=== PATIENT | male | born 1950 | race Caucasian/White ===

== ENCOUNTER 2016-04-28 10:18 | Emergency (ER) | payer MEDICARE ==
[~2016-04-28] VITALS: Ht 185.4 cm; Wt 83.9 kg
--- NOTE | 2016-04-28 13:02 | RAD ---
Acute abdomen series History: Constipation for 4 days. Comparison: 11/15/2011. Findings: Frontal view of the chest. Cardiac silhouette appears within normal limits for size. No pneumoperitoneum or pneumothorax is identified. No acute infiltrate is seen. Aortic atherosclerosis is seen. Supine and upright views of the abdomen. No dilated loops of bowel are seen. Gastrostomy tube is present. Moderate colonic stool is seen. Several calcifications are seen in both sides of the upper abdomen, could be nephroliths versus other soft tissue calcifications versus bowel contents. Impression: No acute abnormality identified in the chest or abdomen.
[2016-04-28] MEDS ORDERED: SODIUM PHOSPHATES 19/7GM 133 ML ENEMA. PR ONE (14:15)
--- NOTE | 2016-04-28 14:58 | PHYS DOC ---
Past Medical History Past Medical History: Other Additional Past Medical Histor: TBI Past Surgical History: Other Additional Past Surgical Histo: PEG tube placement Alcohol Use: None Drug Use: None Adult General Chief Complaint Chief Complaint: ABDOMINAL PAIN HPI HPI Patient is a 66 year old male who presents for evaluation after family reports the patient has not had a bowel movement in 4 days. 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 The family states that patient has history of constipation. The patient's is typically able to help the patient have a bowel movement by using laxatives and enemas as necessary, however she has tried both of these modalities and has not been able to get any results. The patient has become more agitated at home and they're concerned that the patient may be having abdominal pain due to lack of bowel movement. The patient otherwise has had no fevers. The patient has a chronic cough and the states that this has not changed recently. The brought the patient to the hospital as she would like to make sure the patient is not having any signs of bowel obstruction and would like assistance with helping the patient have a bowel movement. Review of Systems Review of Systems Unable to obtain from patient due to nonverbal status with history of traumatic brain injury Current Medications Current Medications Current Medications Medications (Trade) Dose Ordered Sig/Zak Start Time Stop Time Status Last Admin Dose Admin Sodium Biphosphate/ Sodium Phosphate (Fleet Adult) 133 ml 1X ONCE 04/28/16 14:15 04/28/16 14:16 DC 04/28/16 14:15 133 ML Allergies Allergies Allergies Coded Allergies Type Severity Reaction Last Updated Verified cyclobenzaprine Allergy Intermediate 04/28/16 Yes ibuprofen Allergy Intermediate 04/28/16 Yes ketorolac Allergy Intermediate 04/28/16 Yes levofloxacin Allergy Intermediate 04/28/16 Yes meperidine Allergy Intermediate 04/28/16 Yes oxycodone Allergy Intermediate 04/28/16 Yes propoxyphene Allergy Intermediate 04/28/16 Yes Physical Exam Physical Exam Constitutional: Alert, afebrile, moaning, appears in chronically debilitated state. [] HENT: Normocephalic, atraumatic, bilateral external ears normal, oropharynx moist, no oral exudates, nose normal. [] Eyes: PERRLA, EOMI, conjunctiva normal, no discharge. [] Neck: Normal range of motion, no tenderness, supple, no stridor. [] Cardiovascular:Heart rate regular rhythm, no murmur [] Lungs & Thorax: Bilateral breath sounds clear to auscultation [] Abdomen: Bowel sounds hypoactive, soft, no tenderness, no masses, no pulsatile masses. [] Skin: Warm, dry, no erythema, no rash. [] Back: No tenderness, no CVA tenderness. [] Extremities: No tenderness, no cyanosis, no clubbing, ROM intact, no edema. [] Neurologic: Alert, does not follow commands, incomprehensible speech, quadriplegic. [] Current Patient Data Vital Signs Vital Signs Date Time Temp Pulse Resp B/P Pulse Ox O2 Delivery O2 Flow Rate FiO2 04/28/16 17:35 84 22 129/61 97 04/28/16 10:38 98.9 Nasal Cannula 2 98.9 EKG EKG Not performed [] Radiology/Procedures Radiology/Procedures [facility] [address] [place] [address] IMAGING REPORT Signed PATIENT: POP ROQUE ACCOUNT: [id number] : 1950 LOCATION: ER AGE: 66 SEX: M EXAM STATUS: REG ER ORD. PHYSICIAN: ANN BUCKLEY MD REASON: no bowel movement for 4 days PROCEDURE: ACUTE ABDOMEN SERIES Acute abdomen series History: Constipation for 4 days. Comparison: 11/15/2011. Findings: Frontal view of the chest. Cardiac silhouette appears within normal limits for size. No pneumoperitoneum or pneumothorax is identified. No acute infiltrate is seen. Aortic atherosclerosis is seen. Supine and upright views of the abdomen. No dilated loops of bowel are seen. Gastrostomy tube is present. Moderate colonic stool is seen. Several calcifications are seen in both sides of the upper abdomen, could be nephroliths versus other soft tissue calcifications versus bowel contents. Impression: No acute abnormality identified in the chest or abdomen. DICTATED and SIGNED BY: JASON ESTRELLA MD DATE: 04/28/16 1259 CC: ANN BUCKLEY MD; CRISTIAN BANKS NP ~ [] Course & Med Decision Making Course & Med Decision Making Pertinent Labs and Imaging studies reviewed. (See chart for details) Patient underwent manual disimpaction in the emergency department with return of soft stool. The patient additionally had a Fleet enema done with return of moderate amounts of stool. The patient status has improved at this time. The patient's would like the patient transferred back home by ambulance. The patient was transferred back by [facility] ambulance in good condition. Dragon Disclaimer Dragon Disclaimer This electronic medical record was generated, in whole or in part, using a voice recognition dictation system. Departure Departure Impression: Primary Impression: Constipation Additional Impression: History of traumatic brain injury Disposition: HOME, SELF-CARE Condition: IMPROVED Referrals: CRISTIAN BANKS [employer] (PCP) Patient Instructions: Constipation, Adult Additional Instructions: Follow-up through primary doctor in the next 5-7 days. Return to the emergency department for any worsening symptoms. Problem Qualifiers Primary Impression: Constipation Constipation type: unspecified constipation type Qualified Code: K59.00 - Constipation, unspecified ANN BUCKLEY MD Apr 28, 2016 14:58
[2016-04-28 17:35] VITALS: BP 129/61
== END 2016-04-28 18:42 | disposition home or self-care (01) ==
LOC: ER 10:18
DX: K59.00 Constipation, unspecified (principal); Z87.820 Personal history of traumatic brain injury; Z88.1 Allergy status to other antibiotic agents; Z88.6 Allergy status to analgesic agent; Z88.5 Allergy status to narcotic agent; Z88.8 Allergy status to other drugs, medicaments and biological substances
CPT/HCPCS: 74022; 99284

== ENCOUNTER 2016-08-08 05:29 | Emergency (ER) | payer MEDICARE ==
[~2016-08-08] VITALS: Ht 182.9 cm; Wt 79.4 kg
[2016-08-08] MEDS ORDERED: IPRATRPIUM/ALBUTEROL 0.5/2.5MG 3 ML NEBU. NEB ONE (06:00)
[2016-08-08 06:20] LABS: BASO % 1 % (0-3); EOS % 3 % (0-3); HEMATOCRIT 40.8 % (39.0-53.0); LYMPH # 1.2 x10^3/uL (1.0-4.8); LYMPH % 23 % (24-48); MEAN CORPUSCULAR HEMOGLOBIN 34 pg (25-35); MEAN CORPUSCULAR HGB CONC 34 g/dL (31-37); MEAN CORPUSCULAR VOLUME 100 fL (79-100); MONO % 10 % (0-9); NEUT % 63 % (31-73); PLATELET COUNT 179 x10^3/uL (140-400); RED BLOOD COUNT 4.08 x10^6/uL (4.30-5.70); RED CELL DISTRIBUTION WIDTH 12.8 % (11.5-14.5); WHITE BLOOD COUNT 4.9 x10^3/uL (4.0-11.0)
[2016-08-08 06:28] LABS: CALCIUM 9.1 mg/dL (8.5-10.1); CREATININE 0.5 mg/dL (0.7-1.3); GFR 165.9; POTASSIUM 4.8 mmol/L (3.5-5.1)
[2016-08-08 06:34] LABS: ALBUMIN 3.2 g/dL (3.4-5.0); DIRECT BILIRUBIN 0.2 mg/dL (0.0-0.2); TOTAL BILIRUBIN 0.8 mg/dL (0.2-1.0); TOTAL PROTEIN 7.6 g/dL (6.4-8.2)
[2016-08-08 07:00] VITALS: BP 123/86
[2016-08-08] MEDS ORDERED: AZIT250T6 PO (07:12)
[2016-08-08] MEDS ORDERED: PROAIR HFA8.5 GM INH (07:13)
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
--- NOTE | 2016-08-08 07:52 | RAD ---
AP portable chest radiograph 08/08/2016 Clinical History: Shortness of breath. An AP portable erect digital radiograph of the chest was obtained. Comparison study is dated 04/28/2016. The cardiac silhouette is borderline enlarged. The thoracic aorta is tortuous. Atherosclerotic calcification of the thoracic aorta is seen. Areas of subsegmental atelectasis and/or infiltrate are seen involving both lower lobes, left greater than right. No pneumothorax or pleural effusion is seen. The osseous structures are unchanged. Impression: Areas of subsegmental atelectasis and/or infiltrate are seen involving both lower lobes, left greater than right.
== END 2016-08-08 08:42 | disposition home or self-care (01) ==
LOC: ER 05:29
DX: R05 Cough (principal); R06.2 Wheezing; J43.9 Emphysema, unspecified; F43.10 Post-traumatic stress disorder, unspecified; Z87.820 Personal history of traumatic brain injury; Z87.01 Personal history of pneumonia (recurrent); Z88.6 Allergy status to analgesic agent; Z88.1 Allergy status to other antibiotic agents; Z88.5 Allergy status to narcotic agent; Z88.8 Allergy status to other drugs, medicaments and biological substances
CPT/HCPCS: 36415; 71010; 80048; 80076; 83690; 83880; 84484; 85027; 94640; 99285; J7620

== ENCOUNTER 2017-07-10 04:14 | Emergency (ER) | payer MEDICARE ==
[2017-07-10 05:07] LABS: INFLUENZA A PATIENT NEGATIVE (NEGATIVE); INFLUENZA B PATIENT NEGATIVE (NEGATIVE); OBC FLU VALID
[2017-07-10 05:31] LABS: ADD MAN DIFF? NO
[2017-07-10 06:06] LABS: ANION GAP 6 (6-14); BLOOD UREA NITROGEN 18 mg/dL (8-26); CALCIUM 8.7 mg/dL (8.5-10.1); CARBON DIOXIDE 32 mmol/L (21-32); CHLORIDE 103 mmol/L (98-107); CREATININE 0.6 mg/dL (0.7-1.3); GLUCOSE 106 mg/dL (70-99); POTASSIUM 4.1 mmol/L (3.5-5.1); SODIUM 141 mmol/L (136-145)
[2017-07-10 06:18] LABS: TROPONINI < 0.017 ng/mL (0.000-0.055)
[2017-07-10 06:19] LABS: NT-PRO BNP 127 pg/mL (0-124)
[2017-07-10 06:43] LABS: BASO % 1 % (0-3); EOS # 0.1 x10^3/uL (0.0-0.7); EOS % 2 % (0-3); HEMATOCRIT 39.3 % (39.0-53.0); HEMOGLOBIN 13.4 g/dL (13.0-17.5); LYMPH # 1.1 x10^3/uL (1.0-4.8); LYMPH % 21 % (24-48); MEAN CORPUSCULAR HEMOGLOBIN 34 pg (25-35); MEAN CORPUSCULAR HGB CONC 34 g/dL (31-37); MEAN CORPUSCULAR VOLUME 99 fL (79-100); MONO # 0.4 x10^3/uL (0.0-1.1); MONO % 9 % (0-9); NEUT # 3.4 x10^3uL (1.8-7.7); NEUT % 68 % (31-73); PLATELET COUNT 214 x10^3/uL (140-400); RED BLOOD COUNT 3.96 x10^6/uL (4.30-5.70); RED CELL DISTRIBUTION WIDTH 13.4 % (11.5-14.5); WHITE BLOOD COUNT 5.1 x10^3/uL (4.0-11.0)
== END 2017-07-10 09:29 | disposition home or self-care (01) ==
LOC: ER 04:14
DX: R05 Cough (principal); R06.00 Dyspnea, unspecified; F43.10 Post-traumatic stress disorder, unspecified; Z87.820 Personal history of traumatic brain injury; Z88.1 Allergy status to other antibiotic agents; Z88.5 Allergy status to narcotic agent; Z88.6 Allergy status to analgesic agent; Z88.8 Allergy status to other drugs, medicaments and biological substances
CPT/HCPCS: 36415; 71045; 80048; 83880; 84484; 85025; 87804; 87804-59; 93005; 99285-25

== ENCOUNTER → 2018-06-29 | Outpatient (CLI) | payer MEDICARE, OTHER ==
[2017-07-10 09:18] VITALS: BP 100/57
[~2018-06-29] MED LIST: ALBU2.5V8 INH; AZIT250T6 PO
--- NOTE | 2018-06-29 15:58 | RAD ---
EXAM: CHEST 2 VIEWS. HISTORY: Cough, quadriplegia. COMPARISON: 07/10/2017. FINDINGS: Frontal and lateral views of the chest are obtained. Opacity in the left base is consistent with a small left pleural effusion along with atelectasis or infiltrate. There is no pneumothorax. The heart is not enlarged. There are atherosclerotic calcifications of the aorta. IMPRESSION: 1. Small left pleural effusion with mild left basilar atelectasis or infiltrate. Electronically signed by: Cas Vazquez MD (06/29/2018 3:55 PM) [place] [id number]
== END | disposition home or self-care (01) ==
LOC: RAD 14:55
PROVIDERS: ATTEND Family Medicine
DX: J90 Pleural effusion, not elsewhere classified (principal); G82.50 Quadriplegia, unspecified; I70.0 Atherosclerosis of aorta
CPT/HCPCS: 71046

== ENCOUNTER 2018-11-20 22:19 | Inpatient (IN) | payer OTHER ==
[~2018-11-20] VITALS: Ht 185.4 cm; Wt 78.0 kg
[~2018-11-20 22:19] MED LIST changes: +ALBU2.5V5 NEB; +BISM262O3 PEG; +DEXT15DR5 EACHEYE; +FLUT16SP NS; +GUAI100L12 PO; +LINE600T PO; +LORA10CA PO; +MUPI15CR8 TP; +TRAM50TA PO
[2018-11-20] MEDS ORDERED: 0.9 % SOD CHL for STERILE FIELD 10 ML DISP.SYRIN. ONE (22:37)
[2018-11-20] MEDS ORDERED: PROPOFOL 100 ML IV ONE (22:40)
[2018-11-20] MEDS: IV NORMAL SALINE 1000ML BAG 1,000 ML IV SCH ×2 (22:40→23:20)
[2018-11-20] MEDS ORDERED: PIP/TAZO PER PHARMACY MC PRN (23:00)
[2018-11-20] MEDS ORDERED: NOREPINEPHRIN 8MG/250ML PREMIX 250 ML IV ONE ×2 (23:00→23:30)
[2018-11-20 23:26] LABS: BASO # 0.2 x10^3/uL (0.0-0.2); BASO % 2 % (0-3); EOS % 0 % (0-3); HEMATOCRIT 34.6 % (39.0-53.0); HEMOGLOBIN 11.5 g/dL (13.0-17.5); LYMPH # 0.2 x10^3/uL (1.0-4.8); LYMPH % 1 % (24-48); MEAN CORPUSCULAR HEMOGLOBIN 33 pg (25-35); MEAN CORPUSCULAR HGB CONC 33 g/dL (31-37); MEAN CORPUSCULAR VOLUME 101 fL (79-100); MONO # 0.6 x10^3/uL (0.0-1.1); MONO % 4 % (0-9); NEUT # 13.6 x10^3/uL (1.8-7.7); NEUT % 93 % (31-73); PLATELET COUNT 222 x10^3/uL (140-400); RED BLOOD COUNT 3.43 x10^6/uL (4.30-5.70); WHITE BLOOD COUNT 14.6 x10^3/uL (4.0-11.0)
[2018-11-20] MEDS ORDERED: PROPOFOL 10 MG/ML (20ML) VIAL. IV ONE (23:30)
[2018-11-20 23:39] LABS: BILIRUBIN,URINE NEGATIVE (NEG); CLARITY,URINE CLEAR; COLOR,URINE YELLOW; NITRITE,URINE NEGATIVE (NEG); PROTEIN,URINE 30 mg/dL (NEG-TRACE)
[2018-11-20 23:44] LABS: CALCIUM 8.1 mg/dL (8.5-10.1); CREATININE 0.9 mg/dL (0.7-1.3); GFR 83.7; POTASSIUM 3.8 mmol/L (3.5-5.1)
[2018-11-20] MEDS ORDERED: PROPOFOL 50 ML IV ONE (23:45)
[2018-11-20 23:48] LABS: ALBUMIN 2.2 g/dL (3.4-5.0); ALBUMIN/GLOBULIN RATIO 0.6 (1.0-1.7); MAGNESIUM 1.7 mg/dL (1.8-2.4); TOTAL BILIRUBIN 0.6 mg/dL (0.2-1.0); TOTAL PROTEIN 5.9 g/dL (6.4-8.2)
[2018-11-20 23:56] LABS: AMORPHOUS SEDIMENT,UR PRESENT /HPF; BACTERIA,URINE 0 /HPF (0-FEW); GRANULAR CASTS,URINE FEW /HPF; HYALINE CASTS, URINE MODERATE /HPF; SQUAMOUS EPITHELIAL CELL,UR FEW /LPF; WBC,URINE 20-40 /HPF (0-4)
[2018-11-21] VITALS (30 sets, daily range): BP systolic 47–155; BP diastolic 35–79
[2018-11-21] LABS: BASE EXCESS ABG 3 mmol/L (-3-3); HCO3 ABG 28 mmol/L (21-28); PCO2 ABG 44 mmHg (35-46); PO2 ABG 172 mmHg (65-108); SAT O2 ABG 99 % (92-99)
[2018-11-21 00:01] LABS: FIO2 ABG 100
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
[2018-11-21] MEDS: IV NORMAL SALINE 1000ML BAG 1,000 ML IV SCH (00:50)
[2018-11-21] MEDS ORDERED: IV NORMAL SALINE 1000ML BAG 1,000 ML IV ONE (01:00)
[2018-11-21 01:36] LABS: % LYMPHS 1 % (24-48); % MONOS 2 % (0-10); % SEGS 97 % (35-66)
[2018-11-21 01:37] LABS: PLT ESTIMATE ADEQUATE (ADEQUATE)
[2018-11-21] MEDS ORDERED: VANCOMYCIN 2 GM in IV NORMAL SALINE 500ML BAG 500 ML IV ONE (02:00)
[2018-11-21] MEDS ORDERED: ETOMIDATE 20 MG/10 ML VIAL. IV ONE (03:11)
[2018-11-21] MEDS ORDERED: ROCURONIUM 50 MG/5 ML VIAL. ONE ×2 (03:12)
[2018-11-21] MEDS: PROPOFOL 100 ML IV PRN ×2 (03:18→10:05)
--- NOTE | 2018-11-21 04:00 | NUR ---
PATIENT ADMITTED TO ICU ROOM 105 FROM ED. REPORT RECEIVED FROM MARCELLA SARAVIA. UPON ARRIVAL TO ICU PATIENT INTUBATED WITH PROPOFOL AND LEVOPHED INFUSING. BP ELEVATED, LEVOPHED HELD THEN RESTARTED, TITRATED. IVFS RECEIVED FROM ED PER SEPSIS PROTOCOL. ARRIVED WITH ABX, AND BLOOD CULTURES AND LACTIC ACID DRAWN. NO FAMILY PRESENT AT BEDSIDE. UNABLE TO COMPLETE FULL ADMISSION QUESTIONS AND NO PAPERWORK NOTED FROM [facility]. VSS WITH LEVOPHED. WILL CONTINUE TO MONITOR.
[2018-11-21] MEDS: PIPERACILLIN/TAZOBACTAM 3.375 GM in IV NORMAL SALINE 50ML 50 ML IV SCH ×4 (04:07→18:00)
[2018-11-21] MEDS: VANCOMYCIN PER PHARMACY MC PRN (05:02)
--- NOTE | 2018-11-21 05:03 | NUR ---
Pharmacy Vancomycin Dosing Note S:Consulted to monitor and dose vancomycin started 11/21/18. O:POP ROQUE is a 68 year old M with Sepsis Pneumonia . Height: 6 feet, 1 inches Weight: 83.262658 kg [place] Body Weight: 79.90 Adjusted Body Weight: 81.38 Dosing Weight: Actual Other Antibiotics: ZOSYN 3.375 GM Q6H LABS: Last BUN: 24 Last Creatinine: 0.9 Creatinine Clearance: 81 mL/min Last WBC: 14.6 Last Procalcitonin: Tmax (past 24 hours): Microbiology: I/O: Drug Levels: Last level: on at Last dose given 11/21/18 at 0400 Vancomycin Dosing: Loading Dose: 2000 mg x1 Dosing Weight: Actual Target Trough: 15-20 A: Based on: WT AND CRCL P: 1. Begin Vancomycin 1250 mg IV q12h 2. Follow up Trough level on 11/22/18 at 1530 3. Pharmacy will continue to monitor, follow and adjust therapy as needed. KAYLA MILES RPH, 11/21/18 0503 Signed: 11/21/18 at 0503 by KAYLA MILES RPH PHA
--- NOTE | 2018-11-21 06:52 | EKG ---
[facility] [address] [place] [address] Test Date: 2018-11-20 Test Time: 23:07:23 Pat Name: POP ROQUE Department: Room: Gender: M Quality Controller: : 1950 Requested By: LEE CROWDER Order Number: [id number] Reading MD: Measurements Intervals Louise Rate: 135 P: AL: QRS: -9 QRSD: 82 T: 57 QT: 308 QTc: 466 Interpretive Statements ATRIAL FIB./FLUTTER WITH RAPID VENTRICULAR RESPONSE LEFTWARD AXIS NON SPECIFIC T ABNORMALITY ABNORMAL ECG No previous ECG available for comparison
[2018-11-21] MEDS ORDERED: MAGNESIUM SULFATE 2GM 50 ML IV ONE (07:30)
[2018-11-21] MEDS ORDERED: NOREPINEPHRIN 8MG/250ML PREMIX 250 ML IV PRN (08:00)
--- NOTE | 2018-11-21 08:00 | RAD ---
Examination: PORTABLE CHEST 1V History: Post intubation Comparison/Correlation: 11/10/2018 portable chest x-ray exam Findings: Portable supine frontal new of the chest was obtained. Endotracheal tube terminates 0.6 cm from the nestor. Right internal jugular catheter terminates overlying the superior cavoatrial junction. Subtle opacification the left lung base which is similar to prior exam again noted. Opacification of the right lung base is mild in the interval. No pneumothorax but supine position may limit assessment. Bony structures are unremarkable. Impression: Left basilar opacification which may represent atelectasis again seen without significant change considering differences in positioning. Elevation right hemidiaphragm the interval suggested. Subtle adjacent atelectasis may be present. Electronically signed by: Mark Tilley MD (11/21/2018 7:57 AM) [facility]
--- NOTE | 2018-11-21 08:26 | RAD ---
EXAM: Abdomen, single view HISTORY: Nasogastric tube placement. COMPARISON: None. FINDINGS: A frontal view of the abdomen is obtained. There is a nasogastric tube within the stomach. There is a catheter within the superior cavoatrial junction. There is a small left pleural effusion with left lower lobe atelectasis or infiltrate. There are calcifications and clips. There are calcifications overlying the left upper quadrant. IMPRESSION: Nasogastric tube within the stomach. Small left pleural effusion with left lower lobe infiltrate. Electronically signed by: Madelin Harvey MD (11/21/2018 8:23 AM) [place] [id number]
[2018-11-21 09:14] LABS: BASE EXCESS ABG 5 mmol/L (-3-3); HCO3 ABG 27 mmol/L (21-28); PCO2 ABG 32 mmHg (35-46); PO2 ABG 135 mmHg (65-108); SAT O2 ABG 99 % (92-99)
[2018-11-21 09:16] LABS: FIO2 ABG 60
[2018-11-21] MEDS ORDERED: ENOXAPARIN 40 MG/0.4 ML SYRINGE. SQ SCH (10:15)
[2018-11-21] MEDS: MIDAZOLAM 100mg/100ml NS BAG 100 ML IV PRN (10:54)
--- NOTE | 2018-11-21 11:16 | HP ---
ADMIT DATE: CHIEF COMPLAINT: Shortness of breath. HISTORY OF PRESENT ILLNESS: The patient is a pleasant 68-year-old male who has COPD and presented with shortness of breath. Basically, he was intubated. He is now in the ICU. He apparently did have aspiration pneumonia, was placed on IV antibiotics as well. He is currently being examined in the ICU where he is on the ventilator. PAST MEDICAL HISTORY: Aspiration pneumonia, COPD, constipation, dementia, depression, diabetes, GERD, kidney stones, TBI from a suicide attempt, PTSD, AAA, cholecystectomy, PEG tube. ALLERGIES: CYCLOBENZAPRINE, IBUPROFEN, CHICORIC ACID, LEVAQUIN, MEPERIDINE, OXYCODONE AND PROPOXYPHENE NAPSYLATE. FAMILY HISTORY: Coronary artery disease. SOCIAL HISTORY: I think he lives at a facility there I think he quit smoking. No drinking or drugs. MEDICATIONS: Reviewed, please refer to the MRAD. REVIEW OF SYSTEMS: Unable to obtain. PHYSICAL EXAMINATION: VITALS: Within normal limits and are stable. GENERAL: He is sedated on the vent with the vent settings at assist control 20 respirations, 450 tidal volume, 40% FiO2 with 5 of PEEP. HEENT: Head is normocephalic, atraumatic, pupils were equally round and reactive to light and accommodation. NECK: Supple, no JVD, no thyromegaly was noted. LUNGS: He has got some hoarseness on the right upper lobe. HEART: RRR, S1, S2 present. Peripheral pulses intact, no obvious murmurs were noted. ABDOMEN: Soft, nontender. Positive bowel sounds no organomegaly, normal bowel sounds. EXTREMITIES: Without any cyanosis, clubbing, or edema. Pedal pulses intact, Homans sign is negative. NEUROLOGIC: Normal speech, normal tone. A & O x3, moves all extremities, no obvious focal deficits. PSYCHIATRIC: Normal affect, normal mood. Stable. SKIN: No ulcerations or rashes, good skin turgor, no jaundice. VASCULAR: Good capillary refill, neurovascular bundle appears to be intact. LABORATORY DATA: White count is high at 14.6, hemoglobin 11.5. ASSESSMENT AND PLAN: Aspiration pneumonia with respiratory failure and chronic obstructive pulmonary disease. The patient has been admitted. He also has a slight bump in his troponin to 0.6. We will consult Pulmonary and Cardiology, ICU monitoring, vent weaning, DVT prophylaxis. Full code. LONG-TERM PROGNOSIS: Guarded. FADI BEARD DO DR: JT/darlene JOB#: [id number] / [id number]
--- NOTE | 2018-11-21 11:41 | PDOC ---
PULMONARY PROGRESS NOTES Vitals Vital Signs Date Time Temp Pulse Resp B/P (MAP) Pulse Ox O2 Delivery O2 Flow Rate FiO2 11/21/18 11:29 98.6 72 102/69 (80) 100 98.6 11/21/18 10:00 20 Ventilator 11/21/18 08:00 15.0 Lungs: Other Skin: Warm, Dry (BP AND HEART RATE IMPROVED. ) Labs Laboratory Tests Test 11/20/18 23:02 11/20/18 23:10 11/20/18 23:15 11/21/18 01:55 Urine Collection Type Unknown Urine Color Yellow Urine Clarity Clear Urine pH 6.0 Urine Specific [place] 1.020 Urine Protein 30 mg/dL (NEG-TRACE) Urine Glucose (UA) Negative mg/dL (NEG) Urine Ketones (Stick) Negative mg/dL (NEG) Urine Blood Small (NEG) Urine Nitrite Negative (NEG) Urine Bilirubin Negative (NEG) Urine Urobilinogen Dipstick 1.0 mg/dL (0.2 mg/dL) Urine Leukocyte Esterase Trace (NEG) Urine RBC 1-2 /HPF (0-2) Urine WBC 20-40 /HPF (0-4) Urine Squamous Epithelial Cells Few /LPF Urine Amorphous Sediment Present /HPF Urine Bacteria 0 /HPF (0-FEW) Urine Hyaline Casts Moderate /HPF Urine Granular Casts Few /HPF Urine Mucus Marked /LPF White Blood Count 14.6 x10^3/uL (4.0-11.0) Red Blood Count 3.43 x10^6/uL (4.30-5.70) Hemoglobin 11.5 g/dL (13.0-17.5) Hematocrit 34.6 % (39.0-53.0) Mean Corpuscular Volume 101 fL (79-100) Mean Corpuscular Hemoglobin 33 pg (25-35) Mean Corpuscular Hemoglobin Concent 33 g/dL (31-37) Red Cell Distribution Width 13.0 % (11.5-14.5) Platelet Count 222 x10^3/uL (140-400) Neutrophils (%) (Auto) 93 % (31-73) Lymphocytes (%) (Auto) 1 % (24-48) Monocytes (%) (Auto) 4 % (0-9) Eosinophils (%) (Auto) 0 % (0-3) Basophils (%) (Auto) 2 % (0-3) Neutrophils # (Auto) 13.6 x10^3/uL (1.8-7.7) Lymphocytes # (Auto) 0.2 x10^3/uL (1.0-4.8) Monocytes # (Auto) 0.6 x10^3/uL (0.0-1.1) Eosinophils # (Auto) 0.0 x10^3/uL (0.0-0.7) Basophils # (Auto) 0.2 x10^3/uL (0.0-0.2) Segmented Neutrophils % 97 % (35-66) Lymphocytes % 1 % (24-48) Monocytes % 2 % (0-10) Platelet Estimate Adequate (ADEQUATE) Prothrombin Time 16.0 SEC (11.7-14.0) Prothromb Time International Ratio 1.3 (0.8-1.1) Sodium Level 145 mmol/L (136-145) Potassium Level 3.8 mmol/L (3.5-5.1) Chloride Level 107 mmol/L (98-107) Carbon Dioxide Level 31 mmol/L (21-32) Anion Gap 7 (6-14) Blood Urea Nitrogen 24 mg/dL (8-26) Creatinine 0.9 mg/dL (0.7-1.3) Estimated GFR (Cockcroft-Gault) 83.7 BUN/Creatinine Ratio 27 (6-20) Glucose Level 182 mg/dL (70-99) Lactic Acid Level 3.3 mmol/L (0.4-2.0) 2.4 mmol/L (0.4-2.0) Calcium Level 8.1 mg/dL (8.5-10.1) Magnesium Level 1.7 mg/dL (1.8-2.4) Total Bilirubin 0.6 mg/dL (0.2-1.0) Aspartate Amino Transf (AST/SGOT) 29 U/L (15-37) Alanine Aminotransferase (ALT/SGPT) 24 U/L (16-63) Alkaline Phosphatase 54 U/L (46-116) Troponin I Quantitative 0.642 ng/mL (0.000-0.055) GK-Djl-P-Type Natriuretic Peptide 1016 pg/mL (0-124) Total Protein 5.9 g/dL (6.4-8.2) Albumin 2.2 g/dL (3.4-5.0) Albumin/Globulin Ratio 0.6 (1.0-1.7) Lipase 59 U/L (73-393) O2 Saturation 99 % (92-99) Arterial Blood pH 7.42 (7.35-7.45) Arterial Blood pCO2 at Patient Temp 44 mmHg (35-46) Arterial Blood pO2 at Patient Temp 172 mmHg (65-108) Arterial Blood HCO3 28 mmol/L (21-28) Arterial Blood Base Excess 3 mmol/L (-3-3) FiO2 100 Test 11/21/18 08:45 O2 Saturation 99 % (92-99) Arterial Blood pH 7.54 (7.35-7.45) Arterial Blood pCO2 at Patient Temp 32 mmHg (35-46) Arterial Blood pO2 at Patient Temp 135 mmHg (65-108) Arterial Blood HCO3 27 mmol/L (21-28) Arterial Blood Base Excess 5 mmol/L (-3-3) FiO2 60 Laboratory Tests Test 11/20/18 23:02 11/20/18 23:10 11/20/18 23:15 11/21/18 01:55 Urine Collection Type Unknown Urine Color Yellow Urine Clarity Clear Urine pH 6.0 Urine Specific [place] 1.020 Urine Protein 30 mg/dL (NEG-TRACE) Urine Glucose (UA) Negative mg/dL (NEG) Urine Ketones (Stick) Negative mg/dL (NEG) Urine Blood Small (NEG) Urine Nitrite Negative (NEG) Urine Bilirubin Negative (NEG) Urine Urobilinogen Dipstick 1.0 mg/dL (0.2 mg/dL) Urine Leukocyte Esterase Trace (NEG) Urine RBC 1-2 /HPF (0-2) Urine WBC 20-40 /HPF (0-4) Urine Squamous Epithelial Cells Few /LPF Urine Amorphous Sediment Present /HPF Urine Bacteria 0 /HPF (0-FEW) Urine Hyaline Casts Moderate /HPF Urine Granular Casts Few /HPF Urine Mucus Marked /LPF White Blood Count 14.6 x10^3/uL (4.0-11.0) Red Blood Count 3.43 x10^6/uL (4.30-5.70) Hemoglobin 11.5 g/dL (13.0-17.5) Hematocrit 34.6 % (39.0-53.0) Mean Corpuscular Volume 101 fL (79-100) Mean Corpuscular Hemoglobin 33 pg (25-35) Mean Corpuscular Hemoglobin Concent 33 g/dL (31-37) Red Cell Distribution Width 13.0 % (11.5-14.5) Platelet Count 222 x10^3/uL (140-400) Neutrophils (%) (Auto) 93 % (31-73) Lymphocytes (%) (Auto) 1 % (24-48) Monocytes (%) (Auto) 4 % (0-9) Eosinophils (%) (Auto) 0 % (0-3) Basophils (%) (Auto) 2 % (0-3) Neutrophils # (Auto) 13.6 x10^3/uL (1.8-7.7) Lymphocytes # (Auto) 0.2 x10^3/uL (1.0-4.8) Monocytes # (Auto) 0.6 x10^3/uL (0.0-1.1) Eosinophils # (Auto) 0.0 x10^3/uL (0.0-0.7) Basophils # (Auto) 0.2 x10^3/uL (0.0-0.2) Segmented Neutrophils % 97 % (35-66) Lymphocytes % 1 % (24-48) Monocytes % 2 % (0-10) Platelet Estimate Adequate (ADEQUATE) Prothrombin Time 16.0 SEC (11.7-14.0) Prothromb Time International Ratio 1.3 (0.8-1.1) Sodium Level 145 mmol/L (136-145) Potassium Level 3.8 mmol/L (3.5-5.1) Chloride Level 107 mmol/L (98-107) Carbon Dioxide Level 31 mmol/L (21-32) Anion Gap 7 (6-14) Blood Urea Nitrogen 24 mg/dL (8-26) Creatinine 0.9 mg/dL (0.7-1.3) Estimated GFR (Cockcroft-Gault) 83.7 BUN/Creatinine Ratio 27 (6-20) Glucose Level 182 mg/dL (70-99) Lactic Acid Level 3.3 mmol/L (0.4-2.0) 2.4 mmol/L (0.4-2.0) Calcium Level 8.1 mg/dL (8.5-10.1) Magnesium Level 1.7 mg/dL (1.8-2.4) Total Bilirubin 0.6 mg/dL (0.2-1.0) Aspartate Amino Transf (AST/SGOT) 29 U/L (15-37) Alanine Aminotransferase (ALT/SGPT) 24 U/L (16-63) Alkaline Phosphatase 54 U/L (46-116) Troponin I Quantitative 0.642 ng/mL (0.000-0.055) TA-Pht-O-Type Natriuretic Peptide 1016 pg/mL (0-124) Total Protein 5.9 g/dL (6.4-8.2) Albumin 2.2 g/dL (3.4-5.0) Albumin/Globulin Ratio 0.6 (1.0-1.7) Lipase 59 U/L (73-393) O2 Saturation 99 % (92-99) Arterial Blood pH 7.42 (7.35-7.45) Arterial Blood pCO2 at Patient Temp 44 mmHg (35-46) Arterial Blood pO2 at Patient Temp 172 mmHg (65-108) Arterial Blood HCO3 28 mmol/L (21-28) Arterial Blood Base Excess 3 mmol/L (-3-3) FiO2 100 Test 11/21/18 08:45 O2 Saturation 99 % (92-99) Arterial Blood pH 7.54 (7.35-7.45) Arterial Blood pCO2 at Patient Temp 32 mmHg (35-46) Arterial Blood pO2 at Patient Temp 135 mmHg (65-108) Arterial Blood HCO3 27 mmol/L (21-28) Arterial Blood Base Excess 5 mmol/L (-3-3) FiO2 60 Medications Active Scripts Medications Dose Route/Sig Max Daily Dose Days Date Category Tramadol Hcl 50 Mg Tablet 50 Mg PO PRN Q6HRS PRN 11/15/18 Rx Zyvox (Linezolid) 600 Mg Tablet 600 Mg PO BID 11/15/18 Rx Mupirocin Cream (Mupirocin) 15 Gm Cream..g. 1 Justina TP TID PRN 11/10/18 Reported Guaifenesin 100 Mg/5 Ml Liquid 100 Mg PO Q8HRS PRN 11/10/18 Reported Fluticasone Propionate Nasal Brandon (Fluticasone Propionate) 16 Gm Brandon.susp 2 Brandon NS DAILY 11/10/18 Reported Claritin (Loratadine) 10 Mg Capsule 10 Mg PO DAILY PRN 11/10/18 Reported Stomach Relief (Bismuth Subsalicylate) 262 Mg/15 Ml Oral.susp 262 Mg PEG Q6HRS PRN 11/10/18 Reported Artificial Tears Eye Drops (Dextran 70/Hypromellose) 15 Ml Drops 1 Drop EACHEYE QID PRN 11/10/18 Reported Albuterol Sulfate Neb Soln (Albuterol Sulfate) 2.5 Mg/3 Ml Vial.neb 2.5 Mg NEB Q8HRS PRN 11/10/18 Reported Proair Hfa Inhaler (Albuterol Sulfate) 8.5 Gm Hfa.aer.ad 1 Puff INH PRN Q6HRS PRN 08/08/16 Rx Azithromycin Tablet (Azithromycin) 250 Mg Tablet 1 Pkg PO UD 08/08/16 Rx Impression . FULL NOTE DICTATED A/C RESP FAILURE SEPTIC SHOCK PNEUMONIA JERI VAZQUEZ MD Nov 21, 2018 11:41
--- NOTE | 2018-11-21 11:47 | PDOC ---
Infectious Disease Note Vital Sign Vital Signs Vital Signs Date Time Temp Pulse Resp B/P (MAP) Pulse Ox O2 Delivery O2 Flow Rate FiO2 11/21/18 10:00 72 20 99/56 (70) 100 Ventilator 11/21/18 08:00 15.0 11/21/18 07:00 98.0 98.0 Labs Lab Laboratory Tests Test 11/20/18 23:02 11/20/18 23:10 11/20/18 23:15 11/21/18 01:55 Urine Collection Type Unknown Urine Color Yellow Urine Clarity Clear Urine pH 6.0 Urine Specific [place] 1.020 Urine Protein 30 mg/dL (NEG-TRACE) Urine Glucose (UA) Negative mg/dL (NEG) Urine Ketones (Stick) Negative mg/dL (NEG) Urine Blood Small (NEG) Urine Nitrite Negative (NEG) Urine Bilirubin Negative (NEG) Urine Urobilinogen Dipstick 1.0 mg/dL (0.2 mg/dL) Urine Leukocyte Esterase Trace (NEG) Urine RBC 1-2 /HPF (0-2) Urine WBC 20-40 /HPF (0-4) Urine Squamous Epithelial Cells Few /LPF Urine Amorphous Sediment Present /HPF Urine Bacteria 0 /HPF (0-FEW) Urine Hyaline Casts Moderate /HPF Urine Granular Casts Few /HPF Urine Mucus Marked /LPF White Blood Count 14.6 x10^3/uL (4.0-11.0) Red Blood Count 3.43 x10^6/uL (4.30-5.70) Hemoglobin 11.5 g/dL (13.0-17.5) Hematocrit 34.6 % (39.0-53.0) Mean Corpuscular Volume 101 fL (79-100) Mean Corpuscular Hemoglobin 33 pg (25-35) Mean Corpuscular Hemoglobin Concent 33 g/dL (31-37) Red Cell Distribution Width 13.0 % (11.5-14.5) Platelet Count 222 x10^3/uL (140-400) Neutrophils (%) (Auto) 93 % (31-73) Lymphocytes (%) (Auto) 1 % (24-48) Monocytes (%) (Auto) 4 % (0-9) Eosinophils (%) (Auto) 0 % (0-3) Basophils (%) (Auto) 2 % (0-3) Neutrophils # (Auto) 13.6 x10^3/uL (1.8-7.7) Lymphocytes # (Auto) 0.2 x10^3/uL (1.0-4.8) Monocytes # (Auto) 0.6 x10^3/uL (0.0-1.1) Eosinophils # (Auto) 0.0 x10^3/uL (0.0-0.7) Basophils # (Auto) 0.2 x10^3/uL (0.0-0.2) Segmented Neutrophils % 97 % (35-66) Lymphocytes % 1 % (24-48) Monocytes % 2 % (0-10) Platelet Estimate Adequate (ADEQUATE) Prothrombin Time 16.0 SEC (11.7-14.0) Prothromb Time International Ratio 1.3 (0.8-1.1) Sodium Level 145 mmol/L (136-145) Potassium Level 3.8 mmol/L (3.5-5.1) Chloride Level 107 mmol/L (98-107) Carbon Dioxide Level 31 mmol/L (21-32) Anion Gap 7 (6-14) Blood Urea Nitrogen 24 mg/dL (8-26) Creatinine 0.9 mg/dL (0.7-1.3) Estimated GFR (Cockcroft-Gault) 83.7 BUN/Creatinine Ratio 27 (6-20) Glucose Level 182 mg/dL (70-99) Lactic Acid Level 3.3 mmol/L (0.4-2.0) 2.4 mmol/L (0.4-2.0) Calcium Level 8.1 mg/dL (8.5-10.1) Magnesium Level 1.7 mg/dL (1.8-2.4) Total Bilirubin 0.6 mg/dL (0.2-1.0) Aspartate Amino Transf (AST/SGOT) 29 U/L (15-37) Alanine Aminotransferase (ALT/SGPT) 24 U/L (16-63) Alkaline Phosphatase 54 U/L (46-116) Troponin I Quantitative 0.642 ng/mL (0.000-0.055) QZ-Erl-G-Type Natriuretic Peptide 1016 pg/mL (0-124) Total Protein 5.9 g/dL (6.4-8.2) Albumin 2.2 g/dL (3.4-5.0) Albumin/Globulin Ratio 0.6 (1.0-1.7) Lipase 59 U/L (73-393) O2 Saturation 99 % (92-99) Arterial Blood pH 7.42 (7.35-7.45) Arterial Blood pCO2 at Patient Temp 44 mmHg (35-46) Arterial Blood pO2 at Patient Temp 172 mmHg (65-108) Arterial Blood HCO3 28 mmol/L (21-28) Arterial Blood Base Excess 3 mmol/L (-3-3) FiO2 100 Test 11/21/18 08:45 O2 Saturation 99 % (92-99) Arterial Blood pH 7.54 (7.35-7.45) Arterial Blood pCO2 at Patient Temp 32 mmHg (35-46) Arterial Blood pO2 at Patient Temp 135 mmHg (65-108) Arterial Blood HCO3 27 mmol/L (21-28) Arterial Blood Base Excess 5 mmol/L (-3-3) FiO2 60 Objective Assessment Sepsis - POA 11/20 Acute Resp failure intubated Leukocytosis elevated Troponin Levofloxacin allergy Plan Plan of Care Blood cults ordered Agree with Jazmine and Edwin for now. Jazmine per pharmacy to manage F/u labs and cults Chart reviewed Poor prognosis D/w Dr. Nielsen Thank you # [id number] JAZIEL MONSALVE MD Nov 21, 2018 11:47
--- NOTE | 2018-11-21 13:21 | PDOC2 ---
RABIA LOCKHART [employer] 11/21/18 1321: CARDIAC CONSULT DATE OF CONSULT Date of Consult DATE: 11/21/18 TIME: 13:08 REASON FOR CONSULT Reason for Consult: Elevated troponin REFERRING PHYSICIAN Referring Physician: Dr. Fine SOURCE Source: Chart review, Patient HISTORY OF PRESENT ILLNESS HISTORY OF PRESENT ILLNESS This is a 68 yo male, with a history of TBI, dysphagia s/p g-tube placement, and aspiration PNA, who presented secondary to respiratory distress and altered mental status. Was significantly hypoxic with O2 in the 50's upon EMS arrival. Intubated in the ED. Troponin noted to be elevated, which prompted this consult. HPI obtained from chart review as patient is intubated/sedated and family not presently at bedside. PAST MEDICAL HISTORY Past Medical History Cardiovascular: Other (AAA) Pulmonary: COPD CENTRAL NERVOUS SYSTEM: Dementia, Other (TBI) GI: Constipation, GERD, Other (dysphagia) Hepatobiliary: Cholelithiasis, Hep A/B/C (C) Psych: Depression, Other (PTSD; suicide attempt) Renal/: UTI, Other (nephrolithasis) Endocrine: Diabetes (2) PAST SURGICAL HISTORY Past Surgical History: Cholecystectomy, Other (G-tube placement ) FAMILY HISTORY Family History: Diabetes SOCIAL HISTORY Social History Smoke: Quit ALCOHOL: none Drugs: None Lives: Senior Living CURRENT MEDICATIONS CURRENT MEDICATIONS Current Medications Medications (Trade) Dose Ordered Sig/Zak Route PRN Reason Start Time Stop Time Status Last Admin Dose Admin Vancomycin HCl (Vanco Per Pharmacy) 1 each PRN DAILY PRN MC SEE COMMENTS 11/20/18 23:00 11/21/18 05:02 Sodium Chloride 1,000 ml @ 1,000 mls/hr Q1H IV 11/20/18 23:00 11/21/18 01:14 DC 11/21/18 00:50 Norepinephrine Bitartrate 250 ml @ 0 mls/hr 1X ONCE IV 11/20/18 23:30 11/20/18 23:31 DC 11/20/18 23:26 Propofol 50 ml @ 0 mls/hr 1X ONCE IV 11/20/18 23:45 11/20/18 23:46 DC 11/20/18 23:36 Sodium Chloride 1,000 ml @ 125 mls/hr 1X ONCE IV 11/21/18 01:00 11/21/18 08:59 DC 11/21/18 01:12 Vancomycin HCl 2 gm/Sodium Chloride 500 ml @ 250 mls/hr 1X ONCE IV 11/21/18 02:00 11/21/18 03:59 DC 11/21/18 04:06 Piperacillin Sod/ Tazobactam Sod 3.375 gm/Sodium Chloride 50 ml @ 100 mls/hr Q6HRS IV 11/21/18 01:45 11/21/18 08:17 Propofol 100 ml @ 0 mls/hr CONT PRN IV SEE I/O RECORD 11/21/18 03:00 11/21/18 10:05 Magnesium Sulfate 50 ml @ 25 mls/hr 1X ONCE IV 11/21/18 07:30 11/21/18 09:29 DC 11/21/18 08:17 Midazolam HCl 100 ml @ 0 mls/hr CONT PRN IV SEE PROTOCOL 11/21/18 10:15 11/21/18 10:54 Enoxaparin Sodium (Lovenox 40mg Syringe) 40 mg Q24H SQ 11/21/18 10:15 11/21/18 10:51 ALLERGIES ALLERGIES: Coded Allergies: cyclobenzaprine (Verified Allergy, Intermediate, 04/28/16) ibuprofen (Verified Allergy, Intermediate, 04/28/16) ketorolac (Verified Allergy, Intermediate, 04/28/16) levofloxacin (Verified Allergy, Intermediate, 04/28/16) meperidine (Verified Allergy, Intermediate, 04/28/16) oxycodone (Verified Allergy, Intermediate, 04/28/16) propoxyphene (Verified Allergy, Intermediate, 04/28/16) ROS Review of System unobtainable PHYSICAL EXAM PHYSICAL EXAM General: intubated, sedated HEENT: Atraumatic, Mucous membr. moist/pink Lungs: Other (diminished, mechanical vent) Heart: No murmurs, Other (AFIB rate controlled, distant heart tones) Abdomen: Soft, Other ( PEG in place) Extremities: No cyanosis, No edema Skin: No breakdown, No significant lesion Neuro: sedated MUSCULOSKELETAL: Osteoarthritic changes both hands VITALS/I&O VITALS/I&O: Vital Signs Date Time Temp Pulse Resp B/P (MAP) Pulse Ox O2 Delivery O2 Flow Rate FiO2 11/21/18 12:45 100 Ventilator 11/21/18 11:29 98.6 72 102/69 (80) 98.6 11/21/18 10:00 20 11/21/18 08:00 15.0 I & O 11/20/18 11/20/18 11/21/18 15:00 23:00 07:00 Intake Total 3071.18 ml Output Total 200 ml Balance 2871.18 ml LABS Lab: Laboratory Tests Test 11/20/18 23:02 11/20/18 23:10 11/20/18 23:15 11/21/18 01:55 Urine Collection Type Unknown Urine Color Yellow Urine Clarity Clear Urine pH 6.0 Urine Specific [place] 1.020 Urine Protein 30 mg/dL (NEG-TRACE) Urine Glucose (UA) Negative mg/dL (NEG) Urine Ketones (Stick) Negative mg/dL (NEG) Urine Blood Small (NEG) Urine Nitrite Negative (NEG) Urine Bilirubin Negative (NEG) Urine Urobilinogen Dipstick 1.0 mg/dL (0.2 mg/dL) Urine Leukocyte Esterase Trace (NEG) Urine RBC 1-2 /HPF (0-2) Urine WBC 20-40 /HPF (0-4) Urine Squamous Epithelial Cells Few /LPF Urine Amorphous Sediment Present /HPF Urine Bacteria 0 /HPF (0-FEW) Urine Hyaline Casts Moderate /HPF Urine Granular Casts Few /HPF Urine Mucus Marked /LPF White Blood Count 14.6 x10^3/uL (4.0-11.0) H Red Blood Count 3.43 x10^6/uL (4.30-5.70) L Hemoglobin 11.5 g/dL (13.0-17.5) L Hematocrit 34.6 % (39.0-53.0) L Mean Corpuscular Volume 101 fL (79-100) H Mean Corpuscular Hemoglobin 33 pg (25-35) Mean Corpuscular Hemoglobin Concent 33 g/dL (31-37) Red Cell Distribution Width 13.0 % (11.5-14.5) Platelet Count 222 x10^3/uL (140-400) Neutrophils (%) (Auto) 93 % (31-73) H Lymphocytes (%) (Auto) 1 % (24-48) L Monocytes (%) (Auto) 4 % (0-9) Eosinophils (%) (Auto) 0 % (0-3) Basophils (%) (Auto) 2 % (0-3) Neutrophils # (Auto) 13.6 x10^3/uL (1.8-7.7) H Lymphocytes # (Auto) 0.2 x10^3/uL (1.0-4.8) L Monocytes # (Auto) 0.6 x10^3/uL (0.0-1.1) Eosinophils # (Auto) 0.0 x10^3/uL (0.0-0.7) Basophils # (Auto) 0.2 x10^3/uL (0.0-0.2) Segmented Neutrophils % 97 % (35-66) H Lymphocytes % 1 % (24-48) L Monocytes % 2 % (0-10) Platelet Estimate Adequate (ADEQUATE) Prothrombin Time 16.0 SEC (11.7-14.0) H Prothrombin Time INR 1.3 (0.8-1.1) H Sodium Level 145 mmol/L (136-145) Potassium Level 3.8 mmol/L (3.5-5.1) Chloride Level 107 mmol/L (98-107) Carbon Dioxide Level 31 mmol/L (21-32) Anion Gap 7 (6-14) Blood Urea Nitrogen 24 mg/dL (8-26) Creatinine 0.9 mg/dL (0.7-1.3) Estimated GFR (Cockcroft-Gault) 83.7 BUN/Creatinine Ratio 27 (6-20) H Glucose Level 182 mg/dL (70-99) H Lactic Acid Level 3.3 mmol/L (0.4-2.0) H 2.4 mmol/L (0.4-2.0) H Calcium Level 8.1 mg/dL (8.5-10.1) L Magnesium Level 1.7 mg/dL (1.8-2.4) L Total Bilirubin 0.6 mg/dL (0.2-1.0) Aspartate Amino Transferase (AST) 29 U/L (15-37) Alanine Aminotransferase (ALT) 24 U/L (16-63) Alkaline Phosphatase 54 U/L (46-116) Troponin I Quantitative 0.642 ng/mL (0.000-0.055) DC-Nsu-R-Type Natriuretic Peptide 1016 pg/mL (0-124) H Total Protein 5.9 g/dL (6.4-8.2) L Albumin 2.2 g/dL (3.4-5.0) L Albumin/Globulin Ratio 0.6 (1.0-1.7) L Lipase 59 U/L (73-393) L O2 Saturation 99 % (92-99) Arterial Blood pH 7.42 (7.35-7.45) Arterial Blood pCO2 at Patient Temp 44 mmHg (35-46) Arterial Blood pO2 at Patient Temp 172 mmHg (65-108) H Arterial Blood HCO3 28 mmol/L (21-28) Arterial Blood Base Excess 3 mmol/L (-3-3) FiO2 100 Test 11/21/18 08:45 O2 Saturation 99 % (92-99) Arterial Blood pH 7.54 (7.35-7.45) H Arterial Blood pCO2 at Patient Temp 32 mmHg (35-46) L Arterial Blood pO2 at Patient Temp 135 mmHg (65-108) H Arterial Blood HCO3 27 mmol/L (21-28) Arterial Blood Base Excess 5 mmol/L (-3-3) H FiO2 60 Laboratory Tests 11/20/18 23:10 Laboratory Tests 11/20/18 23:10 ECHOCARDIOGRAM ECHOCARDIOGRAM <Conclusion> The left ventricular systolic function is normal and the ejection fraction is within normal range. The Ejection Fraction is >55%. There is normal LV segmental wall motion. Technically difficult study. DATE: 11/11/18 1015 ASSESSMENT/PLAN ASSESSMENT/PLAN 1. Acute respiratory failure secondary; s/p intubation 2. Aspiration PNA; as per ID 3. Leukocytosis, lactic acidosis, sepsis. Requiring low-dose Levo 4. Elevated troponin; most probably type II, demand ischemia. Recent echo with preserved LV systolic function 5. AFIB with RVR; rate now controlled 6. Hypomagnesemia; replaced 7. Hx of TBI/anoxic brain injury 8. Debility/dysphagia; s/p G-tube Recommendations Dig IV PRN Add ASA for stroke prevention. Consider anticoagulation Pressor support as warranted Supportive care KITTY MENDOZA MD 11/21/18 1640: CARDIAC CONSULT ASSESSMENT/PLAN ASSESSMENT/PLAN Patient seen and examined. Agree with WEIGHT CONTROL ENGINEER's assessment and plan. Slight troponin elevation probably demand ischemia. Recent 2-D echo showed normal LV function. Atrial fibrillation rate better controlled. Continue treatment for acute respiratory failure per pulmonary team and aspiration pneumonia per ID team. Thank you for your consultation. RABIA LOCKHART APRN Nov 21, 2018 13:21 KITTY MENDOZA MD Nov 21, 2018 16:40
[2018-11-21] MEDS: ASPIRIN CHEWABLE 81 MG TABLET. PO SCH (16:00)
[2018-11-21] MEDS: VANCOMYCIN 1.25 GM in IV NORMAL SALINE 250ML 250 ML IV SCH (16:00)
[2018-11-21] MEDS: FAMOTIDINE 20 MG/2 ML VIAL IVP SCH (20:59)
[2018-11-21] MEDS ORDERED: CHLORHEXIDINE 0.12% 15 ML MOUTHWASH. MM SCH (21:00)
[2018-11-22] VITALS (27 sets, daily range): BP systolic 75–135; BP diastolic 49–78
[2018-11-22] MEDS: PIPERACILLIN/TAZOBACTAM 3.375 GM in IV NORMAL SALINE 50ML 50 ML IV SCH ×5 (00:03→23:52)
--- NOTE | 2018-11-22 02:56 | CONS ---
DATE OF CONSULTATION: 11/21/2018 ATTENDING PHYSICIAN: Andreina Fine DO REASON FOR CONSULTATION: The patient seen in pulmonary consultation at the request of Dr. Fine for vent management and possible sepsis. HISTORY OF PRESENT ILLNESS: The patient is a 68-year-old that lives at home with his . When his was out of town, apparently he is in a intermediate unit. He was brought by ambulance for altered mental status, respiratory distress. He was in unconscious state, felt like he might have aspirated. His O2 sats were 50% upon arrival. He was initially bagged and eventually intubated. He is currently in the intensive care unit. He is on Levophed and his blood pressure mean is around 60. He is on IV propofol along with some IV antibiotics. No further history is obtained from the patient. There are no family members available. PAST MEDICAL HISTORY: Otherwise, obtained from reviewing the previous records. He was actually here on 11/10/2018 and discharged on the for aspiration pneumonia. The patient has a prior history of traumatic brain injury, suicide attempts in the past, emphysema, post-traumatic stress syndrome, aortic aneurysm, COPD, dementia, depression, diabetes, gastroesophageal reflux, kidney stone. He has a PEG in place. PAST SURGICAL HISTORY: Status post PEG tube placement. SOCIAL HISTORY: I believe he [facility] a [facility] now. ALLERGIES: LISTED TO LEVAQUIN. HE IS ALSO ALLERGIC TO CYCLOBENZAPRINE, IBUPROFEN, KETOROLAC, MEPERIDINE, OXYCODONE AND PROPOXYPHENE. REVIEW OF SYSTEMS: Unobtainable secondary to the patient's condition. PHYSICAL EXAMINATION: GENERAL: The patient was in the intensive care unit, once again receiving pressors. VITAL SIGNS: His T-max was 98.8. HEENT: Eyes, the sclerae were nonicteric. NECK: Jugular venous distention could not be assessed secondary to body habitus. CHEST: Full expansion. LUNGS: Crackles throughout both lung rucker. CARDIOVASCULAR: Regular rate and rhythm with S1, S2, no S3. ABDOMEN: PEG in place. It was tender with the patient kind of retracted with deep palpation. EXTREMITIES: No clubbing, cyanosis. Minimal edema. NEUROLOGIC: The patient was sedated. LABORATORY DATA: Labs were reviewed. White count was elevated at 14,000. Arterial blood gas; pH of 7.54, PaCO2 of 32, pO2 of 132. Electrolytes were normal. BUN was normal. Creatinine was normal. Lactic acid level was elevated with decrease to 2.4 upon repeat. Troponin level was elevated. BNP was elevated. Albumin was low. Lipase was 59. AST and ALT were normal. INR was 1.1. UA was noted. He did have 20-40 wbc's. Chest x-ray was reviewed. There are infiltrates bibasilar. Right hemidiaphragm is elevated. There was left basilar consolidation. IMPRESSION: 1. Acute respiratory failure, multifactorial. 2. Aspiration pneumonia. 3. Suspect gram-negative, possibly gram-positive and anaerobes. 4. Septic shock. 5. Underlying dementia and depression. 6. Type 2 diabetes. 7. Gastroesophageal reflux. 8. Status post PEG tube placement in the past. 9. Multiple other comorbidities as indicated above. 10. Elevated troponin. PLAN: 1. Continue current pressors. Considering the patient's low blood pressure, we will discontinue propofol and initiate Versed. 2. Continue coverage for both gram-positive and gram-negative organisms. 3. Sedate as needed. 4. IV fluids. 5. NG to intermittent suction. 6. If the patient continues to elicit pain upon abdominal exam, we will proceed with CT abdomen and pelvis. 7. Consult Cardiology. I do appreciate the privilege in sharing the patient's care. JERI VAZQUEZ MD DR: SHALINI/darlene JOB#: [id number] / [id number]
--- NOTE | 2018-11-22 03:04 | CONS ---
DATE OF CONSULTATION: 11/21/2018 ROOM: ICU 5. REQUESTING PHYSICIAN: Livia Nielsen M.D. REASON FOR CONSULTATION: Sepsis. HISTORY OF PRESENT ILLNESS: The patient is a 68-year-old gentleman with a history of traumatic brain injury from a suicidal attempt. He is a care home resident. He was admitted to [facility] in October, approximately 11/10/2018, for aspiration pneumonia, was discharged approximately the 11/15 on Zyvox. He was then brought back to the Emergency Room on 11/20 secondary to dyspnea and respiratory distress. According to the chart, he had O2 sat of 50 and was apparently in some respiratory distress and there is questionable altered mental status. He required bagging and suctioning of his airway. He has since been intubated. He has been afebrile; however, his blood pressure did drop down to 47/35. He has not been placed on Levophed. He has started to receive vancomycin as well as Zosyn. On arrival, his white blood cell count was 14.6. Urinalysis had a few squamous cells, 0 bacteria, trace leukocyte esterase, nitrite was negative. His troponin was elevated at 0.642. Lactic acid was elevated at 3.3 with a repeat of 2.4. He has undergone chest x-ray, showed his left basilar opacification may represent atelectasis without significant change. He then underwent KUB this morning for positioning of the NG tube, showed small pleural effusion with left lower lobe infiltrate. Currently, he is intubated, unable to provide any past medical history, history of present illness or review of systems. For past medical history, social history and allergies, please see my partner's dictation, Dr. Walls, on 11/11/2018. FAMILY HISTORY: Noncontributory. REVIEW OF SYSTEMS: Unobtainable. CURRENT MEDICATIONS: Include fentanyl, Levophed, Zosyn, propofol, vancomycin, Lovenox, amantadine and Pepcid. PHYSICAL EXAMINATION: VITAL SIGNS: He is afebrile, temperature currently 98, pulse 72, respirations 20, blood pressure 99/56 and satting 100% on ventilator. He is on 15 liters of oxygen. CONSTITUTIONAL: He is intubated and sedated. HEENT: Pupils are equal and reactive. Normal conjunctivae. NECK: Supple. LUNGS: Decreased in the bases. HEART: S1, S2. ABDOMEN: Soft and nontender. No apparent guarding. PEG tube without signs of any complications. Molina catheter clean. EXTREMITIES: Without clubbing or cyanosis. No gross edema. SKIN: Warm without generalized rash. IV sites are clean. LABORATORY VALUES: White count recently 14.6 on arrival, hemoglobin 11.5 and platelets are 222. Segs were 97. Creatinine was 0.9 and glucose 182. Normal liver function study tests. Troponin of 0.642. Lactic acid has improved to 2.4. Urinalysis reviewed in the history of present illness. Previous MRSA screen on 11/11 negative. RADIOLOGY: Reviewed in history of present illness. IMPRESSION: 1. Sepsis, present on admission on 11/20. 2. Acute respiratory failure, intubated. 3. Leukocytosis. 4. Elevated troponin. 5. LEVOFLOXACIN ALLERGY. Uncertain what happens when this is taken. RECOMMENDATIONS: Blood cultures were ordered. Agree with the vancomycin and Zosyn for now. Follow up labs and cultures. Chart was reviewed. Poor prognosis. Discussed with Dr. Nielsen. Thank you for allowing me to participate in the patient's care. Should you have any questions, please do not hesitate to contact me. JAZIEL MONSALVE MD DR: TODD/darlene JOB#: [id number] / [id number]
[2018-11-22] MEDS: IV NORMAL SALINE 1000ML BAG 1,000 ML IV SCH ×3 (03:43→23:52)
[2018-11-22] MEDS: VANCOMYCIN 1.25 GM in IV NORMAL SALINE 250ML 250 ML IV SCH (03:44)
[2018-11-22 07:52] LABS: CALCIUM 7.3 mg/dL (8.5-10.1); CREATININE 0.6 mg/dL (0.7-1.3); GFR 133.6; POTASSIUM 3.3 mmol/L (3.5-5.1)
[2018-11-22 08:10] LABS: BASO # 0.1 x10^3/uL (0.0-0.2); BASO % 1 % (0-3); EOS % 1 % (0-3); HEMOGLOBIN 10.6 g/dL (13.0-17.5); LYMPH # 0.9 x10^3/uL (1.0-4.8); LYMPH % 17 % (24-48); MEAN CORPUSCULAR HEMOGLOBIN 35 pg (25-35); MEAN CORPUSCULAR HGB CONC 34 g/dL (31-37); MEAN CORPUSCULAR VOLUME 101 fL (79-100); MONO # 0.3 x10^3/uL (0.0-1.1); MONO % 7 % (0-9); NEUT # 3.8 x10^3/uL (1.8-7.7); NEUT % 75 % (31-73); PLATELET COUNT 191 x10^3/uL (140-400); RED BLOOD COUNT 3.08 x10^6/uL (4.30-5.70); RED CELL DISTRIBUTION WIDTH 13.6 % (11.5-14.5); WHITE BLOOD COUNT 5.1 x10^3/uL (4.0-11.0)
[2018-11-22] MEDS ORDERED: MUPIROCIN 2 % TOPICAL CREAM 30GM TUBE. TP PRN (08:45)
[2018-11-22] MEDS ORDERED: ALBUTEROL SULFATE 2.5 MG/3 ML NEBU. NEB PRN (08:45)
[2018-11-22] MEDS: MIDAZOLAM 100mg/100ml NS BAG 100 ML IV PRN (08:55)
[2018-11-22 08:59] LABS: BASE EXCESS ABG -2 mmol/L (-3-3); HCO3 ABG 23 mmol/L (21-28); PCO2 ABG 38 mmHg (35-46); PO2 ABG 106 mmHg (65-108); SAT O2 ABG 97 % (92-99)
[2018-11-22] MEDS ORDERED: POTASSIUM BICARB 20 MEQ EFFERVESCENT TABLET. PEG ONE (09:00)
[2018-11-22] MEDS ORDERED: POLYVINYL ALCOHOL 1.4% OPHTH SOLUTION 15ML BOTTLE. OU PRN (09:00)
--- NOTE | 2018-11-22 09:00 | PDOC ---
LILLY WILLIAM [employer] 11/22/18 0900: CARDIO Progress Notes Date and Time Date of Service 11/22/2018 Time of Evaluation 0830 Subjective Subjective: Other (intubated) Vitals Vitals Vital Signs Date Time Temp Pulse Resp B/P (MAP) Pulse Ox O2 Delivery O2 Flow Rate FiO2 11/22/18 08:00 91 14 122/70 (87) 100 Ventilator 11/22/18 07:00 97.6 97.6 11/21/18 16:03 15.0 Weight Weight [ ] Input and Output Intake and Output Intake and Output 11/22/18 06:59 Intake Total 3215 ml Output Total 1370 ml Balance 1845 ml Intake Oral 0 ml IV Total 3215 ml Output Urine Total 1370 ml Laboratory Labs Laboratory Tests Test 11/22/18 04:00 White Blood Count 5.1 x10^3/uL (4.0-11.0) Red Blood Count 3.08 x10^6/uL (4.30-5.70) Hemoglobin 10.6 g/dL (13.0-17.5) Hematocrit 31.0 % (39.0-53.0) Mean Corpuscular Volume 101 fL (79-100) Mean Corpuscular Hemoglobin 35 pg (25-35) Mean Corpuscular Hemoglobin Concent 34 g/dL (31-37) Red Cell Distribution Width 13.6 % (11.5-14.5) Platelet Count 191 x10^3/uL (140-400) Neutrophils (%) (Auto) 75 % (31-73) Lymphocytes (%) (Auto) 17 % (24-48) Monocytes (%) (Auto) 7 % (0-9) Eosinophils (%) (Auto) 1 % (0-3) Basophils (%) (Auto) 1 % (0-3) Neutrophils # (Auto) 3.8 x10^3/uL (1.8-7.7) Lymphocytes # (Auto) 0.9 x10^3/uL (1.0-4.8) Monocytes # (Auto) 0.3 x10^3/uL (0.0-1.1) Eosinophils # (Auto) 0.0 x10^3/uL (0.0-0.7) Basophils # (Auto) 0.1 x10^3/uL (0.0-0.2) Sodium Level 146 mmol/L (136-145) Potassium Level 3.3 mmol/L (3.5-5.1) Chloride Level 112 mmol/L (98-107) Carbon Dioxide Level 27 mmol/L (21-32) Anion Gap 7 (6-14) Blood Urea Nitrogen 17 mg/dL (8-26) Creatinine 0.6 mg/dL (0.7-1.3) Estimated GFR (Cockcroft-Gault) 133.6 Glucose Level 85 mg/dL (70-99) Calcium Level 7.3 mg/dL (8.5-10.1) Microbiology Micro Microbiology 11/20/18 Blood Culture - Preliminary, Resulted NO GROWTH AFTER 1 DAY Physical Exam HEENT: Neck Supple W Full Motion Chest: Symmetric LUNGS: Other (diminished; intubated with vent) Heart: irregularly irregular (AFIB rate controlled) Abdomen: Other (soft) Extremities: No Edema Neurology: other (sedated) Assessment Assessment 1. Acute respiratory failure: multifactorial. intubated 2. Aspiration PNA; as per ID 3. Septic shock; BP better 4. Elevated troponin; most probably type II, demand ischemia. Recent echo with preserved LV systolic function 5. AFIB with RVR; refractory. rate now controlled 6. Hypomagnesemia; replaced 7. Hx of TBI/anoxic brain injury 8. Debility/dysphagia; s/p G-tube Recommendations 1. Dig IV PRN 2. Will place on BB once off levophed pending BP trend. 3. Start on eliquis for stroke prevention. Replace K. 4. Follow pulmonary recommendation 5. Supportive care. KITTY MENDOZA MD 11/23/18 1236: CARDIO Progress Notes Assessment Assessment Patient seen and examined 11/22/18. Agree with [employer]'s assessment and plan. Atrial fibrillation rate better controlled Start eliquis for stroke prophylaxis Slight troponin elevation demand ischemia Continue vent management per pulmonary team and treatment of sepsis/aspiration pneumonia per ID LILLY WILLIAM APRN Nov 22, 2018 09:00 KITTY MENDOZA MD Nov 23, 2018 12:36
--- NOTE | 2018-11-22 09:03 | PDOC ---
Infectious Disease Note Subjective Subjective Remains orally intubated, satting 100% on FiO2 40% Sedated Hypotensive - on Levophed No fevers last 24 hours ROS ROS unobtainable Vital Sign Vital Signs Vital Signs Date Time Temp Pulse Resp B/P (MAP) Pulse Ox O2 Delivery O2 Flow Rate FiO2 11/22/18 08:00 91 14 122/70 (87) 100 Ventilator 11/22/18 07:00 97.6 97.6 11/21/18 16:03 15.0 Physical Exam PHYSICAL EXAM GENERAL: Sedated and orally intubated, mitts HEENT: Pupils are equal and reactive. ETT, OGT NECK: Supple. LUNGS: Decreased in the bases. HEART: S1, S2, irregular ABDOMEN: Soft, no apparent guarding. PEG tube without signs of any complications. : Molina catheter clean. EXTREMITIES: Without clubbing or cyanosis. No gross edema. SCDs SKIN: Warm without generalized rash. [employer]AP G[employer]OX PERSON: Unresponsive/sedated RIJ - clean Labs Lab Laboratory Tests Test 11/22/18 04:00 White Blood Count 5.1 x10^3/uL (4.0-11.0) Red Blood Count 3.08 x10^6/uL (4.30-5.70) Hemoglobin 10.6 g/dL (13.0-17.5) Hematocrit 31.0 % (39.0-53.0) Mean Corpuscular Volume 101 fL (79-100) Mean Corpuscular Hemoglobin 35 pg (25-35) Mean Corpuscular Hemoglobin Concent 34 g/dL (31-37) Red Cell Distribution Width 13.6 % (11.5-14.5) Platelet Count 191 x10^3/uL (140-400) Neutrophils (%) (Auto) 75 % (31-73) Lymphocytes (%) (Auto) 17 % (24-48) Monocytes (%) (Auto) 7 % (0-9) Eosinophils (%) (Auto) 1 % (0-3) Basophils (%) (Auto) 1 % (0-3) Neutrophils # (Auto) 3.8 x10^3/uL (1.8-7.7) Lymphocytes # (Auto) 0.9 x10^3/uL (1.0-4.8) Monocytes # (Auto) 0.3 x10^3/uL (0.0-1.1) Eosinophils # (Auto) 0.0 x10^3/uL (0.0-0.7) Basophils # (Auto) 0.1 x10^3/uL (0.0-0.2) Sodium Level 146 mmol/L (136-145) Potassium Level 3.3 mmol/L (3.5-5.1) Chloride Level 112 mmol/L (98-107) Carbon Dioxide Level 27 mmol/L (21-32) Anion Gap 7 (6-14) Blood Urea Nitrogen 17 mg/dL (8-26) Creatinine 0.6 mg/dL (0.7-1.3) Estimated GFR (Cockcroft-Gault) 133.6 Glucose Level 85 mg/dL (70-99) Calcium Level 7.3 mg/dL (8.5-10.1) Micro Microbiology 11/20/18 Blood Culture - Preliminary, Resulted NO GROWTH AFTER 1 DAY Objective Assessment Sepsis, present on admission on 11/20. Acute respiratory failure, intubated. Leukocytosis - better Elevated troponin. LEVOFLOXACIN ALLERGY. Uncertain what happens when this is taken. A-fib Plan Plan of Care Continue Vanc and Zosyn for now. Vanc per pharmacy to manage Monitor renal function closely F/u labs and cults Poor prognosis Critically ill D/w nursing Attending Co-Sign Attending Co-Sign The patient was seen and interviewed as well as examined at the bedside. The chart was reviewed. The case was discussed. Agree with the plan of care. HÉCTOR BHATIA APRN Nov 22, 2018 09:03 JAZIEL MONSALVE MD Nov 22, 2018 12:41
[2018-11-22] MEDS: ASPIRIN CHEWABLE 81 MG TABLET. PO SCH (10:16)
[2018-11-22] MEDS: APIXABAN 5 MG TABLET. PO SCH ×2 (10:16→20:43)
[2018-11-22] MEDS: FAMOTIDINE 20 MG/2 ML VIAL IVP SCH ×2 (10:16→20:43)
[2018-11-22] MEDS: VANCOMYCIN PER PHARMACY MC PRN ×2 (10:18→16:18)
[2018-11-22 10:42] LABS: FIO2 ABG 40
--- NOTE | 2018-11-22 10:45 | PDOC ---
PULMONARY PROGRESS NOTES Subjective remains intubated/ sedated low dose levo Vitals Vital Signs Date Time Temp Pulse Resp B/P (MAP) Pulse Ox O2 Delivery O2 Flow Rate FiO2 11/22/18 09:00 107 14 111/57 (75) 100 Ventilator 11/22/18 07:00 97.6 97.6 11/21/18 16:03 15.0 Lungs: Other (decrease bs) Cardiovascular: S1 Abdomen: Soft, Other (mildly tender) Extremities: Other (trace edema) Skin: Warm Labs Laboratory Tests Test 11/20/18 23:02 11/20/18 23:10 11/20/18 23:15 11/21/18 01:55 Urine Collection Type Unknown Urine Color Yellow Urine Clarity Clear Urine pH 6.0 Urine Specific [place] 1.020 Urine Protein 30 mg/dL (NEG-TRACE) Urine Glucose (UA) Negative mg/dL (NEG) Urine Ketones (Stick) Negative mg/dL (NEG) Urine Blood Small (NEG) Urine Nitrite Negative (NEG) Urine Bilirubin Negative (NEG) Urine Urobilinogen Dipstick 1.0 mg/dL (0.2 mg/dL) Urine Leukocyte Esterase Trace (NEG) Urine RBC 1-2 /HPF (0-2) Urine WBC 20-40 /HPF (0-4) Urine Squamous Epithelial Cells Few /LPF Urine Amorphous Sediment Present /HPF Urine Bacteria 0 /HPF (0-FEW) Urine Hyaline Casts Moderate /HPF Urine Granular Casts Few /HPF Urine Mucus Marked /LPF White Blood Count 14.6 x10^3/uL (4.0-11.0) Red Blood Count 3.43 x10^6/uL (4.30-5.70) Hemoglobin 11.5 g/dL (13.0-17.5) Hematocrit 34.6 % (39.0-53.0) Mean Corpuscular Volume 101 fL (79-100) Mean Corpuscular Hemoglobin 33 pg (25-35) Mean Corpuscular Hemoglobin Concent 33 g/dL (31-37) Red Cell Distribution Width 13.0 % (11.5-14.5) Platelet Count 222 x10^3/uL (140-400) Neutrophils (%) (Auto) 93 % (31-73) Lymphocytes (%) (Auto) 1 % (24-48) Monocytes (%) (Auto) 4 % (0-9) Eosinophils (%) (Auto) 0 % (0-3) Basophils (%) (Auto) 2 % (0-3) Neutrophils # (Auto) 13.6 x10^3/uL (1.8-7.7) Lymphocytes # (Auto) 0.2 x10^3/uL (1.0-4.8) Monocytes # (Auto) 0.6 x10^3/uL (0.0-1.1) Eosinophils # (Auto) 0.0 x10^3/uL (0.0-0.7) Basophils # (Auto) 0.2 x10^3/uL (0.0-0.2) Segmented Neutrophils % 97 % (35-66) Lymphocytes % 1 % (24-48) Monocytes % 2 % (0-10) Platelet Estimate Adequate (ADEQUATE) Prothrombin Time 16.0 SEC (11.7-14.0) Prothromb Time International Ratio 1.3 (0.8-1.1) Sodium Level 145 mmol/L (136-145) Potassium Level 3.8 mmol/L (3.5-5.1) Chloride Level 107 mmol/L (98-107) Carbon Dioxide Level 31 mmol/L (21-32) Anion Gap 7 (6-14) Blood Urea Nitrogen 24 mg/dL (8-26) Creatinine 0.9 mg/dL (0.7-1.3) Estimated GFR (Cockcroft-Gault) 83.7 BUN/Creatinine Ratio 27 (6-20) Glucose Level 182 mg/dL (70-99) Lactic Acid Level 3.3 mmol/L (0.4-2.0) 2.4 mmol/L (0.4-2.0) Calcium Level 8.1 mg/dL (8.5-10.1) Magnesium Level 1.7 mg/dL (1.8-2.4) Total Bilirubin 0.6 mg/dL (0.2-1.0) Aspartate Amino Transf (AST/SGOT) 29 U/L (15-37) Alanine Aminotransferase (ALT/SGPT) 24 U/L (16-63) Alkaline Phosphatase 54 U/L (46-116) Troponin I Quantitative 0.642 ng/mL (0.000-0.055) HT-Vru-D-Type Natriuretic Peptide 1016 pg/mL (0-124) Total Protein 5.9 g/dL (6.4-8.2) Albumin 2.2 g/dL (3.4-5.0) Albumin/Globulin Ratio 0.6 (1.0-1.7) Lipase 59 U/L (73-393) O2 Saturation 99 % (92-99) Arterial Blood pH 7.42 (7.35-7.45) Arterial Blood pCO2 at Patient Temp 44 mmHg (35-46) Arterial Blood pO2 at Patient Temp 172 mmHg (65-108) Arterial Blood HCO3 28 mmol/L (21-28) Arterial Blood Base Excess 3 mmol/L (-3-3) FiO2 100 Test 11/21/18 04:00 11/21/18 08:45 11/22/18 04:00 Nasal Screen MRSA (PCR) Negative (Negative) O2 Saturation 99 % (92-99) Arterial Blood pH 7.54 (7.35-7.45) Arterial Blood pCO2 at Patient Temp 32 mmHg (35-46) Arterial Blood pO2 at Patient Temp 135 mmHg (65-108) Arterial Blood HCO3 27 mmol/L (21-28) Arterial Blood Base Excess 5 mmol/L (-3-3) FiO2 60 White Blood Count 5.1 x10^3/uL (4.0-11.0) Red Blood Count 3.08 x10^6/uL (4.30-5.70) Hemoglobin 10.6 g/dL (13.0-17.5) Hematocrit 31.0 % (39.0-53.0) Mean Corpuscular Volume 101 fL (79-100) Mean Corpuscular Hemoglobin 35 pg (25-35) Mean Corpuscular Hemoglobin Concent 34 g/dL (31-37) Red Cell Distribution Width 13.6 % (11.5-14.5) Platelet Count 191 x10^3/uL (140-400) Neutrophils (%) (Auto) 75 % (31-73) Lymphocytes (%) (Auto) 17 % (24-48) Monocytes (%) (Auto) 7 % (0-9) Eosinophils (%) (Auto) 1 % (0-3) Basophils (%) (Auto) 1 % (0-3) Neutrophils # (Auto) 3.8 x10^3/uL (1.8-7.7) Lymphocytes # (Auto) 0.9 x10^3/uL (1.0-4.8) Monocytes # (Auto) 0.3 x10^3/uL (0.0-1.1) Eosinophils # (Auto) 0.0 x10^3/uL (0.0-0.7) Basophils # (Auto) 0.1 x10^3/uL (0.0-0.2) Sodium Level 146 mmol/L (136-145) Potassium Level 3.3 mmol/L (3.5-5.1) Chloride Level 112 mmol/L (98-107) Carbon Dioxide Level 27 mmol/L (21-32) Anion Gap 7 (6-14) Blood Urea Nitrogen 17 mg/dL (8-26) Creatinine 0.6 mg/dL (0.7-1.3) Estimated GFR (Cockcroft-Gault) 133.6 Glucose Level 85 mg/dL (70-99) Calcium Level 7.3 mg/dL (8.5-10.1) Laboratory Tests Test 11/22/18 04:00 White Blood Count 5.1 x10^3/uL (4.0-11.0) Red Blood Count 3.08 x10^6/uL (4.30-5.70) Hemoglobin 10.6 g/dL (13.0-17.5) Hematocrit 31.0 % (39.0-53.0) Mean Corpuscular Volume 101 fL (79-100) Mean Corpuscular Hemoglobin 35 pg (25-35) Mean Corpuscular Hemoglobin Concent 34 g/dL (31-37) Red Cell Distribution Width 13.6 % (11.5-14.5) Platelet Count 191 x10^3/uL (140-400) Neutrophils (%) (Auto) 75 % (31-73) Lymphocytes (%) (Auto) 17 % (24-48) Monocytes (%) (Auto) 7 % (0-9) Eosinophils (%) (Auto) 1 % (0-3) Basophils (%) (Auto) 1 % (0-3) Neutrophils # (Auto) 3.8 x10^3/uL (1.8-7.7) Lymphocytes # (Auto) 0.9 x10^3/uL (1.0-4.8) Monocytes # (Auto) 0.3 x10^3/uL (0.0-1.1) Eosinophils # (Auto) 0.0 x10^3/uL (0.0-0.7) Basophils # (Auto) 0.1 x10^3/uL (0.0-0.2) Sodium Level 146 mmol/L (136-145) Potassium Level 3.3 mmol/L (3.5-5.1) Chloride Level 112 mmol/L (98-107) Carbon Dioxide Level 27 mmol/L (21-32) Anion Gap 7 (6-14) Blood Urea Nitrogen 17 mg/dL (8-26) Creatinine 0.6 mg/dL (0.7-1.3) Estimated GFR (Cockcroft-Gault) 133.6 Glucose Level 85 mg/dL (70-99) Calcium Level 7.3 mg/dL (8.5-10.1) Medications Active Scripts Medications Dose Route/Sig Max Daily Dose Days Date Category Tramadol Hcl 50 Mg Tablet 50 Mg PO PRN Q6HRS PRN 11/15/18 Rx Zyvox (Linezolid) 600 Mg Tablet 600 Mg PO BID 11/15/18 Rx Mupirocin Cream (Mupirocin) 15 Gm Cream..g. 1 Justina TP TID PRN 11/10/18 Reported Guaifenesin 100 Mg/5 Ml Liquid 100 Mg PO Q8HRS PRN 11/10/18 Reported Fluticasone Propionate Nasal [place] (Fluticasone Propionate) 16 Gm [place].susp 2 [place] NS DAILY 11/10/18 Reported Claritin (Loratadine) 10 Mg Capsule 10 Mg PO DAILY PRN 11/10/18 Reported Stomach Relief (Bismuth Subsalicylate) 262 Mg/15 Ml Oral.susp 262 Mg PEG Q6HRS PRN 11/10/18 Reported Artificial Tears Eye Drops (Dextran 70/Hypromellose) 15 Ml Drops 1 Drop EACHEYE QID PRN 11/10/18 Reported Albuterol Sulfate Neb Soln (Albuterol Sulfate) 2.5 Mg/3 Ml Vial.neb 2.5 Mg NEB Q8HRS PRN 11/10/18 Reported Proair Hfa Inhaler (Albuterol Sulfate) 8.5 Gm Hfa.aer.ad 1 Puff INH PRN Q6HRS PRN 08/08/16 Rx Azithromycin Tablet (Azithromycin) 250 Mg Tablet 1 Pkg PO UD 08/08/16 Rx Impression . 1. Acute respiratory failure, multifactorial. 2. Aspiration pneumonia. 3. Suspect gram-negative, possibly gram-positive and anaerobes. 4. Septic shock. 5. Underlying dementia and depression. 6. Type 2 diabetes. 7. Gastroesophageal reflux. 8. Status post PEG tube placement in the past. 9. Multiple other comorbidities as indicated above. 10. Elevated troponin. 11.h/o TBI, with progressive dementia Plan . 1. AC mode. will try off sedation 2. Continue coverage for both gram-positive and gram-negative organisms. 3. Assess for MS 4. IV fluids as needed. wean off pressor 5. NG to intermittent suction. 6. patient continues to elicit pain upon abdominal exam, we will proceed with CT abdomen and pelvis. 7. Consulted Cardiology. d/w in detail/ d/w RIKA HUITRON MD Nov 22, 2018 10:45
[2018-11-22] MEDS: fentaNYL PF VIAL 100 MCG/2 ML VIAL IV PRN (11:47)
--- NOTE | 2018-11-22 12:37 | PDOC ---
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 History of Present Illness History of Present Illness 11/22/18 Pt seen and examined in ICU Pt is intubated Sedated with Verced Vent settings: AC/14/450/40% with 5 of PEP Satting at 100% ABG pH 7.39 DW RN Vitals/I&O Vitals/I&O: Vital Signs Date Time Temp Pulse Resp B/P (MAP) Pulse Ox O2 Delivery O2 Flow Rate FiO2 11/22/18 12:00 97.7 96 14 81/59 (66) 100 Ventilator 97.7 11/22/18 11:47 15.0 I & O 11/21/18 11/21/18 11/22/18 15:00 23:00 07:00 Intake Total 2678 ml 537 ml Output Total 425 ml 575 ml 395 ml Balance -425 ml 2103 ml 142 ml Physical Exam Physical Exam: GENERAL: Sedated and orally intubated, mitts HEENT: Pupils are equal and reactive. ETT, OGT NECK: Supple. LUNGS: Decreased in the bases. HEART: S1, S2, irregular ABDOMEN: Soft, no apparent guarding. PEG tube without signs of any complications. : Molina catheter clean. EXTREMITIES: Without clubbing or cyanosis. No gross edema. SCDs SKIN: Warm without generalized rash. CONTINUITY DIRECTOR: Unresponsive/sedated RIJ - clean General: No acute distress, Other (pt intubated) Heart: Regular rate, Normal S1, Normal S2 Lungs: Other (decrease bs) Abdomen: Normal bowel sounds, No masses Extremities: No cyanosis, No edema Skin: No rashes, No significant lesion Labs Labs: Laboratory Tests Test 11/22/18 04:00 11/22/18 07:45 White Blood Count 5.1 x10^3/uL (4.0-11.0) Red Blood Count 3.08 x10^6/uL (4.30-5.70) Hemoglobin 10.6 g/dL (13.0-17.5) Hematocrit 31.0 % (39.0-53.0) Mean Corpuscular Volume 101 fL (79-100) Mean Corpuscular Hemoglobin 35 pg (25-35) Mean Corpuscular Hemoglobin Concent 34 g/dL (31-37) Red Cell Distribution Width 13.6 % (11.5-14.5) Platelet Count 191 x10^3/uL (140-400) Neutrophils (%) (Auto) 75 % (31-73) Lymphocytes (%) (Auto) 17 % (24-48) Monocytes (%) (Auto) 7 % (0-9) Eosinophils (%) (Auto) 1 % (0-3) Basophils (%) (Auto) 1 % (0-3) Neutrophils # (Auto) 3.8 x10^3/uL (1.8-7.7) Lymphocytes # (Auto) 0.9 x10^3/uL (1.0-4.8) Monocytes # (Auto) 0.3 x10^3/uL (0.0-1.1) Eosinophils # (Auto) 0.0 x10^3/uL (0.0-0.7) Basophils # (Auto) 0.1 x10^3/uL (0.0-0.2) Sodium Level 146 mmol/L (136-145) Potassium Level 3.3 mmol/L (3.5-5.1) Chloride Level 112 mmol/L (98-107) Carbon Dioxide Level 27 mmol/L (21-32) Anion Gap 7 (6-14) Blood Urea Nitrogen 17 mg/dL (8-26) Creatinine 0.6 mg/dL (0.7-1.3) Estimated GFR (Cockcroft-Gault) 133.6 Glucose Level 85 mg/dL (70-99) Calcium Level 7.3 mg/dL (8.5-10.1) O2 Saturation 97 % (92-99) Arterial Blood pH 7.39 (7.35-7.45) Arterial Blood pCO2 at Patient Temp 38 mmHg (35-46) Arterial Blood pO2 at Patient Temp 106 mmHg (65-108) Arterial Blood HCO3 23 mmol/L (21-28) Arterial Blood Base Excess -2 mmol/L (-3-3) FiO2 40 Review of Systems Review of Systems: Unable to obtain Assessment and Plan Assessmemt and Plan Problems Medical Problems: (1) Acute respiratory failure Status: Acute (2) Aspiration pneumonia Status: Acute (3) Atrial fibrillation with RVR Status: Acute (4) COPD (chronic obstructive pulmonary disease) Status: Chronic (5) Hypomagnesemia Status: Acute (6) Sepsis Status: Acute (7) UTI (urinary tract infection) Status: Acute Assessment Sepsis Aspiration pneumonia COPD SOB Dementia Depression DM GERD Kidney stones 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 Medications: Current Medications Medications (Trade) Dose Ordered Sig/Zak Route PRN Reason Start Time Stop Time Status Last Admin Dose Admin Vancomycin HCl 1.25 gm/Sodium Chloride 250 ml @ 167 mls/hr Q12H IV 11/21/18 16:00 11/22/18 03:44 Chlorhexidine Gluconate (Peridex) 15 ml BID MM 11/21/18 21:00 11/22/18 08:49 DC 11/21/18 20:58 Famotidine (Pepcid Vial) 20 mg BID IVP 11/21/18 21:00 11/22/18 10:17 Aspirin (Children'S Aspirin) 81 mg DAILYWBKFT PO 11/21/18 16:00 11/22/18 10:17 Sodium Chloride 1,000 ml @ 100 mls/hr Q10H IV 11/22/18 03:00 11/22/18 03:43 Apixaban (Eliquis) 5 mg BID PO 11/22/18 09:00 11/22/18 10:17 Potassium Bicarbonate (Potassium Effervescent Tablet) 20 meq 1X ONCE PEG 11/22/18 09:00 11/22/18 09:01 DC 11/22/18 10:17 FADI BEARD III, DO Nov 22, 2018 12:37
--- NOTE | 2018-11-22 13:17 | RAD ---
EXAM: Abdomen and pelvis CT without intravenous contrast. HISTORY: Pain. TECHNIQUE: Computed tomographic images of the abdomen and pelvis were obtained without contrast. Multiplanar reformatting was performed. *One or more of the following individualized dose reduction techniques were utilized for this examination: 1. Automated exposure control. 2. Adjustment of the mA and/or kV according to patient size. 3. Use of iterative reconstruction technique. COMPARISON: None. FINDINGS: Evaluation of the lower thorax demonstrates small bilateral pleural effusions and right greater than left lower lobe partial consolidation containing air bronchograms. There is cardiomegaly. There is coronary artery atherosclerosis. There is a catheter within the superior cavoatrial junction. There is a nasogastric tube within the stomach. There is a gastrostomy tube in expected position. There is bilateral gynecomastia. No hepatic lesion is seen. The gallbladder is surgically absent. The pancreas, spleen and adrenal glands are unremarkable. There is bilateral nephrolithiasis. There is renal cortical lobulation likely due to scarring. There is a 2.1 cm exophytic lesion along the posterior mid zone of the right kidney, the attenuation of which is greater than simple fluid. This may be a slightly hemorrhagic cyst. There is an infrarenal abdominal aortic aneurysm measuring 4.8 cm. There is nonspecific stranding throughout the root of the mesentery and within the retroperitoneum. There is aortobiiliac atherosclerosis. No pathologically enlarged lymph node is seen. There is ventral abdominal wall diastasis resulting in protrusion of peritoneal fat. There is a small supraumbilical hernia containing fat. There is colonic diverticulosis without evidence of diverticulitis. The bladder is nearly empty. There is a Molina catheter and small amount of gas within the bladder due to recent catheterization. There are degenerative changes involving the spine. There is no suspicious osseous lesion. IMPRESSION: 1. 4.8 cm infrarenal abdominal aortic aneurysm. There is nonspecific stranding within the retroperitoneum. However, there is no convincing aneurysm rupture. 2. Small bilateral pleural effusions with partial bilateral lower lobe consolidation. Follow-up to confirm resolution. 3. Bilateral nephrolithiasis. 4. 2.1 cm lesion along the posterior mid zone of the right kidney. This may be a complex cyst or solid lesion. Correlate with a renal sonogram. 5. Colonic diverticulosis. 6. Nasogastric tube and gastrostomy tube in expected position. 7. Small fat-containing supravesical hernia and ventral abdominal wall diastasis. 8. Bilateral gynecomastia. Electronically signed by: Madelin Harvey MD (11/22/2018 1:14 PM) [place] [id number]
[2018-11-22] MEDS ORDERED: METOPROLOL TARTRATE 5 MG/5 ML VIAL. IVP ONE (15:00)
--- NOTE | 2018-11-22 15:17 | NUR ---
SS following for discharge planning. SS reviewed pt chart. Pt is from home with spouse and is currently on the vent. No discharge needs noted at this time. SS will continue to follow for discharge planning.
[2018-11-22 16:03] LABS: VANC TR 20.5 mcg/mL (10.0-20.0)
--- NOTE | 2018-11-22 16:18 | NUR ---
Pharmacy Vancomycin Dosing Note S:Consulted to monitor and dose vancomycin started 11/21/18. O:POP ROQUE is a 68 year old M with Sepsis Pneumonia . Height: 6 feet, 1 inches Weight: 87.596883 kg [place] Body Weight: 79.90 Adjusted Body Weight: 81.38 Dosing Weight: Actual Other Antibiotics: ZOSYN 3.375 GM Q6H LABS: Last BUN: 17 Last Creatinine: 0.6 Creatinine Clearance: 81 mL/min Last WBC: 5.1 Last Procalcitonin: Tmax (past 24 hours): 98.6 Microbiology: BLOOD CX ARE NGTD I/O: 3215/1370 Drug Levels: Last Trough level: 20.5 on 11/22/18 at 1540 Last dose given 11/21/18 at 0400 Vancomycin Dosing: Loading Dose: 2000 mg x1 Dosing Weight: Actual Target Trough: 15-20 A: Based on: TROUGH=20.5 P: 1. Change Vancomycin 1000 mg IV q12h 2. Follow up Trough level on 11/24/18 at 0630 3. Pharmacy will continue to monitor, follow and adjust therapy as needed. JACKELINE MELCHOR, [facility], 11/22/18 0524
[2018-11-22] MEDS: ALBUTEROL SULFATE 2.5 MG/3 ML NEBU. INH PRN (16:21)
[2018-11-22] MEDS ORDERED: DIGOXIN IV 500 MCG/2 ML AMPUL. IV PRN (16:45)
--- NOTE | 2018-11-22 17:30 | RAD ---
PORTABLE CHEST 1V History: Respiratory failure Comparison: November 20, 2018 Findings: Interval placement enteric tube with tip below the diaphragm beyond the image. Stable right IJ central line and endotracheal tube. Bilateral layering pleural effusions, unchanged. Patchy left basilar opacity, unchanged. Stable heart size. No pneumothorax. Impression: 1. Interval placement enteric tube with tip below the diaphragm beyond the image. 2. Bilateral layering pleural effusions, unchanged. 3. Left basilar opacity, unchanged. Electronically signed by: Raul Leon DO (11/22/2018 5:27 PM) [facility]
[2018-11-22] MEDS: VANCOMYCIN 1 GM in IV NORMAL SALINE 250ML 250 ML IV SCH (20:43)
[2018-11-23] VITALS (24 sets, daily range): BP systolic 79–133; BP diastolic 47–76
[2018-11-23] MEDS: PIPERACILLIN/TAZOBACTAM 3.375 GM in IV NORMAL SALINE 50ML 50 ML IV SCH ×3 (05:26→18:32)
[2018-11-23 05:53] LABS: BASO # 0.1 x10^3/uL (0.0-0.2); BASO % 1 % (0-3); EOS # 0.1 x10^3/uL (0.0-0.7); EOS % 3 % (0-3); HEMATOCRIT 30.9 % (39.0-53.0); HEMOGLOBIN 10.6 g/dL (13.0-17.5); LYMPH # 0.7 x10^3/uL (1.0-4.8); LYMPH % 14 % (24-48); MEAN CORPUSCULAR HEMOGLOBIN 34 pg (25-35); MEAN CORPUSCULAR HGB CONC 34 g/dL (31-37); MEAN CORPUSCULAR VOLUME 100 fL (79-100); MONO # 0.4 x10^3/uL (0.0-1.1); MONO % 7 % (0-9); NEUT # 3.9 x10^3/uL (1.8-7.7); NEUT % 75 % (31-73); PLATELET COUNT 214 x10^3/uL (140-400); RED CELL DISTRIBUTION WIDTH 13.3 % (11.5-14.5); WHITE BLOOD COUNT 5.2 x10^3/uL (4.0-11.0)
[2018-11-23 06:27] LABS: CALCIUM 7.6 mg/dL (8.5-10.1); CREATININE 0.6 mg/dL (0.7-1.3); GFR 133.6; POTASSIUM 3.5 mmol/L (3.5-5.1)
[2018-11-23] MEDS ORDERED: IV DEXTROSE 5% 250 ML IV ONE ×5 (08:26→08:45)
[2018-11-23] MEDS: ALBUTEROL SULFATE 2.5 MG/3 ML NEBU. INH PRN ×3 (08:37→15:54)
[2018-11-23] MEDS ORDERED: IV DEXTROSE 5% 500 ML IV ONE (08:45)
[2018-11-23 08:58] LABS: BASE EXCESS ABG -3 mmol/L (-3-3); HCO3 ABG 21 mmol/L (21-28); PCO2 ABG 35 mmHg (35-46); PO2 ABG 118 mmHg (65-108); SAT O2 ABG 98 % (92-99)
[2018-11-23 09:02] LABS: FIO2 ABG 40
[2018-11-23] MEDS: VANCOMYCIN 1 GM in IV NORMAL SALINE 250ML 250 ML IV SCH ×2 (09:05→21:05)
[2018-11-23] MEDS: APIXABAN 5 MG TABLET. PO SCH ×2 (09:12→21:06)
[2018-11-23] MEDS: ASPIRIN CHEWABLE 81 MG TABLET. PO SCH (09:12)
[2018-11-23] MEDS: FAMOTIDINE 20 MG/2 ML VIAL IVP SCH ×2 (09:14→21:06)
--- NOTE | 2018-11-23 10:27 | PDOC ---
PULMONARY PROGRESS NOTES Subjective remains intubated/ off sedation off levo MS at baseline Vitals Vital Signs Date Time Temp Pulse Resp B/P (MAP) Pulse Ox O2 Delivery O2 Flow Rate FiO2 11/23/18 08:37 100 Ventilator 11/23/18 06:00 73 15 124/68 (86) 11/23/18 04:00 98.2 98.2 11/22/18 12:41 15.0 Lungs: Other (decrease bs) Cardiovascular: S1 Abdomen: Soft, Other (mildly tender) Extremities: Other (trace edema) Skin: Warm Labs Laboratory Tests Test 11/22/18 04:00 11/22/18 07:45 11/22/18 15:40 11/23/18 05:30 White Blood Count 5.1 x10^3/uL (4.0-11.0) Red Blood Count 3.08 x10^6/uL (4.30-5.70) Hemoglobin 10.6 g/dL (13.0-17.5) Hematocrit 31.0 % (39.0-53.0) Mean Corpuscular Volume 101 fL (79-100) Mean Corpuscular Hemoglobin 35 pg (25-35) Mean Corpuscular Hemoglobin Concent 34 g/dL (31-37) Red Cell Distribution Width 13.6 % (11.5-14.5) Platelet Count 191 x10^3/uL (140-400) Neutrophils (%) (Auto) 75 % (31-73) Lymphocytes (%) (Auto) 17 % (24-48) Monocytes (%) (Auto) 7 % (0-9) Eosinophils (%) (Auto) 1 % (0-3) Basophils (%) (Auto) 1 % (0-3) Neutrophils # (Auto) 3.8 x10^3/uL (1.8-7.7) Lymphocytes # (Auto) 0.9 x10^3/uL (1.0-4.8) Monocytes # (Auto) 0.3 x10^3/uL (0.0-1.1) Eosinophils # (Auto) 0.0 x10^3/uL (0.0-0.7) Basophils # (Auto) 0.1 x10^3/uL (0.0-0.2) Sodium Level 146 mmol/L (136-145) 145 mmol/L (136-145) Potassium Level 3.3 mmol/L (3.5-5.1) 3.5 mmol/L (3.5-5.1) Chloride Level 112 mmol/L (98-107) 110 mmol/L (98-107) Carbon Dioxide Level 27 mmol/L (21-32) 23 mmol/L (21-32) Anion Gap 7 (6-14) 12 (6-14) Blood Urea Nitrogen 17 mg/dL (8-26) 11 mg/dL (8-26) Creatinine 0.6 mg/dL (0.7-1.3) 0.6 mg/dL (0.7-1.3) Estimated GFR (Cockcroft-Gault) 133.6 133.6 Glucose Level 85 mg/dL (70-99) 58 mg/dL (70-99) Calcium Level 7.3 mg/dL (8.5-10.1) 7.6 mg/dL (8.5-10.1) O2 Saturation 97 % (92-99) Arterial Blood pH 7.39 (7.35-7.45) Arterial Blood pCO2 at Patient Temp 38 mmHg (35-46) Arterial Blood pO2 at Patient Temp 106 mmHg (65-108) Arterial Blood HCO3 23 mmol/L (21-28) Arterial Blood Base Excess -2 mmol/L (-3-3) FiO2 40 Vancomycin Level Trough 20.5 mcg/mL (10.0-20.0) Vancomycin Last Dose Date Unk Vancomycin Last Dose Time Unk Test 11/23/18 05:45 11/23/18 08:45 11/23/18 09:32 White Blood Count 5.2 x10^3/uL (4.0-11.0) Red Blood Count 3.10 x10^6/uL (4.30-5.70) Hemoglobin 10.6 g/dL (13.0-17.5) Hematocrit 30.9 % (39.0-53.0) Mean Corpuscular Volume 100 fL (79-100) Mean Corpuscular Hemoglobin 34 pg (25-35) Mean Corpuscular Hemoglobin Concent 34 g/dL (31-37) Red Cell Distribution Width 13.3 % (11.5-14.5) Platelet Count 214 x10^3/uL (140-400) Neutrophils (%) (Auto) 75 % (31-73) Lymphocytes (%) (Auto) 14 % (24-48) Monocytes (%) (Auto) 7 % (0-9) Eosinophils (%) (Auto) 3 % (0-3) Basophils (%) (Auto) 1 % (0-3) Neutrophils # (Auto) 3.9 x10^3/uL (1.8-7.7) Lymphocytes # (Auto) 0.7 x10^3/uL (1.0-4.8) Monocytes # (Auto) 0.4 x10^3/uL (0.0-1.1) Eosinophils # (Auto) 0.1 x10^3/uL (0.0-0.7) Basophils # (Auto) 0.1 x10^3/uL (0.0-0.2) O2 Saturation 98 % (92-99) Arterial Blood pH 7.40 (7.35-7.45) Arterial Blood pCO2 at Patient Temp 35 mmHg (35-46) Arterial Blood pO2 at Patient Temp 118 mmHg (65-108) Arterial Blood HCO3 21 mmol/L (21-28) Arterial Blood Base Excess -3 mmol/L (-3-3) FiO2 40 Glucose (Fingerstick) 118 mg/dL (70-99) Laboratory Tests Test 11/22/18 15:40 11/23/18 05:30 11/23/18 05:45 11/23/18 08:45 Vancomycin Level Trough 20.5 mcg/mL (10.0-20.0) Vancomycin Last Dose Date Unk Vancomycin Last Dose Time Unk Sodium Level 145 mmol/L (136-145) Potassium Level 3.5 mmol/L (3.5-5.1) Chloride Level 110 mmol/L (98-107) Carbon Dioxide Level 23 mmol/L (21-32) Anion Gap 12 (6-14) Blood Urea Nitrogen 11 mg/dL (8-26) Creatinine 0.6 mg/dL (0.7-1.3) Estimated GFR (Cockcroft-Gault) 133.6 Glucose Level 58 mg/dL (70-99) Calcium Level 7.6 mg/dL (8.5-10.1) White Blood Count 5.2 x10^3/uL (4.0-11.0) Red Blood Count 3.10 x10^6/uL (4.30-5.70) Hemoglobin 10.6 g/dL (13.0-17.5) Hematocrit 30.9 % (39.0-53.0) Mean Corpuscular Volume 100 fL (79-100) Mean Corpuscular Hemoglobin 34 pg (25-35) Mean Corpuscular Hemoglobin Concent 34 g/dL (31-37) Red Cell Distribution Width 13.3 % (11.5-14.5) Platelet Count 214 x10^3/uL (140-400) Neutrophils (%) (Auto) 75 % (31-73) Lymphocytes (%) (Auto) 14 % (24-48) Monocytes (%) (Auto) 7 % (0-9) Eosinophils (%) (Auto) 3 % (0-3) Basophils (%) (Auto) 1 % (0-3) Neutrophils # (Auto) 3.9 x10^3/uL (1.8-7.7) Lymphocytes # (Auto) 0.7 x10^3/uL (1.0-4.8) Monocytes # (Auto) 0.4 x10^3/uL (0.0-1.1) Eosinophils # (Auto) 0.1 x10^3/uL (0.0-0.7) Basophils # (Auto) 0.1 x10^3/uL (0.0-0.2) O2 Saturation 98 % (92-99) Arterial Blood pH 7.40 (7.35-7.45) Arterial Blood pCO2 at Patient Temp 35 mmHg (35-46) Arterial Blood pO2 at Patient Temp 118 mmHg (65-108) Arterial Blood HCO3 21 mmol/L (21-28) Arterial Blood Base Excess -3 mmol/L (-3-3) FiO2 40 Test 11/23/18 09:32 Glucose (Fingerstick) 118 mg/dL (70-99) Medications Active Scripts Medications Dose Route/Sig Max Daily Dose Days Date Category Tramadol Hcl 50 Mg Tablet 50 Mg PO PRN Q6HRS PRN 11/15/18 Rx Zyvox (Linezolid) 600 Mg Tablet 600 Mg PO BID 11/15/18 Rx Mupirocin Cream (Mupirocin) 15 Gm Cream..g. 1 Justina TP TID PRN 11/10/18 Reported Guaifenesin 100 Mg/5 Ml Liquid 100 Mg PO Q8HRS PRN 11/10/18 Reported Fluticasone Propionate Nasal [place] (Fluticasone Propionate) 16 Gm [place].susp 2 [place] NS DAILY 11/10/18 Reported Claritin (Loratadine) 10 Mg Capsule 10 Mg PO DAILY PRN 11/10/18 Reported Stomach Relief (Bismuth Subsalicylate) 262 Mg/15 Ml Oral.susp 262 Mg PEG Q6HRS PRN 11/10/18 Reported Artificial Tears Eye Drops (Dextran 70/Hypromellose) 15 Ml Drops 1 Drop EACHEYE QID PRN 11/10/18 Reported Albuterol Sulfate Neb Soln (Albuterol Sulfate) 2.5 Mg/3 Ml Vial.neb 2.5 Mg NEB Q8HRS PRN 11/10/18 Reported Proair Hfa Inhaler (Albuterol Sulfate) 8.5 Gm Hfa.aer.ad 1 Puff INH PRN Q6HRS PRN 08/08/16 Rx Azithromycin Tablet (Azithromycin) 250 Mg Tablet 1 Pkg PO UD 08/08/16 Rx Impression . 1. Acute respiratory failure, multifactorial. 2. Aspiration pneumonia. 3. Suspect gram-negative, possibly gram-positive and anaerobes. 4. Septic shock. resolved 5. Underlying dementia and depression. 6. Type 2 diabetes. 7. Gastroesophageal reflux. 8. Status post PEG tube placement in the past. 9. Multiple other comorbidities as indicated above. 10. Elevated troponin. 11.h/o TBI, with progressive dementia 12. Abnormal ct abdomen with 4.8 cm infra renal abd aneurysm Plan . 1. off sedation. MS at baseline. does not communicate. will do CPAP trial 2. Continue coverage for both gram-positive and gram-negative organisms. 3. Leave up to PCP to consider vascular surgery input 4. off pressor 5. NG to intermittent suction. start TF via PEG 6. abdomen and pelvis.CT REVIEWED 7. Consulted Cardiology. d/w d/w RIKA HUITRON MD Nov 23, 2018 10:27
--- NOTE | 2018-11-23 10:42 | PDOC ---
Infectious Disease Note Subjective Subjective Remains orally intubated, satting 99% on FiO2 40% Off sedation Off pressors NGT removed No fevers last 48 hours ROS ROS unobtainable Vital Sign Vital Signs Vital Signs Date Time Temp Pulse Resp B/P (MAP) Pulse Ox O2 Delivery O2 Flow Rate FiO2 11/23/18 10:00 107 20 126/66 (86) 100 Ventilator 11/23/18 07:00 97.7 97.7 11/22/18 12:41 15.0 Physical Exam PHYSICAL EXAM GENERAL: Orally intubated, calm, opens eyes to name HEENT: Pupils are equal and reactive. ETT LUNGS: Decreased in the bases. HEART: S1, S2, irregular ABDOMEN: Soft, no apparent guarding. PEG tube without signs of any complications. : Molina catheter clean. EXTREMITIES: Without clubbing or cyanosis. No gross edema. SCDs SKIN: Warm without generalized rash. MAINTENANCE DEPARTMENT TECHNICIAN: Opens eyes to name, no follow commands RIJ - clean Labs Lab Laboratory Tests Test 11/22/18 15:40 11/23/18 05:30 11/23/18 05:45 11/23/18 08:45 Vancomycin Level Trough 20.5 mcg/mL (10.0-20.0) Vancomycin Last Dose Date Unk Vancomycin Last Dose Time Unk Sodium Level 145 mmol/L (136-145) Potassium Level 3.5 mmol/L (3.5-5.1) Chloride Level 110 mmol/L (98-107) Carbon Dioxide Level 23 mmol/L (21-32) Anion Gap 12 (6-14) Blood Urea Nitrogen 11 mg/dL (8-26) Creatinine 0.6 mg/dL (0.7-1.3) Estimated GFR (Cockcroft-Gault) 133.6 Glucose Level 58 mg/dL (70-99) Calcium Level 7.6 mg/dL (8.5-10.1) White Blood Count 5.2 x10^3/uL (4.0-11.0) Red Blood Count 3.10 x10^6/uL (4.30-5.70) Hemoglobin 10.6 g/dL (13.0-17.5) Hematocrit 30.9 % (39.0-53.0) Mean Corpuscular Volume 100 fL (79-100) Mean Corpuscular Hemoglobin 34 pg (25-35) Mean Corpuscular Hemoglobin Concent 34 g/dL (31-37) Red Cell Distribution Width 13.3 % (11.5-14.5) Platelet Count 214 x10^3/uL (140-400) Neutrophils (%) (Auto) 75 % (31-73) Lymphocytes (%) (Auto) 14 % (24-48) Monocytes (%) (Auto) 7 % (0-9) Eosinophils (%) (Auto) 3 % (0-3) Basophils (%) (Auto) 1 % (0-3) Neutrophils # (Auto) 3.9 x10^3/uL (1.8-7.7) Lymphocytes # (Auto) 0.7 x10^3/uL (1.0-4.8) Monocytes # (Auto) 0.4 x10^3/uL (0.0-1.1) Eosinophils # (Auto) 0.1 x10^3/uL (0.0-0.7) Basophils # (Auto) 0.1 x10^3/uL (0.0-0.2) O2 Saturation 98 % (92-99) Arterial Blood pH 7.40 (7.35-7.45) Arterial Blood pCO2 at Patient Temp 35 mmHg (35-46) Arterial Blood pO2 at Patient Temp 118 mmHg (65-108) Arterial Blood HCO3 21 mmol/L (21-28) Arterial Blood Base Excess -3 mmol/L (-3-3) FiO2 40 Test 11/23/18 09:32 Glucose (Fingerstick) 118 mg/dL (70-99) CT A/P, 11/22 1. 4.8 cm infrarenal abdominal aortic aneurysm. There is nonspecific stranding within the retroperitoneum. However, there is no convincing aneurysm rupture. 2. Small bilateral pleural effusions with partial bilateral lower lobe consolidation. Follow-up to confirm resolution. 3. Bilateral nephrolithiasis. 4. 2.1 cm lesion along the posterior mid zone of the right kidney. This may be a complex cyst or solid lesion. Correlate with a renal sonogram. 5. Colonic diverticulosis. 6. Nasogastric tube and gastrostomy tube in expected position. 7. Small fat-containing supravesical hernia and ventral abdominal wall diastasis. 8. Bilateral gynecomastia. Micro Microbiology 11/20/18 Blood Culture - Preliminary, Resulted NO GROWTH AFTER 2 DAY Objective Assessment Sepsis, present on admission on 11/20. Acute respiratory failure, intubated. Leukocytosis - better Elevated troponin. LEVOFLOXACIN ALLERGY. Uncertain what happens when this is taken. A-fib Plan Plan of Care Continue Vanc and Zosyn for now. Vanc per pharmacy to manage Trough 20.5 Monitor renal function closely F/u labs and cults Poor prognosis Critically ill D/w nursing - mild irritation of PEG tube - will have dressing changed and will monitor Attending Co-Sign Attending Co-Sign The patient was seen and interviewed as well as examined at the bedside. The chart was reviewed. The case was discussed. Agree with the plan of care. HÉCTOR BHATIA APRN Nov 23, 2018 10:42 JAZIEL MONSALVE MD Nov 23, 2018 12:08
--- NOTE | 2018-11-23 11:34 | PDOC ---
RABIA LOCKHART TOGGLE PRESS OPERATOR 11/23/18 1134: CARDIO Progress Notes Date and Time Date of Service 11/23/18 Time of Evaluation 1130 Subjective Subjective: Other (intubated) Vitals Vitals Vital Signs Date Time Temp Pulse Resp B/P (MAP) Pulse Ox O2 Delivery O2 Flow Rate FiO2 11/23/18 10:00 107 20 126/66 (86) 100 Ventilator 11/23/18 07:00 97.7 97.7 11/22/18 12:41 15.0 Weight Weight [ ] Input and Output Intake and Output Intake and Output 11/23/18 06:59 Intake Total 2763 ml Output Total 2135 ml Balance 628 ml IV Total 2763 ml Output Urine Total 2135 ml Laboratory Labs Laboratory Tests Test 11/22/18 15:40 11/23/18 05:30 11/23/18 05:45 11/23/18 08:45 Vancomycin Level Trough 20.5 mcg/mL (10.0-20.0) Vancomycin Last Dose Date Unk Vancomycin Last Dose Time Unk Sodium Level 145 mmol/L (136-145) Potassium Level 3.5 mmol/L (3.5-5.1) Chloride Level 110 mmol/L (98-107) Carbon Dioxide Level 23 mmol/L (21-32) Anion Gap 12 (6-14) Blood Urea Nitrogen 11 mg/dL (8-26) Creatinine 0.6 mg/dL (0.7-1.3) Estimated GFR (Cockcroft-Gault) 133.6 Glucose Level 58 mg/dL (70-99) Calcium Level 7.6 mg/dL (8.5-10.1) White Blood Count 5.2 x10^3/uL (4.0-11.0) Red Blood Count 3.10 x10^6/uL (4.30-5.70) Hemoglobin 10.6 g/dL (13.0-17.5) Hematocrit 30.9 % (39.0-53.0) Mean Corpuscular Volume 100 fL (79-100) Mean Corpuscular Hemoglobin 34 pg (25-35) Mean Corpuscular Hemoglobin Concent 34 g/dL (31-37) Red Cell Distribution Width 13.3 % (11.5-14.5) Platelet Count 214 x10^3/uL (140-400) Neutrophils (%) (Auto) 75 % (31-73) Lymphocytes (%) (Auto) 14 % (24-48) Monocytes (%) (Auto) 7 % (0-9) Eosinophils (%) (Auto) 3 % (0-3) Basophils (%) (Auto) 1 % (0-3) Neutrophils # (Auto) 3.9 x10^3/uL (1.8-7.7) Lymphocytes # (Auto) 0.7 x10^3/uL (1.0-4.8) Monocytes # (Auto) 0.4 x10^3/uL (0.0-1.1) Eosinophils # (Auto) 0.1 x10^3/uL (0.0-0.7) Basophils # (Auto) 0.1 x10^3/uL (0.0-0.2) O2 Saturation 98 % (92-99) Arterial Blood pH 7.40 (7.35-7.45) Arterial Blood pCO2 at Patient Temp 35 mmHg (35-46) Arterial Blood pO2 at Patient Temp 118 mmHg (65-108) Arterial Blood HCO3 21 mmol/L (21-28) Arterial Blood Base Excess -3 mmol/L (-3-3) FiO2 40 Test 11/23/18 09:32 Glucose (Fingerstick) 118 mg/dL (70-99) Microbiology Micro Microbiology 11/21/18 Blood Culture - Preliminary, Resulted NO GROWTH AFTER 2 DAYS Physical Exam HEENT: Neck Supple W Full Motion Chest: Symmetric LUNGS: Other (diminished; intubated with vent) Heart: irregularly irregular (AFIB rate controlled) Abdomen: Other (soft) Extremities: No Edema Neurology: other (sedated) Assessment Assessment 1. Acute respiratory failure: multifactorial. intubated 2. Aspiration PNA; as per ID 3. Septic shock; off pressor support. BP adequate 4. Elevated troponin; most probably type II, demand ischemia. Recent echo with preserved LV systolic function 5. AFIB with RVR; refractory. rate now controlled 6. Hypomagnesemia; replaced 7. Hx of TBI/anoxic brain injury 8. Debility/dysphagia; s/p G-tube Recommendations Start BB for rate control Eliqius for stroke prevention Follow pulmonary recommendation Supportive care. KITTY MENDOZA MD 11/23/18 2216: CARDIO Progress Notes Assessment Assessment Patient seen and examined. Agree with CHILD CARE COUNSELOR's assessment and plan. Atrial fib rate better controlled Continue eliquis for stroke prophylaxis Off pressors Continue vent management per pulm team RABIA LOCKHART APRN Nov 23, 2018 11:34 KITTY MENDOZA MD Nov 23, 2018 21:09
--- NOTE | 2018-11-23 11:37 | NUR ---
Tube feeding started per orders: Glucerna 1.2 @ 20ml/hr with 120ml water flush every 4 hours. Increase tube feeding every 8 hours by 10 ml/hr.
--- NOTE | 2018-11-23 12:33 | PDOC ---
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 History of Present Illness History of Present Illness 11/23/18 Pt seen and examined in ICU Vent settings: AC/14/450/40% with 5 of PEEP Satting at 100% ABG pH 7.4 Molina to BSD 11/22/18 Pt seen and examined in ICU Pt is intubated Sedated with Verced Vent settings: AC/14/450/40% with 5 of PEP Satting at 100% ABG pH 7.39 DW RN Vitals/I&O Vitals/I&O: Vital Signs Date Time Temp Pulse Resp B/P (MAP) Pulse Ox O2 Delivery O2 Flow Rate FiO2 11/23/18 12:18 100 Ventilator 11/23/18 10:00 107 20 126/66 (86) 11/23/18 07:00 97.7 97.7 11/22/18 12:41 15.0 I & O 11/22/18 11/22/18 11/23/18 14:59 22:59 06:59 Intake Total 100 ml 1442 ml 1221 ml Output Total 810 ml 715 ml 610 ml Balance -710 ml 727 ml 611 ml Physical Exam Physical Exam: GENERAL: Orally intubated, calm, opens eyes to name HEENT: Pupils are equal and reactive. ETT LUNGS: Decreased in the bases. HEART: S1, S2, irregular ABDOMEN: Soft, no apparent guarding. PEG tube without signs of any complications. : Molina catheter clean. EXTREMITIES: Without clubbing or cyanosis. No gross edema. SCDs SKIN: Warm without generalized rash. 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, no follow commands RIJ - clean General: No acute distress, Other (pt intubated) Heart: Regular rate, Normal S1, Normal S2 Lungs: Other (decrease bs) Abdomen: Normal bowel sounds, No masses Extremities: No cyanosis, No edema Skin: No rashes, No significant lesion Labs Labs: Laboratory Tests Test 11/22/18 15:40 11/23/18 05:30 11/23/18 05:45 11/23/18 08:45 Vancomycin Level Trough 20.5 mcg/mL (10.0-20.0) Vancomycin Last Dose Date Unk Vancomycin Last Dose Time Unk Sodium Level 145 mmol/L (136-145) Potassium Level 3.5 mmol/L (3.5-5.1) Chloride Level 110 mmol/L (98-107) Carbon Dioxide Level 23 mmol/L (21-32) Anion Gap 12 (6-14) Blood Urea Nitrogen 11 mg/dL (8-26) Creatinine 0.6 mg/dL (0.7-1.3) Estimated GFR (Cockcroft-Gault) 133.6 Glucose Level 58 mg/dL (70-99) Calcium Level 7.6 mg/dL (8.5-10.1) White Blood Count 5.2 x10^3/uL (4.0-11.0) Red Blood Count 3.10 x10^6/uL (4.30-5.70) Hemoglobin 10.6 g/dL (13.0-17.5) Hematocrit 30.9 % (39.0-53.0) Mean Corpuscular Volume 100 fL (79-100) Mean Corpuscular Hemoglobin 34 pg (25-35) Mean Corpuscular Hemoglobin Concent 34 g/dL (31-37) Red Cell Distribution Width 13.3 % (11.5-14.5) Platelet Count 214 x10^3/uL (140-400) Neutrophils (%) (Auto) 75 % (31-73) Lymphocytes (%) (Auto) 14 % (24-48) Monocytes (%) (Auto) 7 % (0-9) Eosinophils (%) (Auto) 3 % (0-3) Basophils (%) (Auto) 1 % (0-3) Neutrophils # (Auto) 3.9 x10^3/uL (1.8-7.7) Lymphocytes # (Auto) 0.7 x10^3/uL (1.0-4.8) Monocytes # (Auto) 0.4 x10^3/uL (0.0-1.1) Eosinophils # (Auto) 0.1 x10^3/uL (0.0-0.7) Basophils # (Auto) 0.1 x10^3/uL (0.0-0.2) O2 Saturation 98 % (92-99) Arterial Blood pH 7.40 (7.35-7.45) Arterial Blood pCO2 at Patient Temp 35 mmHg (35-46) Arterial Blood pO2 at Patient Temp 118 mmHg (65-108) Arterial Blood HCO3 21 mmol/L (21-28) Arterial Blood Base Excess -3 mmol/L (-3-3) FiO2 40 Test 11/23/18 09:32 Glucose (Fingerstick) 118 mg/dL (70-99) Review of Systems Review of Systems: Unable to obtain Assessment and Plan Assessmemt and Plan Problems Medical Problems: (1) Acute respiratory failure Status: Acute (2) Aspiration pneumonia Status: Acute (3) Atrial fibrillation with RVR Status: Acute (4) COPD (chronic obstructive pulmonary disease) Status: Chronic (5) Hypomagnesemia Status: Acute (6) Sepsis Status: Acute (7) UTI (urinary tract infection) Status: Acute Assessment Sepsis Aspiration pneumonia COPD SOB Dementia Depression DM Diverticulitis GERD Kidney stones 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 Medications: Current Medications Medications (Trade) Dose Ordered Sig/Zak Route PRN Reason Start Time Stop Time Status Last Admin Dose Admin Vancomycin HCl (Vancomycin Trough Level) 1 each 1X ONCE MC 11/22/18 15:30 11/22/18 15:31 DC 11/22/18 15:42 Metoprolol Tartrate (Lopressor Vial) 5 mg 1X ONCE IVP 11/22/18 15:00 11/22/18 15:01 DC 11/22/18 15:04 Vancomycin HCl 1 gm/Sodium Chloride 250 ml @ 250 mls/hr Q12H IV 11/22/18 19:00 11/23/18 09:05 FADI BEARD III DO Nov 23, 2018 12:33
[2018-11-23] MEDS: METOPROLOL TART IMMED RELEASE 25 MG TABLET. PO SCH ×3 (13:00→22:05)
[2018-11-23] MEDS: IV NORMAL SALINE 1000ML BAG 1,000 ML IV SCH (14:39)
[2018-11-23] MEDS: VANCOMYCIN PER PHARMACY MC PRN (15:54)
[2018-11-23] MEDS ORDERED: MAGNESIUM CITRATE 296 ML SOLUTION. PO ONE (16:00)
[2018-11-23] MEDS: DOCUSATE 100 MG/10 ML SOLUTION. PO SCH (20:53)
[2018-11-24] VITALS (24 sets, daily range): BP systolic 79–119; BP diastolic 46–77
[2018-11-24] MEDS: IV NORMAL SALINE 1000ML BAG 1,000 ML IV SCH ×3 (00:48→16:17)
[2018-11-24] MEDS: PIPERACILLIN/TAZOBACTAM 3.375 GM in IV NORMAL SALINE 50ML 50 ML IV SCH ×4 (00:48→17:32)
[2018-11-24 06:21] LABS: BASO % 1 % (0-3); CALCIUM 7.6 mg/dL (8.5-10.1); CREATININE 0.6 mg/dL (0.7-1.3); EOS # 0.1 x10^3/uL (0.0-0.7); EOS % 3 % (0-3); GFR 133.6; HEMATOCRIT 29.5 % (39.0-53.0); HEMOGLOBIN 10.2 g/dL (13.0-17.5); LYMPH # 0.7 x10^3/uL (1.0-4.8); LYMPH % 16 % (24-48); MEAN CORPUSCULAR HEMOGLOBIN 34 pg (25-35); MEAN CORPUSCULAR HGB CONC 35 g/dL (31-37); MEAN CORPUSCULAR VOLUME 99 fL (79-100); MONO # 0.4 x10^3/uL (0.0-1.1); MONO % 10 % (0-9); NEUT # 3.2 x10^3/uL (1.8-7.7); NEUT % 71 % (31-73); PLATELET COUNT 208 x10^3/uL (140-400); POTASSIUM 3.5 mmol/L (3.5-5.1); RED BLOOD COUNT 2.97 x10^6/uL (4.30-5.70); RED CELL DISTRIBUTION WIDTH 12.9 % (11.5-14.5); WHITE BLOOD COUNT 4.6 x10^3/uL (4.0-11.0)
[2018-11-24 06:31] LABS: VANC TR 18.6 mcg/mL (10.0-20.0)
[2018-11-24] MEDS: VANCOMYCIN 1 GM in IV NORMAL SALINE 250ML 250 ML IV SCH (07:36)
[2018-11-24] MEDS: VANCOMYCIN PER PHARMACY MC PRN (07:43)
--- NOTE | 2018-11-24 07:43 | NUR ---
Pharmacy Vancomycin Dosing Note S: Consulted to monitor and dose vancomycin started 11/21/18. O: POP ROQUE is a 68 year old M with Sepsis, Pneumonia. Other Antibiotics: ZOSYN 3.375 GM Q6H LABS: Last BUN: 8 Last Creatinine: 0.6 Creatinine Clearance: 82 mL/min Last WBC: 4.6 Microbiology: BLOOD CX ARE NGTD Drug Levels: Last Trough level: 18.6 on 11/24/18 at 0555 Vancomycin Dosing: Dosing Weight: Actual Target Trough: 15-20 A: Based on: TROUGH LEVEL P: 1. Continue Vancomycin 1000 mg IV q12h 2. Follow up Trough level in 5-7 days or if renal function changes 3. Pharmacy will continue to monitor, follow and adjust therapy as needed. [facility], 11/24/18 [id number]
[2018-11-24 07:55] LABS: BASE EXCESS ABG 1 mmol/L (-3-3); HCO3 ABG 27 mmol/L (21-28); PCO2 ABG 44 mmHg (35-46); PO2 ABG 110 mmHg (65-108); SAT O2 ABG 98 % (92-99)
[2018-11-24 07:57] LABS: FIO2 ABG 40
--- NOTE | 2018-11-24 08:53 | PDOC ---
Infectious Disease Note Subjective Subjective Orally intubated, satting 100% on FiO2 40%, on weaning trial Off sedation Off pressors No fevers last 72 hours ROS ROS unobtainable Vital Sign Vital Signs Vital Signs Date Time Temp Pulse Resp B/P (MAP) Pulse Ox O2 Delivery O2 Flow Rate FiO2 11/24/18 08:40 100 Ventilator 11/24/18 06:00 67 14 99/61 (74) 11/24/18 04:00 98.5 98.5 Physical Exam PHYSICAL EXAM GENERAL: Orally intubated, calm Alert HEENT: Pupils are equal and reactive. ETT LUNGS: Decreased in the bases. HEART: S1, S2, irregular ABDOMEN: Soft, no apparent guarding. PEG tube - improved : Molina EXTREMITIES: Without clubbing or cyanosis, no gross edema. 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 to name RIJ - clean Labs Lab Laboratory Tests Test 11/23/18 09:32 11/23/18 16:52 11/24/18 05:55 11/24/18 07:30 Glucose (Fingerstick) 118 mg/dL (70-99) 75 mg/dL (70-99) White Blood Count 4.6 x10^3/uL (4.0-11.0) Red Blood Count 2.97 x10^6/uL (4.30-5.70) Hemoglobin 10.2 g/dL (13.0-17.5) Hematocrit 29.5 % (39.0-53.0) Mean Corpuscular Volume 99 fL (79-100) Mean Corpuscular Hemoglobin 34 pg (25-35) Mean Corpuscular Hemoglobin Concent 35 g/dL (31-37) Red Cell Distribution Width 12.9 % (11.5-14.5) Platelet Count 208 x10^3/uL (140-400) Neutrophils (%) (Auto) 71 % (31-73) Lymphocytes (%) (Auto) 16 % (24-48) Monocytes (%) (Auto) 10 % (0-9) Eosinophils (%) (Auto) 3 % (0-3) Basophils (%) (Auto) 1 % (0-3) Neutrophils # (Auto) 3.2 x10^3/uL (1.8-7.7) Lymphocytes # (Auto) 0.7 x10^3/uL (1.0-4.8) Monocytes # (Auto) 0.4 x10^3/uL (0.0-1.1) Eosinophils # (Auto) 0.1 x10^3/uL (0.0-0.7) Basophils # (Auto) 0.0 x10^3/uL (0.0-0.2) Sodium Level 141 mmol/L (136-145) Potassium Level 3.5 mmol/L (3.5-5.1) Chloride Level 107 mmol/L (98-107) Carbon Dioxide Level 28 mmol/L (21-32) Anion Gap 6 (6-14) Blood Urea Nitrogen 8 mg/dL (8-26) Creatinine 0.6 mg/dL (0.7-1.3) Estimated GFR (Cockcroft-Gault) 133.6 Glucose Level 104 mg/dL (70-99) Calcium Level 7.6 mg/dL (8.5-10.1) Vancomycin Level Trough 18.6 mcg/mL (10.0-20.0) Vancomycin Last Dose Date 11/23/18 Vancomycin Last Dose Time 1900 O2 Saturation 98 % (92-99) Arterial Blood pH 7.40 (7.35-7.45) Arterial Blood pCO2 at Patient Temp 44 mmHg (35-46) Arterial Blood pO2 at Patient Temp 110 mmHg (65-108) Arterial Blood HCO3 27 mmol/L (21-28) Arterial Blood Base Excess 1 mmol/L (-3-3) FiO2 40 Micro Microbiology 11/20/18 Blood Culture - Preliminary, Resulted NO GROWTH AFTER 2 DAY URINE CULTURE RES 1 Final No growth Objective Assessment Sepsis, present on admission on 11/20. Acute respiratory failure, intubated. Leukocytosis - better Elevated troponin. LEVOFLOXACIN ALLERGY. Uncertain what happens when this is taken. A-fib Plan Plan of Care Continue Vanc and Zosyn for now. Vanc per pharmacy to manage Trough 18.6 Monitor renal function closely F/u labs and cults Poor prognosis Critically ill Now extubated - nonverbal - alert and calm Attending Co-Sign Attending Co-Sign The patient was seen and interviewed as well as examined at the bedside. The [facility] rt was reviewed. The case was discussed. Agree with the plan of care. HÉCTOR BHATIA APRN Nov 24, 2018 08:53 JAZIEL MONSALVE MD Nov 24, 2018 13:39
[2018-11-24] MEDS: METOPROLOL TART IMMED RELEASE 25 MG TABLET. PO SCH ×2 (09:00→14:15)
[2018-11-24 09:32] LABS: BASE EXCESS ABG 1 mmol/L (-3-3); HCO3 ABG 26 mmol/L (21-28); PCO2 ABG 40 mmHg (35-46); PO2 ABG 114 mmHg (65-108); SAT O2 ABG 98 % (92-99)
[2018-11-24 09:33] LABS: FIO2 ABG 40 CPAP
[2018-11-24] MEDS: DOCUSATE 100 MG/10 ML SOLUTION. PO SCH (09:41)
[2018-11-24] MEDS: ASPIRIN CHEWABLE 81 MG TABLET. PO SCH (09:42)
[2018-11-24] MEDS: FAMOTIDINE 20 MG/2 ML VIAL IVP SCH (09:42)
[2018-11-24] MEDS: APIXABAN 5 MG TABLET. PO SCH (09:42)
[2018-11-24] MEDS ORDERED: MULTIVITAMIN with MINERAL TABLET. PO SCH (11:00)
--- NOTE | 2018-11-24 11:36 | PDOC ---
PULMONARY PROGRESS NOTES Subjective Did better on CPAP trial today extubated off levo MS at baseline Vitals Vital Signs Date Time Temp Pulse Resp B/P (MAP) Pulse Ox O2 Delivery O2 Flow Rate FiO2 11/24/18 09:49 58 11/24/18 09:13 100 Ventilator 11/24/18 06:00 14 99/61 (74) 11/24/18 04:00 98.5 98.5 Comments does not follow commands General: Alert, No acute distress Lungs: Other (rhonchi upper chest) Cardiovascular: S1 Abdomen: Soft, Other (mildly tender) Neuro Exam: Alert Extremities: Other (trace edema) Skin: Warm Labs Laboratory Tests Test 11/22/18 15:40 11/23/18 05:30 11/23/18 05:45 11/23/18 08:45 Vancomycin Level Trough 20.5 mcg/mL (10.0-20.0) Vancomycin Last Dose Date Unk Vancomycin Last Dose Time Unk Sodium Level 145 mmol/L (136-145) Potassium Level 3.5 mmol/L (3.5-5.1) Chloride Level 110 mmol/L (98-107) Carbon Dioxide Level 23 mmol/L (21-32) Anion Gap 12 (6-14) Blood Urea Nitrogen 11 mg/dL (8-26) Creatinine 0.6 mg/dL (0.7-1.3) Estimated GFR (Cockcroft-Gault) 133.6 Glucose Level 58 mg/dL (70-99) Calcium Level 7.6 mg/dL (8.5-10.1) White Blood Count 5.2 x10^3/uL (4.0-11.0) Red Blood Count 3.10 x10^6/uL (4.30-5.70) Hemoglobin 10.6 g/dL (13.0-17.5) Hematocrit 30.9 % (39.0-53.0) Mean Corpuscular Volume 100 fL (79-100) Mean Corpuscular Hemoglobin 34 pg (25-35) Mean Corpuscular Hemoglobin Concent 34 g/dL (31-37) Red Cell Distribution Width 13.3 % (11.5-14.5) Platelet Count 214 x10^3/uL (140-400) Neutrophils (%) (Auto) 75 % (31-73) Lymphocytes (%) (Auto) 14 % (24-48) Monocytes (%) (Auto) 7 % (0-9) Eosinophils (%) (Auto) 3 % (0-3) Basophils (%) (Auto) 1 % (0-3) Neutrophils # (Auto) 3.9 x10^3/uL (1.8-7.7) Lymphocytes # (Auto) 0.7 x10^3/uL (1.0-4.8) Monocytes # (Auto) 0.4 x10^3/uL (0.0-1.1) Eosinophils # (Auto) 0.1 x10^3/uL (0.0-0.7) Basophils # (Auto) 0.1 x10^3/uL (0.0-0.2) O2 Saturation 98 % (92-99) Arterial Blood pH 7.40 (7.35-7.45) Arterial Blood pCO2 at Patient Temp 35 mmHg (35-46) Arterial Blood pO2 at Patient Temp 118 mmHg (65-108) Arterial Blood HCO3 21 mmol/L (21-28) Arterial Blood Base Excess -3 mmol/L (-3-3) FiO2 40 Test 11/23/18 09:32 11/23/18 16:52 11/24/18 05:55 11/24/18 07:30 Glucose (Fingerstick) 118 mg/dL (70-99) 75 mg/dL (70-99) White Blood Count 4.6 x10^3/uL (4.0-11.0) Red Blood Count 2.97 x10^6/uL (4.30-5.70) Hemoglobin 10.2 g/dL (13.0-17.5) Hematocrit 29.5 % (39.0-53.0) Mean Corpuscular Volume 99 fL (79-100) Mean Corpuscular Hemoglobin 34 pg (25-35) Mean Corpuscular Hemoglobin Concent 35 g/dL (31-37) Red Cell Distribution Width 12.9 % (11.5-14.5) Platelet Count 208 x10^3/uL (140-400) Neutrophils (%) (Auto) 71 % (31-73) Lymphocytes (%) (Auto) 16 % (24-48) Monocytes (%) (Auto) 10 % (0-9) Eosinophils (%) (Auto) 3 % (0-3) Basophils (%) (Auto) 1 % (0-3) Neutrophils # (Auto) 3.2 x10^3/uL (1.8-7.7) Lymphocytes # (Auto) 0.7 x10^3/uL (1.0-4.8) Monocytes # (Auto) 0.4 x10^3/uL (0.0-1.1) Eosinophils # (Auto) 0.1 x10^3/uL (0.0-0.7) Basophils # (Auto) 0.0 x10^3/uL (0.0-0.2) Sodium Level 141 mmol/L (136-145) Potassium Level 3.5 mmol/L (3.5-5.1) Chloride Level 107 mmol/L (98-107) Carbon Dioxide Level 28 mmol/L (21-32) Anion Gap 6 (6-14) Blood Urea Nitrogen 8 mg/dL (8-26) Creatinine 0.6 mg/dL (0.7-1.3) Estimated GFR (Cockcroft-Gault) 133.6 Glucose Level 104 mg/dL (70-99) Calcium Level 7.6 mg/dL (8.5-10.1) Vancomycin Level Trough 18.6 mcg/mL (10.0-20.0) Vancomycin Last Dose Date 11/23/18 Vancomycin Last Dose Time 1900 O2 Saturation 98 % (92-99) Arterial Blood pH 7.40 (7.35-7.45) Arterial Blood pCO2 at Patient Temp 44 mmHg (35-46) Arterial Blood pO2 at Patient Temp 110 mmHg (65-108) Arterial Blood HCO3 27 mmol/L (21-28) Arterial Blood Base Excess 1 mmol/L (-3-3) FiO2 40 Test 11/24/18 09:26 O2 Saturation 98 % (92-99) Arterial Blood pH 7.43 (7.35-7.45) Arterial Blood pCO2 at Patient Temp 40 mmHg (35-46) Arterial Blood pO2 at Patient Temp 114 mmHg (65-108) Arterial Blood HCO3 26 mmol/L (21-28) Arterial Blood Base Excess 1 mmol/L (-3-3) FiO2 40 cpap Laboratory Tests Test 11/23/18 16:52 11/24/18 05:55 11/24/18 07:30 11/24/18 09:26 Glucose (Fingerstick) 75 mg/dL (70-99) White Blood Count 4.6 x10^3/uL (4.0-11.0) Red Blood Count 2.97 x10^6/uL (4.30-5.70) Hemoglobin 10.2 g/dL (13.0-17.5) Hematocrit 29.5 % (39.0-53.0) Mean Corpuscular Volume 99 fL (79-100) Mean Corpuscular Hemoglobin 34 pg (25-35) Mean Corpuscular Hemoglobin Concent 35 g/dL (31-37) Red Cell Distribution Width 12.9 % (11.5-14.5) Platelet Count 208 x10^3/uL (140-400) Neutrophils (%) (Auto) 71 % (31-73) Lymphocytes (%) (Auto) 16 % (24-48) Monocytes (%) (Auto) 10 % (0-9) Eosinophils (%) (Auto) 3 % (0-3) Basophils (%) (Auto) 1 % (0-3) Neutrophils # (Auto) 3.2 x10^3/uL (1.8-7.7) Lymphocytes # (Auto) 0.7 x10^3/uL (1.0-4.8) Monocytes # (Auto) 0.4 x10^3/uL (0.0-1.1) Eosinophils # (Auto) 0.1 x10^3/uL (0.0-0.7) Basophils # (Auto) 0.0 x10^3/uL (0.0-0.2) Sodium Level 141 mmol/L (136-145) Potassium Level 3.5 mmol/L (3.5-5.1) Chloride Level 107 mmol/L (98-107) Carbon Dioxide Level 28 mmol/L (21-32) Anion Gap 6 (6-14) Blood Urea Nitrogen 8 mg/dL (8-26) Creatinine 0.6 mg/dL (0.7-1.3) Estimated GFR (Cockcroft-Gault) 133.6 Glucose Level 104 mg/dL (70-99) Calcium Level 7.6 mg/dL (8.5-10.1) Vancomycin Level Trough 18.6 mcg/mL (10.0-20.0) Vancomycin Last Dose Date 11/23/18 Vancomycin Last Dose Time 1900 O2 Saturation 98 % (92-99) 98 % (92-99) Arterial Blood pH 7.40 (7.35-7.45) 7.43 (7.35-7.45) Arterial Blood pCO2 at Patient Temp 44 mmHg (35-46) 40 mmHg (35-46) Arterial Blood pO2 at Patient Temp 110 mmHg (65-108) 114 mmHg (65-108) Arterial Blood HCO3 27 mmol/L (21-28) 26 mmol/L (21-28) Arterial Blood Base Excess 1 mmol/L (-3-3) 1 mmol/L (-3-3) FiO2 40 40 cpap Medications Active Scripts Medications Dose Route/Sig Max Daily Dose Days Date Category Tramadol Hcl 50 Mg Tablet 50 Mg PO PRN Q6HRS PRN 11/15/18 Rx Zyvox (Linezolid) 600 Mg Tablet 600 Mg PO BID 11/15/18 Rx Mupirocin Cream (Mupirocin) 15 Gm Cream..g. 1 Justina TP TID PRN 11/10/18 Reported Guaifenesin 100 Mg/5 Ml Liquid 100 Mg PO Q8HRS PRN 11/10/18 Reported Fluticasone Propionate Nasal Stewart (Fluticasone Propionate) 16 Gm Stewart.susp 2 Stewart NS DAILY 11/10/18 Reported Claritin (Loratadine) 10 Mg Capsule 10 Mg PO DAILY PRN 11/10/18 Reported Stomach Relief (Bismuth Subsalicylate) 262 Mg/15 Ml Oral.susp 262 Mg PEG Q6HRS PRN 11/10/18 Reported Artificial Tears Eye Drops (Dextran 70/Hypromellose) 15 Ml Drops 1 Drop EACHEYE QID PRN 11/10/18 Reported Albuterol Sulfate Neb Soln (Albuterol Sulfate) 2.5 Mg/3 Ml Vial.neb 2.5 Mg NEB Q8HRS PRN 11/10/18 Reported Proair Hfa Inhaler (Albuterol Sulfate) 8.5 Gm Hfa.aer.ad 1 Puff INH PRN Q6HRS PRN 08/08/16 Rx Azithromycin Tablet (Azithromycin) 250 Mg Tablet 1 Pkg PO UD 08/08/16 Rx Impression . 1. Acute respiratory failure, multifactorial. Extubated today 2. Aspiration pneumonia. 3. Suspect gram-negative, possibly gram-positive and anaerobes. 4. Septic shock. resolved 5. Underlying dementia and depression. 6. Type 2 diabetes. 7. Gastroesophageal reflux. 8. Status post PEG tube placement in the past. 9. Multiple other comorbidities as indicated above. 10. Elevated troponin. 11.h/o TBI, with progressive dementia 12. 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 1. extubated. MS at baseline. does not communicate. 2. Continue coverage for both gram-positive and gram-negative organisms. 3. Leave up to PCP to consider vascular surgery input 4. off pressor 5. TF via PEG 6. abdomen and pelvis.CT REVIEWED 7. Consulted Cardiology. 8. Needs prn suction. cannot clear secretions d/w in detail reg code status. she will let us know today today about DNR/DNI d/w RIKA HUITRON MD Nov 24, 2018 11:36
--- NOTE | 2018-11-24 11:48 | PDOC ---
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 Tara ANDREWS RN 11/23/18 Pt seen and examined in ICU Vent settings: AC/14/450/40% with 5 of PEEP Satting at 100% ABG pH 7.4 Jesse to BSShakira 11/22/18 Pt seen and examined in ICU Pt is intubated Sedated with Verced Vent settings: AC/14/450/40% with 5 of PEP Satting at 100% ABG pH 7.39 JULIANA RN Vitals/I&O Vitals/I&O: Vital Signs Date Time Temp Pulse Resp B/P (MAP) Pulse Ox O2 Delivery O2 Flow Rate FiO2 11/24/18 09:49 58 11/24/18 09:13 100 Ventilator 11/24/18 06:00 14 99/61 (74) 11/24/18 04:00 98.5 98.5 I & O 11/23/18 11/23/18 11/24/18 15:00 23:00 07:00 Intake Total 1806.77 ml 2103 ml Output Total 735 ml 575 ml 355 ml Balance -735 ml 1231.77 ml 1748 ml Physical Exam Physical Exam: GENERAL: Orally intubated, calm HEENT: Pupils are equal and reactive. ETT LUNGS: Decreased in the bases. HEART: S1, S2, irregular ABDOMEN: Soft, no apparent guarding. PEG tube : Molina EXTREMITIES: Without clubbing or cyanosis, no gross edema. 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 RIJ - clean General: Alert, Oriented X3, No acute distress Heart: Regular rate, Normal S1, Normal S2 Lungs: Other (rhonchi upper chest) Abdomen: Normal bowel sounds, No masses Extremities: No cyanosis, No edema Skin: No rashes, No significant lesion Labs Labs: Laboratory Tests Test 11/23/18 16:52 11/24/18 05:55 11/24/18 07:30 11/24/18 09:26 Glucose (Fingerstick) 75 mg/dL (70-99) White Blood Count 4.6 x10^3/uL (4.0-11.0) Red Blood Count 2.97 x10^6/uL (4.30-5.70) Hemoglobin 10.2 g/dL (13.0-17.5) Hematocrit 29.5 % (39.0-53.0) Mean Corpuscular Volume 99 fL (79-100) Mean Corpuscular Hemoglobin 34 pg (25-35) Mean Corpuscular Hemoglobin Concent 35 g/dL (31-37) Red Cell Distribution Width 12.9 % (11.5-14.5) Platelet Count 208 x10^3/uL (140-400) Neutrophils (%) (Auto) 71 % (31-73) Lymphocytes (%) (Auto) 16 % (24-48) Monocytes (%) (Auto) 10 % (0-9) Eosinophils (%) (Auto) 3 % (0-3) Basophils (%) (Auto) 1 % (0-3) Neutrophils # (Auto) 3.2 x10^3/uL (1.8-7.7) Lymphocytes # (Auto) 0.7 x10^3/uL (1.0-4.8) Monocytes # (Auto) 0.4 x10^3/uL (0.0-1.1) Eosinophils # (Auto) 0.1 x10^3/uL (0.0-0.7) Basophils # (Auto) 0.0 x10^3/uL (0.0-0.2) Sodium Level 141 mmol/L (136-145) Potassium Level 3.5 mmol/L (3.5-5.1) Chloride Level 107 mmol/L (98-107) Carbon Dioxide Level 28 mmol/L (21-32) Anion Gap 6 (6-14) Blood Urea Nitrogen 8 mg/dL (8-26) Creatinine 0.6 mg/dL (0.7-1.3) Estimated GFR (Cockcroft-Gault) 133.6 Glucose Level 104 mg/dL (70-99) Calcium Level 7.6 mg/dL (8.5-10.1) Vancomycin Level Trough 18.6 mcg/mL (10.0-20.0) Vancomycin Last Dose Date 11/23/18 Vancomycin Last Dose Time 1900 O2 Saturation 98 % (92-99) 98 % (92-99) Arterial Blood pH 7.40 (7.35-7.45) 7.43 (7.35-7.45) Arterial Blood pCO2 at Patient Temp 44 mmHg (35-46) 40 mmHg (35-46) Arterial Blood pO2 at Patient Temp 110 mmHg (65-108) 114 mmHg (65-108) Arterial Blood HCO3 27 mmol/L (21-28) 26 mmol/L (21-28) Arterial Blood Base Excess 1 mmol/L (-3-3) 1 mmol/L (-3-3) FiO2 40 40 cpap Review of Systems Review of Systems: Denies [place] Denies N/V/D Assessment and Plan Assessmemt and Plan Problems Medical Problems: (1) Acute respiratory failure Status: Acute (2) Aspiration pneumonia Status: Acute (3) Atrial fibrillation with RVR Status: Acute (4) COPD (chronic obstructive pulmonary disease) Status: Chronic (5) Hypomagnesemia Status: Acute (6) Sepsis Status: Acute (7) UTI (urinary tract infection) Status: Acute Assessment Sepsis Aspiration pneumonia COPD SOB Dementia Depression DM Diverticulitis GERD Kidney stones TBI from previous suicide attempt Plan ICU monitoring IV zosyn and vancomycin NTS Peg feeds Multivitamin DVT prophylaxis Labs Home meds Total time 31 min Comment Review of Relevant I have reviewed the following items lew (where applicable) has been applied. Medications: Current Medications Medications (Trade) Dose Ordered Sig/Zak Route PRN Reason Start Time Stop Time Status Last Admin Dose Admin Vancomycin HCl (Vancomycin Trough Level) 1 each 1X ONCE 11/24/18 06:30 11/24/18 06:31 DC 11/24/18 07:25 Metoprolol Tartrate (Lopressor) 25 mg BID PO 11/23/18 13:00 11/24/18 03:32 Magnesium Citrate (Citroma) 148 ml 1X ONCE PO 11/23/18 16:00 11/23/18 16:01 DC 11/23/18 16:10 Docusate Sodium (Colace Solution) 100 mg BID PO 11/23/18 21:00 11/24/18 09:42 FADI BEARD III DO Nov 24, 2018 11:48
[2018-11-24] MEDS: MULTIVITAMINS,THERAPEUTIC 5 ML ORAL LIQUID. PEG SCH (13:46)
--- NOTE | 2018-11-24 14:02 | PDOC ---
CARDIO Progress Notes Date and Time Date of Service 11/24/18 Time of Evaluation 1315 Subjective Subjective: Other (nonverbal ) Vitals Vitals Vital Signs Date Time Temp Pulse Resp B/P (MAP) Pulse Ox O2 Delivery O2 Flow Rate FiO2 11/24/18 13:00 85 30 95/56 (69) 98 Nasal Cannula 4.0 11/24/18 04:00 98.5 98.5 Weight Weight [ ] Input and Output Intake and Output Intake and Output 11/24/18 07:00 Intake Total 3909.77 ml Output Total 1695 ml Balance 2214.77 ml IV Total 2657.77 ml Tube Feeding 772 ml Other 480 ml Output Urine Total 1695 ml Gastric Drainage Total 0 ml Laboratory Labs Laboratory Tests Test 11/23/18 16:52 11/24/18 05:55 11/24/18 07:30 11/24/18 09:26 Glucose (Fingerstick) 75 mg/dL (70-99) White Blood Count 4.6 x10^3/uL (4.0-11.0) Red Blood Count 2.97 x10^6/uL (4.30-5.70) Hemoglobin 10.2 g/dL (13.0-17.5) Hematocrit 29.5 % (39.0-53.0) Mean Corpuscular Volume 99 fL (79-100) Mean Corpuscular Hemoglobin 34 pg (25-35) Mean Corpuscular Hemoglobin Concent 35 g/dL (31-37) Red Cell Distribution Width 12.9 % (11.5-14.5) Platelet Count 208 x10^3/uL (140-400) Neutrophils (%) (Auto) 71 % (31-73) Lymphocytes (%) (Auto) 16 % (24-48) Monocytes (%) (Auto) 10 % (0-9) Eosinophils (%) (Auto) 3 % (0-3) Basophils (%) (Auto) 1 % (0-3) Neutrophils # (Auto) 3.2 x10^3/uL (1.8-7.7) Lymphocytes # (Auto) 0.7 x10^3/uL (1.0-4.8) Monocytes # (Auto) 0.4 x10^3/uL (0.0-1.1) Eosinophils # (Auto) 0.1 x10^3/uL (0.0-0.7) Basophils # (Auto) 0.0 x10^3/uL (0.0-0.2) Sodium Level 141 mmol/L (136-145) Potassium Level 3.5 mmol/L (3.5-5.1) Chloride Level 107 mmol/L (98-107) Carbon Dioxide Level 28 mmol/L (21-32) Anion Gap 6 (6-14) Blood Urea Nitrogen 8 mg/dL (8-26) Creatinine 0.6 mg/dL (0.7-1.3) Estimated GFR (Cockcroft-Gault) 133.6 Glucose Level 104 mg/dL (70-99) Calcium Level 7.6 mg/dL (8.5-10.1) Vancomycin Level Trough 18.6 mcg/mL (10.0-20.0) Vancomycin Last Dose Date 11/23/18 Vancomycin Last Dose Time 1900 O2 Saturation 98 % (92-99) 98 % (92-99) Arterial Blood pH 7.40 (7.35-7.45) 7.43 (7.35-7.45) Arterial Blood pCO2 at Patient Temp 44 mmHg (35-46) 40 mmHg (35-46) Arterial Blood pO2 at Patient Temp 110 mmHg (65-108) 114 mmHg (65-108) Arterial Blood HCO3 27 mmol/L (21-28) 26 mmol/L (21-28) Arterial Blood Base Excess 1 mmol/L (-3-3) 1 mmol/L (-3-3) FiO2 40 40 cpap Test 11/24/18 12:19 Glucose (Fingerstick) 103 mg/dL (70-99) Microbiology Micro Microbiology 11/21/18 Blood Culture - Preliminary, Resulted NO GROWTH AFTER 3 DAYS 11/20/18 Urine Culture - Final, Complete 11/20/18 Urine Culture Result 1 (KASIE) - Final, Complete Physical Exam HEENT: Neck Supple W Full Motion Chest: Symmetric LUNGS: Other (crackles, increase upper secretions ) Heart: irregularly irregular (AFIB rate controlled) Abdomen: Other (soft) Extremities: No Edema Neurology: other (nonverbal ) Assessment Assessment 1. Acute respiratory failure: multifactorial. extubated 2. Aspiration PNA; as per ID 3. Septic shock; off pressor support. BP maintaining 4. Elevated troponin; most probably type II, demand ischemia. Recent echo with preserved LV systolic function 5. AFIB with RVR; refractory. rate now controlled 6. Hypomagnesemia; replaced 7. Hx of TBI/anoxic brain injury 8. Debility/dysphagia; s/p G-tube Recommendations Continue BB for rate control Eliqius for stroke prevention Follow pulmonary recommendation Supportive care. RABIA LOCKHART APRN Nov 24, 2018 14:02
--- NOTE | 2018-11-24 14:30 | NUR ---
New tube feeding container and setup hung
--- NOTE | 2018-11-24 15:14 | NUR ---
SS following up with discharge planning. Pt extubated and now on nasal cannula oxygen. PT reported no skilled needs at this time. Pt will return to home with spouse at discharge. SS will continue to follow for discharge planning.
--- NOTE | 2018-11-24 17:16 | NUR ---
Wound Care Wound care consult for peg tube excoriation. Pt has reddened area under peg tube that is reddened, draining and irritated. Cleansed area and applied skin prep, ostomy powder and drain sponge, recommend to change daily and as needed for drainage. No other wounds noted on full skin inspection. Pt left on right side with heels floated. WC will continue to follow for possible changes.
[2018-11-25] VITALS (15 sets, daily range): BP systolic 100–128; BP diastolic 65–81
[2018-11-25] MEDS: VANCOMYCIN 1 GM in IV NORMAL SALINE 250ML 250 ML IV SCH ×2 (00:05→09:21)
[2018-11-25] MEDS: FAMOTIDINE 20 MG/2 ML VIAL IVP SCH ×3 (00:05→21:29)
[2018-11-25] MEDS: METOPROLOL TART IMMED RELEASE 25 MG TABLET. PO SCH ×3 (00:07→21:28)
[2018-11-25] MEDS: DOCUSATE 100 MG/10 ML SOLUTION. PO SCH ×3 (00:07→21:00)
[2018-11-25] MEDS: PIPERACILLIN/TAZOBACTAM 3.375 GM in IV NORMAL SALINE 50ML 50 ML IV SCH ×5 (00:07→23:51)
[2018-11-25] MEDS: APIXABAN 5 MG TABLET. PO SCH ×3 (00:07→21:29)
[2018-11-25 05:22] LABS: CALCIUM 7.8 mg/dL (8.5-10.1); CREATININE 0.5 mg/dL (0.7-1.3); GFR 164.9; POTASSIUM 3.5 mmol/L (3.5-5.1)
[2018-11-25] MEDS: IV NORMAL SALINE 1000ML BAG 1,000 ML IV SCH ×2 (05:36→09:22)
[2018-11-25 05:44] LABS: BASO % 1 % (0-3); EOS # 0.2 x10^3/uL (0.0-0.7); EOS % 3 % (0-3); HEMATOCRIT 32.9 % (39.0-53.0); HEMOGLOBIN 11.1 g/dL (13.0-17.5); LYMPH # 0.8 x10^3/uL (1.0-4.8); LYMPH % 15 % (24-48); MEAN CORPUSCULAR HEMOGLOBIN 34 pg (25-35); MEAN CORPUSCULAR HGB CONC 34 g/dL (31-37); MEAN CORPUSCULAR VOLUME 100 fL (79-100); MONO # 0.5 x10^3/uL (0.0-1.1); MONO % 9 % (0-9); NEUT % 73 % (31-73); PLATELET COUNT 237 x10^3/uL (140-400); RED CELL DISTRIBUTION WIDTH 13.1 % (11.5-14.5); WHITE BLOOD COUNT 5.5 x10^3/uL (4.0-11.0)
[2018-11-25] MEDS: ASPIRIN CHEWABLE 81 MG TABLET. PO SCH (09:21)
[2018-11-25] MEDS: MULTIVITAMINS,THERAPEUTIC 5 ML ORAL LIQUID. PEG SCH (09:22)
--- NOTE | 2018-11-25 09:36 | PDOC ---
Infectious Disease Note Subjective Subjective s/p extubation yesterday Satting 100% on 2L o2 No fevers reported No BM ROS ROS unobtainable Vital Sign Vital Signs Vital Signs Date Time Temp Pulse Resp B/P (MAP) Pulse Ox O2 Delivery O2 Flow Rate FiO2 11/25/18 09:22 74 109/68 11/25/18 08:34 Nasal Cannula 2.0 11/25/18 06:00 34 99 11/25/18 04:00 98.0 98.0 Physical Exam PHYSICAL EXAM GENERAL: Sleeping, arouses to name HEENT: Pupils are equal and reactive. Oral cavity clear LUNGS: Clear HEART: S1, S2, irregular ABDOMEN: Soft, no apparent guarding. PEG tube - improved : Molina (11/20) EXTREMITIES: Without clubbing or cyanosis, no gross edema. 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, follows simple commands RIJ - clean Labs Lab Laboratory Tests Test 11/24/18 12:19 11/24/18 17:28 11/25/18 00:20 11/25/18 05:00 Glucose (Fingerstick) 103 mg/dL (70-99) 106 mg/dL (70-99) 91 mg/dL (70-99) White Blood Count 5.5 x10^3/uL (4.0-11.0) Red Blood Count 3.30 x10^6/uL (4.30-5.70) Hemoglobin 11.1 g/dL (13.0-17.5) Hematocrit 32.9 % (39.0-53.0) Mean Corpuscular Volume 100 fL (79-100) Mean Corpuscular Hemoglobin 34 pg (25-35) Mean Corpuscular Hemoglobin Concent 34 g/dL (31-37) Red Cell Distribution Width 13.1 % (11.5-14.5) Platelet Count 237 x10^3/uL (140-400) Neutrophils (%) (Auto) 73 % (31-73) Lymphocytes (%) (Auto) 15 % (24-48) Monocytes (%) (Auto) 9 % (0-9) Eosinophils (%) (Auto) 3 % (0-3) Basophils (%) (Auto) 1 % (0-3) Neutrophils # (Auto) 4.0 x10^3/uL (1.8-7.7) Lymphocytes # (Auto) 0.8 x10^3/uL (1.0-4.8) Monocytes # (Auto) 0.5 x10^3/uL (0.0-1.1) Eosinophils # (Auto) 0.2 x10^3/uL (0.0-0.7) Basophils # (Auto) 0.0 x10^3/uL (0.0-0.2) Sodium Level 143 mmol/L (136-145) Potassium Level 3.5 mmol/L (3.5-5.1) Chloride Level 107 mmol/L (98-107) Carbon Dioxide Level 31 mmol/L (21-32) Anion Gap 5 (6-14) Blood Urea Nitrogen 6 mg/dL (8-26) Creatinine 0.5 mg/dL (0.7-1.3) Estimated GFR (Cockcroft-Gault) 164.9 Glucose Level 120 mg/dL (70-99) Calcium Level 7.8 mg/dL (8.5-10.1) Micro 11/20/18 Blood Culture - Preliminary, Resulted NO GROWTH AFTER 3 DAY URINE CULTURE RES 1 Final No growth Objective Assessment Sepsis, present on admission on 11/20. improving Acute respiratory failure, s/p extubation 11/24 Leukocytosis - better Elevated troponin. LEVOFLOXACIN ALLERGY. Uncertain what happens when this is taken. A-fib Plan Plan of Care Continue Vanc and Zosyn for now. Vanc per pharmacy to manage Trough 18.6 Monitor renal function closely F/u labs and cults D/w nursing Poor prognosis Critically ill D/c Vanc - d/w Attending Co-Sign Attending Co-Sign The patient was seen and interviewed as well as examined at the bedside. The chart was reviewed. The case was discussed. Agree with the plan of care. HÉCTOR BHATIA APRN Nov 25, 2018 09:36 JAZIEL MONSALVE MD Nov 25, 2018 13:13
[2018-11-25] MEDS: VANCOMYCIN PER PHARMACY MC PRN (10:23)
[2018-11-25] MEDS: ANTI-COAG MONITOR BY PHARMACY. MC PRN (10:28)
--- NOTE | 2018-11-25 12:05 | PDOC ---
PULMONARY PROGRESS NOTES Subjective extubated 11/24 off levo MS at baseline poor clearance of secretions Vitals Vital Signs Date Time Temp Pulse Resp B/P (MAP) Pulse Ox O2 Delivery O2 Flow Rate FiO2 11/25/18 10:00 64 26 100/65 (77) 99 Nasal Cannula 2.0 11/25/18 07:00 98.2 98.2 Comments does not follow commands General: Alert, No acute distress Lungs: Other (rhonchi upper chest) Cardiovascular: S1 Abdomen: Soft, Other (mildly tender) Neuro Exam: Alert Extremities: Other (trace edema) Skin: Warm Labs Laboratory Tests Test 11/23/18 16:52 11/24/18 05:55 11/24/18 07:30 11/24/18 09:26 Glucose (Fingerstick) 75 mg/dL (70-99) White Blood Count 4.6 x10^3/uL (4.0-11.0) Red Blood Count 2.97 x10^6/uL (4.30-5.70) Hemoglobin 10.2 g/dL (13.0-17.5) Hematocrit 29.5 % (39.0-53.0) Mean Corpuscular Volume 99 fL (79-100) Mean Corpuscular Hemoglobin 34 pg (25-35) Mean Corpuscular Hemoglobin Concent 35 g/dL (31-37) Red Cell Distribution Width 12.9 % (11.5-14.5) Platelet Count 208 x10^3/uL (140-400) Neutrophils (%) (Auto) 71 % (31-73) Lymphocytes (%) (Auto) 16 % (24-48) Monocytes (%) (Auto) 10 % (0-9) Eosinophils (%) (Auto) 3 % (0-3) Basophils (%) (Auto) 1 % (0-3) Neutrophils # (Auto) 3.2 x10^3/uL (1.8-7.7) Lymphocytes # (Auto) 0.7 x10^3/uL (1.0-4.8) Monocytes # (Auto) 0.4 x10^3/uL (0.0-1.1) Eosinophils # (Auto) 0.1 x10^3/uL (0.0-0.7) Basophils # (Auto) 0.0 x10^3/uL (0.0-0.2) Sodium Level 141 mmol/L (136-145) Potassium Level 3.5 mmol/L (3.5-5.1) Chloride Level 107 mmol/L (98-107) Carbon Dioxide Level 28 mmol/L (21-32) Anion Gap 6 (6-14) Blood Urea Nitrogen 8 mg/dL (8-26) Creatinine 0.6 mg/dL (0.7-1.3) Estimated GFR (Cockcroft-Gault) 133.6 Glucose Level 104 mg/dL (70-99) Calcium Level 7.6 mg/dL (8.5-10.1) Vancomycin Level Trough 18.6 mcg/mL (10.0-20.0) Vancomycin Last Dose Date 11/23/18 Vancomycin Last Dose Time 1900 O2 Saturation 98 % (92-99) 98 % (92-99) Arterial Blood pH 7.40 (7.35-7.45) 7.43 (7.35-7.45) Arterial Blood pCO2 at Patient Temp 44 mmHg (35-46) 40 mmHg (35-46) Arterial Blood pO2 at Patient Temp 110 mmHg (65-108) 114 mmHg (65-108) Arterial Blood HCO3 27 mmol/L (21-28) 26 mmol/L (21-28) Arterial Blood Base Excess 1 mmol/L (-3-3) 1 mmol/L (-3-3) FiO2 40 40 cpap Test 11/24/18 12:19 11/24/18 17:28 11/25/18 00:20 11/25/18 05:00 Glucose (Fingerstick) 103 mg/dL (70-99) 106 mg/dL (70-99) 91 mg/dL (70-99) White Blood Count 5.5 x10^3/uL (4.0-11.0) Red Blood Count 3.30 x10^6/uL (4.30-5.70) Hemoglobin 11.1 g/dL (13.0-17.5) Hematocrit 32.9 % (39.0-53.0) Mean Corpuscular Volume 100 fL (79-100) Mean Corpuscular Hemoglobin 34 pg (25-35) Mean Corpuscular Hemoglobin Concent 34 g/dL (31-37) Red Cell Distribution Width 13.1 % (11.5-14.5) Platelet Count 237 x10^3/uL (140-400) Neutrophils (%) (Auto) 73 % (31-73) Lymphocytes (%) (Auto) 15 % (24-48) Monocytes (%) (Auto) 9 % (0-9) Eosinophils (%) (Auto) 3 % (0-3) Basophils (%) (Auto) 1 % (0-3) Neutrophils # (Auto) 4.0 x10^3/uL (1.8-7.7) Lymphocytes # (Auto) 0.8 x10^3/uL (1.0-4.8) Monocytes # (Auto) 0.5 x10^3/uL (0.0-1.1) Eosinophils # (Auto) 0.2 x10^3/uL (0.0-0.7) Basophils # (Auto) 0.0 x10^3/uL (0.0-0.2) Sodium Level 143 mmol/L (136-145) Potassium Level 3.5 mmol/L (3.5-5.1) Chloride Level 107 mmol/L (98-107) Carbon Dioxide Level 31 mmol/L (21-32) Anion Gap 5 (6-14) Blood Urea Nitrogen 6 mg/dL (8-26) Creatinine 0.5 mg/dL (0.7-1.3) Estimated GFR (Cockcroft-Gault) 164.9 Glucose Level 120 mg/dL (70-99) Calcium Level 7.8 mg/dL (8.5-10.1) Laboratory Tests Test 11/24/18 12:19 11/24/18 17:28 11/25/18 00:20 11/25/18 05:00 Glucose (Fingerstick) 103 mg/dL (70-99) 106 mg/dL (70-99) 91 mg/dL (70-99) White Blood Count 5.5 x10^3/uL (4.0-11.0) Red Blood Count 3.30 x10^6/uL (4.30-5.70) Hemoglobin 11.1 g/dL (13.0-17.5) Hematocrit 32.9 % (39.0-53.0) Mean Corpuscular Volume 100 fL (79-100) Mean Corpuscular Hemoglobin 34 pg (25-35) Mean Corpuscular Hemoglobin Concent 34 g/dL (31-37) Red Cell Distribution Width 13.1 % (11.5-14.5) Platelet Count 237 x10^3/uL (140-400) Neutrophils (%) (Auto) 73 % (31-73) Lymphocytes (%) (Auto) 15 % (24-48) Monocytes (%) (Auto) 9 % (0-9) Eosinophils (%) (Auto) 3 % (0-3) Basophils (%) (Auto) 1 % (0-3) Neutrophils # (Auto) 4.0 x10^3/uL (1.8-7.7) Lymphocytes # (Auto) 0.8 x10^3/uL (1.0-4.8) Monocytes # (Auto) 0.5 x10^3/uL (0.0-1.1) Eosinophils # (Auto) 0.2 x10^3/uL (0.0-0.7) Basophils # (Auto) 0.0 x10^3/uL (0.0-0.2) Sodium Level 143 mmol/L (136-145) Potassium Level 3.5 mmol/L (3.5-5.1) Chloride Level 107 mmol/L (98-107) Carbon Dioxide Level 31 mmol/L (21-32) Anion Gap 5 (6-14) Blood Urea Nitrogen 6 mg/dL (8-26) Creatinine 0.5 mg/dL (0.7-1.3) Estimated GFR (Cockcroft-Gault) 164.9 Glucose Level 120 mg/dL (70-99) Calcium Level 7.8 mg/dL (8.5-10.1) Medications Active Scripts Medications Dose Route/Sig Max Daily Dose Days Date Category Tramadol Hcl 50 Mg Tablet 50 Mg PO PRN Q6HRS PRN 11/15/18 Rx Zyvox (Linezolid) 600 Mg Tablet 600 Mg PO BID 11/15/18 Rx Mupirocin Cream (Mupirocin) 15 Gm Cream..g. 1 Justina TP TID PRN 11/10/18 Reported Guaifenesin 100 Mg/5 Ml Liquid 100 Mg PO Q8HRS PRN 11/10/18 Reported Fluticasone Propionate Nasal [place] (Fluticasone Propionate) 16 Gm [place].susp 2 [place] NS DAILY 7/25/19 Reported Claritin (Loratadine) 10 Mg Capsule 10 Mg PO DAILY PRN 11/10/18 Reported Stomach Relief (Bismuth Subsalicylate) 262 Mg/15 Ml Oral.susp 262 Mg PEG Q6HRS PRN 11/10/18 Reported Artificial Tears Eye Drops (Dextran 70/Hypromellose) 15 Ml Drops 1 Drop EACHEYE QID PRN 11/10/18 Reported Albuterol Sulfate Neb Soln (Albuterol Sulfate) 2.5 Mg/3 Ml Vial.neb 2.5 Mg NEB Q8HRS PRN 11/10/18 Reported Proair Hfa Inhaler (Albuterol Sulfate) 8.5 Gm Hfa.aer.ad 1 Puff INH PRN Q6HRS PRN 08/08/16 Rx Azithromycin Tablet (Azithromycin) 250 Mg Tablet 1 Pkg PO UD 08/08/16 Rx Impression . 1. Acute respiratory failure, multifactorial. Extubated 11/24 2. Aspiration pneumonia. 3. Suspect gram-negative, possibly gram-positive and anaerobes. 4. Septic shock. resolved 5. Underlying dementia and depression. 6. Type 2 diabetes. 7. Gastroesophageal reflux. 8. Status post PEG tube placement in the past. 9. Multiple other comorbidities as indicated above. 10. Elevated troponin. 11.h/o TBI, with progressive dementia 12. 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 1. extubated. MS at baseline. does not communicate. 2. Continue coverage for both gram-positive and gram-negative organisms. 3. Leave up to PCP to consider vascular surgery input 4. off pressor 5. TF via PEG 6. abdomen and pelvis.CT REVIEWED 7. Cardiology rec 8. Needs prn suction. cannot clear secretions d/w in detail reg code status 8/8. she will let us know today today about DNR/DNI d/w RN/ transfer to floor RIKA MARQUEZ MD Nov 25, 2018 12:05
--- NOTE | 2018-11-25 13:11 | PDOC ---
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 History of Present Illness History of Present Illness 11/25/18 Pt seen and examined in ICU Satting 99% 2L O2 per NC Pleasantly confused Molina to BSD DW DW RN 11/24/18 Pt seen and examined in ICU Molina to BSD Pt successfully extubated Left upper quadrant peg with some breakdown DW Dr. Tara ANDREWS RN 11/23/18 Pt seen and examined in ICU Vent settings: AC/14/450/40% with 5 of PEEP Satting at 100% ABG pH 7.4 Molina to BSD 11/22/18 Pt seen and examined in ICU Pt is intubated Sedated with Verced Vent settings: AC/14/450/40% with 5 of PEP Satting at 100% ABG pH 7.39 JULIANA RN Vitals/I&O Vitals/I&O: Vital Signs Date Time Temp Pulse Resp B/P (MAP) Pulse Ox O2 Delivery O2 Flow Rate FiO2 11/25/18 10:00 64 26 100/65 (77) 99 Nasal Cannula 2.0 11/25/18 07:00 98.2 98.2 I & O 11/24/18 11/24/18 11/25/18 14:59 22:59 06:59 Intake Total 360 ml 1135 ml 2100 ml Output Total 891 ml 1895 ml 1760 ml Balance -531 ml -760 ml 340 ml Physical Exam Physical Exam: GENERAL: Sleeping, arouses to name HEENT: Pupils are equal and reactive. Oral cavity clear LUNGS: Clear HEART: S1, S2, irregular ABDOMEN: Soft, no apparent guarding. PEG tube - improved : Molina (11/20) EXTREMITIES: Without clubbing or cyanosis, no gross edema. 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 RIJ - clean General: Alert, Oriented X3, No acute distress Heart: Regular rate, Normal S1, Normal S2 Lungs: Other (rhonchi upper chest) Abdomen: Normal bowel sounds, No masses Extremities: No cyanosis, No edema Skin: No rashes, No significant lesion Labs Labs: Laboratory Tests Test 11/24/18 17:28 11/25/18 00:20 11/25/18 05:00 Glucose (Fingerstick) 106 mg/dL (70-99) 91 mg/dL (70-99) White Blood Count 5.5 x10^3/uL (4.0-11.0) Red Blood Count 3.30 x10^6/uL (4.30-5.70) Hemoglobin 11.1 g/dL (13.0-17.5) Hematocrit 32.9 % (39.0-53.0) Mean Corpuscular Volume 100 fL (79-100) Mean Corpuscular Hemoglobin 34 pg (25-35) Mean Corpuscular Hemoglobin Concent 34 g/dL (31-37) Red Cell Distribution Width 13.1 % (11.5-14.5) Platelet Count 237 x10^3/uL (140-400) Neutrophils (%) (Auto) 73 % (31-73) Lymphocytes (%) (Auto) 15 % (24-48) Monocytes (%) (Auto) 9 % (0-9) Eosinophils (%) (Auto) 3 % (0-3) Basophils (%) (Auto) 1 % (0-3) Neutrophils # (Auto) 4.0 x10^3/uL (1.8-7.7) Lymphocytes # (Auto) 0.8 x10^3/uL (1.0-4.8) Monocytes # (Auto) 0.5 x10^3/uL (0.0-1.1) Eosinophils # (Auto) 0.2 x10^3/uL (0.0-0.7) Basophils # (Auto) 0.0 x10^3/uL (0.0-0.2) Sodium Level 143 mmol/L (136-145) Potassium Level 3.5 mmol/L (3.5-5.1) Chloride Level 107 mmol/L (98-107) Carbon Dioxide Level 31 mmol/L (21-32) Anion Gap 5 (6-14) Blood Urea Nitrogen 6 mg/dL (8-26) Creatinine 0.5 mg/dL (0.7-1.3) Estimated GFR (Cockcroft-Gault) 164.9 Glucose Level 120 mg/dL (70-99) Calcium Level 7.8 mg/dL (8.5-10.1) Review of Systems Review of Systems: Denies [place] Denies N/V/D Assessment and Plan Assessmemt and Plan Problems Medical Problems: (1) Acute respiratory failure Status: Acute (2) Aspiration pneumonia Status: Acute (3) Atrial fibrillation with RVR Status: Acute (4) COPD (chronic obstructive pulmonary disease) Status: Chronic (5) Diabetes mellitus Status: Chronic (6) Diverticulitis Status: Chronic (7) GERD (gastroesophageal reflux disease) Status: Chronic (8) Hypomagnesemia Status: Acute (9) Kidney stones Status: Chronic (10) Sepsis Status: Acute (11) UTI (urinary tract infection) Status: Acute Assessment Sepsis Aspiration pneumonia COPD SOB Dementia Depression DM Diverticulitis GERD Kidney stones TBI from previous suicide attempt Plan ICU monitoring Peg feeds PTOT Speech therapy Labs Home meds NTS Total time 32 minutes Comment Review of Relevant I have reviewed the following items lew (where applicable) has been applied. Medications: Current Medications Medications (Trade) Dose Ordered Sig/Zak Route PRN Reason Start Time Stop Time Status Last Admin Dose Admin Multivitamins (Thera-Plus Oral Liquid) 5 ml DAILY PEG 11/24/18 13:30 11/25/18 09:22 Metoprolol Tartrate (Lopressor) 12.5 mg BID PO 11/24/18 14:15 11/25/18 09:22 FADI BEARD III DO Nov 25, 2018 13:11
--- NOTE | 2018-11-25 14:49 | PDOC ---
PROGRESS NOTES Subjective Subjective s/p extubation, confused but comfortable Objective Objective Vital Signs Date Time Temp Pulse Resp B/P (MAP) Pulse Ox O2 Delivery O2 Flow Rate FiO2 11/25/18 12:00 98.2 70 105/65 (78) 99 Nasal Cannula 2.0 98.2 11/25/18 10:00 26 Intake and Output 11/25/18 07:00 Intake Total 3595 ml Output Total 4516 ml Balance -921 ml Intake Oral 0 ml IV Total 1350 ml Tube Feeding 1765 ml Blood Product IV Normal Saline Flush 120 ml Other 360 ml Output Urine Total 4515 ml Stool Total 1 ml Gastric Drainage Total 0 ml Physical Exam Abdomen: Normal bowel sounds, No masses Heart: Regular rate, Normal S1, Normal S2 Extremities: No cyanosis, No edema General: Alert, No acute distress Lungs: Other (decreased air entry basis) Neck: No JVD Skin: No rashes, No significant lesion Assessment Assessment 1. Acute respiratory failure: multifactorial. extubated 2. Aspiration PNA; as per ID 3. Septic shock; off pressor support. BP stable 4. Elevated troponin; most probably type II, demand ischemia. Recent echo with preserved LV systolic function 5. AFIB with RVR; heart rate well-controlled. 6. Hypomagnesemia; replaced 7. Hx of TBI/anoxic brain injury 8. Debility/dysphagia; s/p G-tube Recommendations Continue BB for rate control Eliqius for stroke prevention Follow pulmonary recommendation Plan Plan of Care Problems Medical Problems: (1) Acute respiratory failure Status: Acute (2) Aspiration pneumonia Status: Acute (3) Atrial fibrillation with RVR Status: Acute (4) COPD (chronic obstructive pulmonary disease) Status: Chronic (5) Diabetes mellitus Status: Chronic (6) Diverticulitis Status: Chronic (7) GERD (gastroesophageal reflux disease) Status: Chronic (8) Hypomagnesemia Status: Acute (9) Kidney stones Status: Chronic (10) Sepsis Status: Acute (11) UTI (urinary tract infection) Status: Acute Comment Review of Relevant I have reviewed the following items lew (where applicable) has been applied. Labs Laboratory Tests Test 11/24/18 17:28 11/25/18 00:20 11/25/18 05:00 Glucose (Fingerstick) 106 mg/dL (70-99) 91 mg/dL (70-99) White Blood Count 5.5 x10^3/uL (4.0-11.0) Red Blood Count 3.30 x10^6/uL (4.30-5.70) Hemoglobin 11.1 g/dL (13.0-17.5) Hematocrit 32.9 % (39.0-53.0) Mean Corpuscular Volume 100 fL (79-100) Mean Corpuscular Hemoglobin 34 pg (25-35) Mean Corpuscular Hemoglobin Concent 34 g/dL (31-37) Red Cell Distribution Width 13.1 % (11.5-14.5) Platelet Count 237 x10^3/uL (140-400) Neutrophils (%) (Auto) 73 % (31-73) Lymphocytes (%) (Auto) 15 % (24-48) Monocytes (%) (Auto) 9 % (0-9) Eosinophils (%) (Auto) 3 % (0-3) Basophils (%) (Auto) 1 % (0-3) Neutrophils # (Auto) 4.0 x10^3/uL (1.8-7.7) Lymphocytes # (Auto) 0.8 x10^3/uL (1.0-4.8) Monocytes # (Auto) 0.5 x10^3/uL (0.0-1.1) Eosinophils # (Auto) 0.2 x10^3/uL (0.0-0.7) Basophils # (Auto) 0.0 x10^3/uL (0.0-0.2) Sodium Level 143 mmol/L (136-145) Potassium Level 3.5 mmol/L (3.5-5.1) Chloride Level 107 mmol/L (98-107) Carbon Dioxide Level 31 mmol/L (21-32) Anion Gap 5 (6-14) Blood Urea Nitrogen 6 mg/dL (8-26) Creatinine 0.5 mg/dL (0.7-1.3) Estimated GFR (Cockcroft-Gault) 164.9 Glucose Level 120 mg/dL (70-99) Calcium Level 7.8 mg/dL (8.5-10.1) Microbiology 11/21/18 Blood Culture - Preliminary, Resulted NO GROWTH AFTER 4 DAYS 11/20/18 Urine Culture - Final, Complete 11/20/18 Urine Culture Result 1 (KASIE) - Final, Complete Vitals/I & O Vital Sign - Last 24 Hours 11/24/18 11/24/18 11/24/18 11/24/18 15:00 16:00 17:00 17:57 Temp 98.3 98.3 Pulse 103 96 106 85 Resp 30 26 36 38 B/P (MAP) 119/65 (83) 103/58 (73) 101/52 (68) 93/63 (73) Pulse Ox 91 95 95 98 O2 Delivery Nasal Cannula Nasal Cannula Nasal Cannula Nasal Cannula O2 Flow Rate 4.0 4.0 4.0 4.0 11/24/18 11/24/18 11/24/18 11/24/18 19:00 20:00 21:00 22:00 Temp 98.1 98.1 Pulse 96 96 98 102 Resp 41 41 43 41 B/P (MAP) 107/67 (80) 107/69 (82) 116/60 (78) 114/67 (83) Pulse Ox 98 98 97 97 O2 Delivery Nasal Cannula Nasal Cannula Nasal Cannula Nasal Cannula O2 Flow Rate 2.0 2.0 2.0 2.0 11/24/18 11/25/18 11/25/18 11/25/18 23:00 00:00 00:08 01:01 Temp 98.3 98.3 Pulse 94 96 102 85 Resp 40 40 36 B/P (MAP) 110/77 (88) 120/69 (86) 120/69 102/68 (79) Pulse Ox 98 99 98 O2 Delivery Nasal Cannula Nasal Cannula Nasal Cannula O2 Flow Rate 2.0 2.0 2.0 11/25/18 11/25/18 11/25/18 11/25/18 02:00 03:00 04:00 05:00 Temp 98.0 98.0 Pulse 93 80 76 78 Resp 35 39 37 36 B/P (MAP) 122/71 (88) 114/76 (89) 104/67 (79) 122/71 (88) Pulse Ox 99 99 99 99 O2 Delivery Nasal Cannula Nasal Cannula Nasal Cannula Nasal Cannula O2 Flow Rate 2.0 2.0 2.0 2.0 11/25/18 11/25/18 11/25/18 11/25/18 06:00 07:00 08:00 08:34 Temp 98.2 98.2 Pulse 74 78 86 Resp 34 34 30 B/P (MAP) 109/68 (82) 106/68 (81) 121/71 (88) Pulse Ox 99 99 99 O2 Delivery Nasal Cannula Nasal Cannula Nasal Cannula Nasal Cannula O2 Flow Rate 2.0 2.0 2.0 2.0 11/25/18 11/25/18 11/25/18 11/25/18 09:00 09:22 10:00 12:00 Temp 98.2 98.2 Pulse 76 74 64 70 Resp 24 26 B/P (MAP) 126/73 (90) 109/68 100/65 (77) 105/65 (78) Pulse Ox 99 99 99 O2 Delivery Nasal Cannula Nasal Cannula Nasal Cannula O2 Flow Rate 2.0 2.0 2.0 Intake and Output 11/24/18 11/24/18 11/25/18 15:00 23:00 07:00 Intake Total 360 ml 1175 ml 2060 ml Output Total 1011 ml 1945 ml 1560 ml Balance -651 ml -770 ml 500 ml KITTY MENDOZA MD Nov 25, 2018 14:49
[2018-11-26 03:30] VITALS: BP 127/83
[2018-11-26 06:00] LABS: BASO % 1 % (0-3); EOS # 0.2 x10^3/uL (0.0-0.7); EOS % 4 % (0-3); HEMATOCRIT 33.8 % (39.0-53.0); HEMOGLOBIN 11.8 g/dL (13.0-17.5); LYMPH # 0.7 x10^3/uL (1.0-4.8); LYMPH % 13 % (24-48); MEAN CORPUSCULAR HEMOGLOBIN 35 pg (25-35); MEAN CORPUSCULAR HGB CONC 35 g/dL (31-37); MEAN CORPUSCULAR VOLUME 100 fL (79-100); MONO # 0.4 x10^3/uL (0.0-1.1); MONO % 8 % (0-9); NEUT # 4.4 x10^3/uL (1.8-7.7); NEUT % 76 % (31-73); PLATELET COUNT 256 x10^3/uL (140-400); RED CELL DISTRIBUTION WIDTH 13.1 % (11.5-14.5); WHITE BLOOD COUNT 5.8 x10^3/uL (4.0-11.0)
[2018-11-26] MEDS: PIPERACILLIN/TAZOBACTAM 3.375 GM in IV NORMAL SALINE 50ML 50 ML IV SCH ×4 (06:05→23:44)
[2018-11-26] MEDS: IV NORMAL SALINE 1000ML BAG 1,000 ML IV SCH ×3 (06:28→17:24)
[2018-11-26 06:39] LABS: CALCIUM 8.3 mg/dL (8.5-10.1); CREATININE 0.6 mg/dL (0.7-1.3); GFR 133.6; POTASSIUM 3.8 mmol/L (3.5-5.1)
--- NOTE | 2018-11-26 07:11 | PDOC ---
PULMONARY PROGRESS NOTES Subjective extubated 11/24, doesnt answer my Qs but follows my commands has cough w sputum, poor clearance of secretion MS at baseline Vitals Vital Signs Date Time Temp Pulse Resp B/P (MAP) Pulse Ox O2 Delivery O2 Flow Rate FiO2 11/26/18 03:30 98.9 86 24 127/83 (98) 97 Nasal Cannula 2.0 98.9 Comments does not follow commands General: Alert, No acute distress Lungs: Crackles, Other (rhonchi upper chest) Cardiovascular: S1, S2 Abdomen: Soft, Other (mildly tender) Neuro Exam: Alert Extremities: Other (trace edema) Skin: Warm Labs Laboratory Tests Test 11/24/18 07:30 11/24/18 09:26 11/24/18 12:19 11/24/18 17:28 O2 Saturation 98 % (92-99) 98 % (92-99) Arterial Blood pH 7.40 (7.35-7.45) 7.43 (7.35-7.45) Arterial Blood pCO2 at Patient Temp 44 mmHg (35-46) 40 mmHg (35-46) Arterial Blood pO2 at Patient Temp 110 mmHg (65-108) 114 mmHg (65-108) Arterial Blood HCO3 27 mmol/L (21-28) 26 mmol/L (21-28) Arterial Blood Base Excess 1 mmol/L (-3-3) 1 mmol/L (-3-3) FiO2 40 40 cpap Glucose (Fingerstick) 103 mg/dL (70-99) 106 mg/dL (70-99) Test 11/25/18 00:20 11/25/18 05:00 11/26/18 05:45 Glucose (Fingerstick) 91 mg/dL (70-99) White Blood Count 5.5 x10^3/uL (4.0-11.0) 5.8 x10^3/uL (4.0-11.0) Red Blood Count 3.30 x10^6/uL (4.30-5.70) 3.40 x10^6/uL (4.30-5.70) Hemoglobin 11.1 g/dL (13.0-17.5) 11.8 g/dL (13.0-17.5) Hematocrit 32.9 % (39.0-53.0) 33.8 % (39.0-53.0) Mean Corpuscular Volume 100 fL (79-100) 100 fL (79-100) Mean Corpuscular Hemoglobin 34 pg (25-35) 35 pg (25-35) Mean Corpuscular Hemoglobin Concent 34 g/dL (31-37) 35 g/dL (31-37) Red Cell Distribution Width 13.1 % (11.5-14.5) 13.1 % (11.5-14.5) Platelet Count 237 x10^3/uL (140-400) 256 x10^3/uL (140-400) Neutrophils (%) (Auto) 73 % (31-73) 76 % (31-73) Lymphocytes (%) (Auto) 15 % (24-48) 13 % (24-48) Monocytes (%) (Auto) 9 % (0-9) 8 % (0-9) Eosinophils (%) (Auto) 3 % (0-3) 4 % (0-3) Basophils (%) (Auto) 1 % (0-3) 1 % (0-3) Neutrophils # (Auto) 4.0 x10^3/uL (1.8-7.7) 4.4 x10^3/uL (1.8-7.7) Lymphocytes # (Auto) 0.8 x10^3/uL (1.0-4.8) 0.7 x10^3/uL (1.0-4.8) Monocytes # (Auto) 0.5 x10^3/uL (0.0-1.1) 0.4 x10^3/uL (0.0-1.1) Eosinophils # (Auto) 0.2 x10^3/uL (0.0-0.7) 0.2 x10^3/uL (0.0-0.7) Basophils # (Auto) 0.0 x10^3/uL (0.0-0.2) 0.0 x10^3/uL (0.0-0.2) Sodium Level 143 mmol/L (136-145) 144 mmol/L (136-145) Potassium Level 3.5 mmol/L (3.5-5.1) 3.8 mmol/L (3.5-5.1) Chloride Level 107 mmol/L (98-107) 107 mmol/L (98-107) Carbon Dioxide Level 31 mmol/L (21-32) 34 mmol/L (21-32) Anion Gap 5 (6-14) 3 (6-14) Blood Urea Nitrogen 6 mg/dL (8-26) 8 mg/dL (8-26) Creatinine 0.5 mg/dL (0.7-1.3) 0.6 mg/dL (0.7-1.3) Estimated GFR (Cockcroft-Gault) 164.9 133.6 Glucose Level 120 mg/dL (70-99) 114 mg/dL (70-99) Calcium Level 7.8 mg/dL (8.5-10.1) 8.3 mg/dL (8.5-10.1) Laboratory Tests Test 11/26/18 05:45 White Blood Count 5.8 x10^3/uL (4.0-11.0) Red Blood Count 3.40 x10^6/uL (4.30-5.70) Hemoglobin 11.8 g/dL (13.0-17.5) Hematocrit 33.8 % (39.0-53.0) Mean Corpuscular Volume 100 fL (79-100) Mean Corpuscular Hemoglobin 35 pg (25-35) Mean Corpuscular Hemoglobin Concent 35 g/dL (31-37) Red Cell Distribution Width 13.1 % (11.5-14.5) Platelet Count 256 x10^3/uL (140-400) Neutrophils (%) (Auto) 76 % (31-73) Lymphocytes (%) (Auto) 13 % (24-48) Monocytes (%) (Auto) 8 % (0-9) Eosinophils (%) (Auto) 4 % (0-3) Basophils (%) (Auto) 1 % (0-3) Neutrophils # (Auto) 4.4 x10^3/uL (1.8-7.7) Lymphocytes # (Auto) 0.7 x10^3/uL (1.0-4.8) Monocytes # (Auto) 0.4 x10^3/uL (0.0-1.1) Eosinophils # (Auto) 0.2 x10^3/uL (0.0-0.7) Basophils # (Auto) 0.0 x10^3/uL (0.0-0.2) Sodium Level 144 mmol/L (136-145) Potassium Level 3.8 mmol/L (3.5-5.1) Chloride Level 107 mmol/L (98-107) Carbon Dioxide Level 34 mmol/L (21-32) Anion Gap 3 (6-14) Blood Urea Nitrogen 8 mg/dL (8-26) Creatinine 0.6 mg/dL (0.7-1.3) Estimated GFR (Cockcroft-Gault) 133.6 Glucose Level 114 mg/dL (70-99) Calcium Level 8.3 mg/dL (8.5-10.1) Medications Active Scripts Medications Dose Route/Sig Max Daily Dose Days Date Category Tramadol Hcl 50 Mg Tablet 50 Mg PO PRN Q6HRS PRN 11/15/18 Rx Zyvox (Linezolid) 600 Mg Tablet 600 Mg PO BID 11/15/18 Rx Mupirocin Cream (Mupirocin) 15 Gm Cream..g. 1 Justina TP TID PRN 11/10/18 Reported Guaifenesin 100 Mg/5 Ml Liquid 100 Mg PO Q8HRS PRN 11/10/18 Reported Fluticasone Propionate Nasal [place] (Fluticasone Propionate) 16 Gm [place].susp 2 [place] NS DAILY 11/10/18 Reported Claritin (Loratadine) 10 Mg Capsule 10 Mg PO DAILY PRN 11/10/18 Reported Stomach Relief (Bismuth Subsalicylate) 262 Mg/15 Ml Oral.susp 262 Mg PEG Q6HRS PRN 11/10/18 Reported Artificial Tears Eye Drops (Dextran 70/Hypromellose) 15 Ml Drops 1 Drop EACHEYE QID PRN 11/10/18 Reported Albuterol Sulfate Neb Soln (Albuterol Sulfate) 2.5 Mg/3 Ml Vial.neb 2.5 Mg NEB Q8HRS PRN 11/10/18 Reported Proair Hfa Inhaler (Albuterol Sulfate) 8.5 Gm Hfa.aer.ad 1 Puff INH PRN Q6HRS PRN 08/08/16 Rx Azithromycin Tablet (Azithromycin) 250 Mg Tablet 1 Pkg PO UD 08/08/16 Rx Impression . 1. Acute respiratory failure, multifactorial. Extubated 11/24 2. Aspiration pneumonia. 3. Suspect gram-negative, possibly gram-positive and anaerobes. 4. Septic shock. resolved 5. Underlying dementia and depression. 6. Type 2 diabetes. 7. Gastroesophageal reflux. 8. Status post PEG tube placement in the past. 9. Multiple other comorbidities as indicated above. 10. Elevated troponin. 11.h/o TBI, with progressive dementia 12. 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 1. extubated. MS at baseline. does not communicate. 2. Continue coverage for both gram-positive and gram-negative organisms. 3. Leave up to PCP to consider vascular surgery input 4. elevate hob 5. TF via PEG, npo 6. abdomen and pelvis.CT REVIEWED 7. Cardiology rec 8. Needs prn suction. cannot clear secretions dr gilbert d/w in detail reg code status on 11/24. she will let us know about DNR/DNI d/w RN/ LANG MCCARTHY MD Nov 26, 2018 07:11
[2018-11-26 08:02] VITALS: BP 126/71
[2018-11-26] MEDS: MULTIVITAMINS,THERAPEUTIC 5 ML ORAL LIQUID. PEG SCH (09:25)
[2018-11-26] MEDS: DOCUSATE 100 MG/10 ML SOLUTION. PO SCH ×2 (09:25→21:00)
[2018-11-26] MEDS: FAMOTIDINE 20 MG/2 ML VIAL IVP SCH (09:26)
[2018-11-26] MEDS: APIXABAN 5 MG TABLET. PO SCH ×2 (09:26→21:06)
[2018-11-26] MEDS: METOPROLOL TART IMMED RELEASE 25 MG TABLET. PO SCH ×2 (09:26→21:07)
[2018-11-26] MEDS: ASPIRIN CHEWABLE 81 MG TABLET. PO SCH (09:26)
[2018-11-26 11:13] VITALS: BP 130/74
--- NOTE | 2018-11-26 11:21 | PDOC ---
Infectious Disease Note Subjective Subjective Alert 2L o2 No fevers reported Tube feedings 50 ml ROS ROS Unobtainable Vital Sign Vital Signs Vital Signs Date Time Temp Pulse Resp B/P (MAP) Pulse Ox O2 Delivery O2 Flow Rate FiO2 11/26/18 11:13 98.4 70 24 130/74 (92) 98 Nasal Cannula 2.0 98.4 Physical Exam PHYSICAL EXAM GENERAL: Propped up in bed, opens eyes some to name, Alert HEENT: Oral cavity clear LUNGS: Clear anteriorly HEART: S1, S2, irregular ABDOMEN: Soft, PEG : Molina EXTREMITIES: No gross edema. 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 RIJ - clean Labs Lab Laboratory Tests Test 11/26/18 05:45 White Blood Count 5.8 x10^3/uL (4.0-11.0) Red Blood Count 3.40 x10^6/uL (4.30-5.70) Hemoglobin 11.8 g/dL (13.0-17.5) Hematocrit 33.8 % (39.0-53.0) Mean Corpuscular Volume 100 fL (79-100) Mean Corpuscular Hemoglobin 35 pg (25-35) Mean Corpuscular Hemoglobin Concent 35 g/dL (31-37) Red Cell Distribution Width 13.1 % (11.5-14.5) Platelet Count 256 x10^3/uL (140-400) Neutrophils (%) (Auto) 76 % (31-73) Lymphocytes (%) (Auto) 13 % (24-48) Monocytes (%) (Auto) 8 % (0-9) Eosinophils (%) (Auto) 4 % (0-3) Basophils (%) (Auto) 1 % (0-3) Neutrophils # (Auto) 4.4 x10^3/uL (1.8-7.7) Lymphocytes # (Auto) 0.7 x10^3/uL (1.0-4.8) Monocytes # (Auto) 0.4 x10^3/uL (0.0-1.1) Eosinophils # (Auto) 0.2 x10^3/uL (0.0-0.7) Basophils # (Auto) 0.0 x10^3/uL (0.0-0.2) Sodium Level 144 mmol/L (136-145) Potassium Level 3.8 mmol/L (3.5-5.1) Chloride Level 107 mmol/L (98-107) Carbon Dioxide Level 34 mmol/L (21-32) Anion Gap 3 (6-14) Blood Urea Nitrogen 8 mg/dL (8-26) Creatinine 0.6 mg/dL (0.7-1.3) Estimated GFR (Cockcroft-Gault) 133.6 Glucose Level 114 mg/dL (70-99) Calcium Level 8.3 mg/dL (8.5-10.1) Micro 11/20/18 Blood Culture - Preliminary, Resulted NO GROWTH AFTER 4 DAY URINE CULTURE RES 1 Final No growth Objective Assessment Sepsis, present on admission on 11/20. improving. cultures neg Acute respiratory failure, s/p extubation 11/24 Leukocytosis - better Elevated troponin. LEVOFLOXACIN ALLERGY. Uncertain what happens when this is taken. A-fib Debility Plan Plan of Care Continue Zosyn (11/21) for now Off vanc Monitor labs D/w nursing Poor prognosis Attending Co-Sign Attending Co-Sign The patient was seen and interviewed as well as examined at the bedside. The chart was reviewed. The case was discussed. Agree with the plan of care. HÉCTOR BHATIA APRN Nov 26, 2018 11:21 JAZIEL MONSALVE MD Nov 26, 2018 13:00
[2018-11-26 14:40] VITALS: BP 133/58
--- NOTE | 2018-11-26 18:15 | PDOC ---
PROGRESS NOTES Chief Complaint Chief Complaint Sepsis Acute respiratory failure, multifactorial. Extubated 11/24 Aspiration pneumonia COPD SOB Dementia Depression DM Diverticulitis GERD Kidney stones TBI from previous suicide attempt Type 2 diabetes. Status post PEG tube placement in the past. Elevated troponin. 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 does not communicate. continue TF via PEG, npo remains full code for now 11/25/18 Pt seen and examined in ICU Satting 99% 2L O2 per NC Pleasantly confused Molina to BSD DW DW RN 11/24/18 Pt seen and examined in ICU Molina to BSD Pt successfully extubated Left upper quadrant peg with some breakdown DW Dr. Tara ANDREWS RN 11/23/18 Pt seen and examined in ICU Vent settings: AC/14/450/40% with 5 of PEEP Satting at 100% ABG pH 7.4 Molina to BSD 11/22/18 Pt seen and examined in ICU Pt is intubated Sedated with Verced Vent settings: AC/14/450/40% with 5 of PEP Satting at 100% ABG pH 7.39 JULIANA RN Vitals Vitals Vital Signs Date Time Temp Pulse Resp B/P (MAP) Pulse Ox O2 Delivery O2 Flow Rate FiO2 11/26/18 14:40 99.0 85 24 133/58 (83) 97 Nasal Cannula 2.0 99.0 Physical Exam Physical Exam GENERAL: Propped up in bed, opens eyes some to name, Alert HEENT: Oral cavity clear LUNGS: Clear anteriorly HEART: S1, S2, irregular ABDOMEN: Soft, PEG : Molina EXTREMITIES: No gross edema. 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 RIJ - clean General: Alert, No acute distress Heart: Regular rate, Normal S1, Normal S2 Lungs: Crackles, Other (rhonchi upper chest) Abdomen: Normal bowel sounds, No masses Extremities: No cyanosis, No edema Skin: No rashes, No significant lesion Labs LABS Laboratory Tests Test 11/26/18 05:45 White Blood Count 5.8 x10^3/uL (4.0-11.0) Red Blood Count 3.40 x10^6/uL (4.30-5.70) Hemoglobin 11.8 g/dL (13.0-17.5) Hematocrit 33.8 % (39.0-53.0) Mean Corpuscular Volume 100 fL (79-100) Mean Corpuscular Hemoglobin 35 pg (25-35) Mean Corpuscular Hemoglobin Concent 35 g/dL (31-37) Red Cell Distribution Width 13.1 % (11.5-14.5) Platelet Count 256 x10^3/uL (140-400) Neutrophils (%) (Auto) 76 % (31-73) Lymphocytes (%) (Auto) 13 % (24-48) Monocytes (%) (Auto) 8 % (0-9) Eosinophils (%) (Auto) 4 % (0-3) Basophils (%) (Auto) 1 % (0-3) Neutrophils # (Auto) 4.4 x10^3/uL (1.8-7.7) Lymphocytes # (Auto) 0.7 x10^3/uL (1.0-4.8) Monocytes # (Auto) 0.4 x10^3/uL (0.0-1.1) Eosinophils # (Auto) 0.2 x10^3/uL (0.0-0.7) Basophils # (Auto) 0.0 x10^3/uL (0.0-0.2) Sodium Level 144 mmol/L (136-145) Potassium Level 3.8 mmol/L (3.5-5.1) Chloride Level 107 mmol/L (98-107) Carbon Dioxide Level 34 mmol/L (21-32) Anion Gap 3 (6-14) Blood Urea Nitrogen 8 mg/dL (8-26) Creatinine 0.6 mg/dL (0.7-1.3) Estimated GFR (Cockcroft-Gault) 133.6 Glucose Level 114 mg/dL (70-99) Calcium Level 8.3 mg/dL (8.5-10.1) Assessment and Plan Assessmemt and Plan Problems Medical Problems: (1) Acute respiratory failure Status: Acute (2) Aspiration pneumonia Status: Acute (3) Atrial fibrillation with RVR Status: Acute (4) COPD (chronic obstructive pulmonary disease) Status: Chronic (5) Diabetes mellitus Status: Chronic (6) Diverticulitis Status: Chronic (7) GERD (gastroesophageal reflux disease) Status: Chronic (8) Hypomagnesemia Status: Acute (9) Kidney stones Status: Chronic (10) Sepsis Status: Acute (11) UTI (urinary tract infection) Status: Acute Comment Review of Relevant I have reviewed the following items lew (where applicable) has been applied. Labs Laboratory Tests Test 11/25/18 00:20 11/25/18 05:00 11/26/18 05:45 Glucose (Fingerstick) 91 mg/dL (70-99) White Blood Count 5.5 x10^3/uL (4.0-11.0) 5.8 x10^3/uL (4.0-11.0) Red Blood Count 3.30 x10^6/uL (4.30-5.70) 3.40 x10^6/uL (4.30-5.70) Hemoglobin 11.1 g/dL (13.0-17.5) 11.8 g/dL (13.0-17.5) Hematocrit 32.9 % (39.0-53.0) 33.8 % (39.0-53.0) Mean Corpuscular Volume 100 fL (79-100) 100 fL (79-100) Mean Corpuscular Hemoglobin 34 pg (25-35) 35 pg (25-35) Mean Corpuscular Hemoglobin Concent 34 g/dL (31-37) 35 g/dL (31-37) Red Cell Distribution Width 13.1 % (11.5-14.5) 13.1 % (11.5-14.5) Platelet Count 237 x10^3/uL (140-400) 256 x10^3/uL (140-400) Neutrophils (%) (Auto) 73 % (31-73) 76 % (31-73) Lymphocytes (%) (Auto) 15 % (24-48) 13 % (24-48) Monocytes (%) (Auto) 9 % (0-9) 8 % (0-9) Eosinophils (%) (Auto) 3 % (0-3) 4 % (0-3) Basophils (%) (Auto) 1 % (0-3) 1 % (0-3) Neutrophils # (Auto) 4.0 x10^3/uL (1.8-7.7) 4.4 x10^3/uL (1.8-7.7) Lymphocytes # (Auto) 0.8 x10^3/uL (1.0-4.8) 0.7 x10^3/uL (1.0-4.8) Monocytes # (Auto) 0.5 x10^3/uL (0.0-1.1) 0.4 x10^3/uL (0.0-1.1) Eosinophils # (Auto) 0.2 x10^3/uL (0.0-0.7) 0.2 x10^3/uL (0.0-0.7) Basophils # (Auto) 0.0 x10^3/uL (0.0-0.2) 0.0 x10^3/uL (0.0-0.2) Sodium Level 143 mmol/L (136-145) 144 mmol/L (136-145) Potassium Level 3.5 mmol/L (3.5-5.1) 3.8 mmol/L (3.5-5.1) Chloride Level 107 mmol/L (98-107) 107 mmol/L (98-107) Carbon Dioxide Level 31 mmol/L (21-32) 34 mmol/L (21-32) Anion Gap 5 (6-14) 3 (6-14) Blood Urea Nitrogen 6 mg/dL (8-26) 8 mg/dL (8-26) Creatinine 0.5 mg/dL (0.7-1.3) 0.6 mg/dL (0.7-1.3) Estimated GFR (Cockcroft-Gault) 164.9 133.6 Glucose Level 120 mg/dL (70-99) 114 mg/dL (70-99) Calcium Level 7.8 mg/dL (8.5-10.1) 8.3 mg/dL (8.5-10.1) Laboratory Tests Test 11/26/18 05:45 White Blood Count 5.8 x10^3/uL (4.0-11.0) Red Blood Count 3.40 x10^6/uL (4.30-5.70) Hemoglobin 11.8 g/dL (13.0-17.5) Hematocrit 33.8 % (39.0-53.0) Mean Corpuscular Volume 100 fL (79-100) Mean Corpuscular Hemoglobin 35 pg (25-35) Mean Corpuscular Hemoglobin Concent 35 g/dL (31-37) Red Cell Distribution Width 13.1 % (11.5-14.5) Platelet Count 256 x10^3/uL (140-400) Neutrophils (%) (Auto) 76 % (31-73) Lymphocytes (%) (Auto) 13 % (24-48) Monocytes (%) (Auto) 8 % (0-9) Eosinophils (%) (Auto) 4 % (0-3) Basophils (%) (Auto) 1 % (0-3) Neutrophils # (Auto) 4.4 x10^3/uL (1.8-7.7) Lymphocytes # (Auto) 0.7 x10^3/uL (1.0-4.8) Monocytes # (Auto) 0.4 x10^3/uL (0.0-1.1) Eosinophils # (Auto) 0.2 x10^3/uL (0.0-0.7) Basophils # (Auto) 0.0 x10^3/uL (0.0-0.2) Sodium Level 144 mmol/L (136-145) Potassium Level 3.8 mmol/L (3.5-5.1) Chloride Level 107 mmol/L (98-107) Carbon Dioxide Level 34 mmol/L (21-32) Anion Gap 3 (6-14) Blood Urea Nitrogen 8 mg/dL (8-26) Creatinine 0.6 mg/dL (0.7-1.3) Estimated GFR (Cockcroft-Gault) 133.6 Glucose Level 114 mg/dL (70-99) Calcium Level 8.3 mg/dL (8.5-10.1) Microbiology 11/21/18 Blood Culture - Final, Complete NO GROWTH AFTER 5 DAYS 11/20/18 Urine Culture - Final, Complete 11/20/18 Urine Culture Result 1 (KASIE) - Final, Complete Medications Current Medications Sodium Chloride (NORMAL SALINE FLUSH for STERILE FIELD) 10 ml STK-MED ONCE .ROUTE ; Start 11/20/18 at 22:37; Stop 11/20/18 at 22:38; Status DC Propofol 100 ml @ As Directed STK-MED ONCE IV ; Start 11/20/18 at 22:40; Stop 11/20/18 at 22:41; Status DC Norepinephrine Bitartrate 250 ml @ 0.188 mls/ hr 1X ONCE IV ; Start 11/20/18 at 23:00; Stop 11/20/18 at 23:01; Status Cancel Piperacillin Sod/ Tazobactam Sod (Zosyn Per Pharmacy) 1 each PRN DAILY PRN MC SEE COMMENTS; Start 11/20/18 at 23:00 Vancomycin HCl (Vanco Per Pharmacy) 1 each PRN DAILY PRN MC SEE COMMENTS Last administered on 11/25/18at 10:27; Start 11/20/18 at 23:00; Stop 11/25/18 at 13:13; Status DC Sodium Chloride 1,000 ml @ 1,000 mls/hr Q1H IV Last administered on 11/21/18at 00:50; Start 11/20/18 at 23:00; Stop 11/21/18 at 01:14; Status DC Norepinephrine Bitartrate 250 ml @ 0 mls/hr 1X ONCE IV Last administered on 11/20/18at 23:26; Start 11/20/18 at 23:30; Stop 11/20/18 at 23:31; Status DC Propofol (Diprivan) 200 mg 1X ONCE IV ; Start 11/20/18 at 23:30; Stop 11/20/18 at 23:31; Status DC Propofol 50 ml @ 0 mls/hr 1X ONCE IV Last administered on 11/20/18at 23:36; Start 11/20/18 at 23:45; Stop 11/20/18 at 23:46; Status DC Sodium Chloride 1,000 ml @ 125 mls/hr 1X ONCE IV Last administered on 11/21/18at 01:12; Start 11/21/18 at 01:00; Stop 11/21/18 at 08:59; Status DC Vancomycin HCl 2 gm/Sodium Chloride 500 ml @ 250 mls/hr 1X ONCE IV Last administered on 11/21/18at 04:06; Start 11/21/18 at 02:00; Stop 11/21/18 at 03:59; Status DC Piperacillin Sod/ Tazobactam Sod 3.375 gm/Sodium Chloride 50 ml @ 100 mls/hr Q6HRS IV Last administered on 11/26/18at 17:24; Start 11/21/18 at 01:45 Propofol 100 ml @ 0 mls/hr CONT PRN IV SEE I/O RECORD Last administered on 11/21/18at 10:05; Start 11/21/18 at 03:00; Stop 11/25/18 at 20:56; Status DC Etomidate (Amidate) 20 mg STK-MED ONCE IV ; Start 11/21/18 at 03:11; Stop 11/21/18 at 03:12; Status DC Rocuronium Holt (Zemuron) 50 mg STK-MED ONCE .ROUTE ; Start 11/21/18 at 03:12; Stop 11/21/18 at 03:13; Status DC Rocuronium Holt (Zemuron) 50 mg STK-MED ONCE .ROUTE ; Start 11/21/18 at 03:12; Stop 11/21/18 at 03:13; Status DC Vancomycin HCl 1.25 gm/Sodium Chloride 250 ml @ 167 mls/hr Q12H IV Last administered on 11/22/18at 03:44; Start 11/21/18 at 16:00; Stop 11/22/18 at 16:11; Status DC Vancomycin HCl (Vancomycin Trough Level) 1 each 1X ONCE MC Last administered on 11/22/18at 15:42; Start 11/22/18 at 15:30; Stop 11/22/18 at 15:31; Status DC Magnesium Sulfate 50 ml @ 25 mls/hr 1X ONCE IV Last administered on 11/21/18at 08:17; Start 11/21/18 at 07:30; Stop 11/21/18 at 09:29; Status DC Norepinephrine Bitartrate 250 ml @ 15.676 mls/ hr CONT PRN IV SEE I/O RECORD Last administered on 11/21/18at 20:58; Start 11/21/18 at 08:00; Stop 11/25/18 at 20:56; Status DC Fentanyl Citrate 30 ml @ 0 mls/hr CONT PRN IV SEE PROTOCOL; Start 11/21/18 at 10:15; Stop 11/26/18 at 14:11; Status DC Fentanyl Citrate (Fentanyl 2ml Vial) 25 mcg PRN Q1HR PRN IV SEE COMMENTS Last administered on 11/22/18at 11:47; Start 11/21/18 at 10:15 Chlorhexidine Gluconate (Peridex) 15 ml BID MM Last administered on 11/21/18at 20:58; Start 11/21/18 at 21:00; Stop 11/22/18 at 08:49; Status DC Famotidine (Pepcid Vial) 20 mg BID IVP Last administered on 11/26/18 09:26; Start 11/21/18 at 21:00; Stop 11/26/18 at 14:11; Status DC Midazolam HCl 100 ml @ 0 mls/hr CONT PRN IV SEE PROTOCOL Last administered on 11/22/18at 08:56; Start 11/21/18 at 10:15; Stop 11/25/18 at 20:56; Status DC Enoxaparin Sodium (Lovenox 40mg Syringe) 40 mg Q24H SQ Last administered on 11/21/18at 10:51; Start 11/21/18 at 10:15; Stop 11/22/18 at 08:43; Status DC Aspirin (Children'S Aspirin) 81 mg DAILYWBKFT PO Last administered on 11/26/18 09:26; Start 11/21/18 at 16:00 Sodium Chloride 1,000 ml @ 100 mls/hr Q10H IV Last administered on 11/26/18at 17:24; Start 11/22/18 at 03:00 Apixaban (Eliquis) 5 mg BID PO Last administered on 11/26/18 09:26; Start 11/22/18 at 09:00 Albuterol Sulfate (Ventolin Neb Soln) 2.5 mg Q8HRS PRN NEB WHEEZING; Start 11/22/18 at 08:45; Status UNV Albuterol Sulfate (Ventolin Neb Soln) 2.5 mg PRN Q6HRS PRN INH SHORTNESS OF BREATH Last administered on 11/23/18at 15:55; Start 11/22/18 at 08:45 Mupirocin (Bactroban) 1 justina TID PRN TP redness around PEG TUBE; Start 11/22/18 at 08:45 Artificial Tears (Artificial Tears) 1 drop PRN QID PRN OU DRY EYE; Start 11/22/18 at 09:00 Potassium Bicarbonate (Potassium Effervescent Tablet) 20 meq 1X ONCE PEG Last administered on 11/22/18at 10:17; Start 11/22/18 at 09:00; Stop 11/22/18 at 09:01; Status DC Info (Anti-Coagulation Monitoring By Pharmacy) 1 each PRN DAILY PRN MC SEE COMMENTS Last administered on 11/25/18at 10:30; Start 11/22/18 at 10:30 Metoprolol Tartrate (Lopressor Vial) 5 mg 1X ONCE IVP Last administered on 11/22/18at 15:04; Start 11/22/18 at 15:00; Stop 11/22/18 at 15:01; Status DC Vancomycin HCl 1 gm/Sodium Chloride 250 ml @ 250 mls/hr Q12H IV Last administered on 11/25/18at 09:22; Start 11/22/18 at 19:00; Stop 11/25/18 at 13:13; Status DC Vancomycin HCl (Vancomycin Trough Level) 1 each 1X ONCE MC Last administered on 11/24/18at 07:25; Start 11/24/18 at 06:30; Stop 11/24/18 at 06:31; Status DC Digoxin (Lanoxin) 250 mcg PRN DAILY PRN IV for sustained AFIB RVR; Start 11/22/18 at 16:45 Dextrose 250 ml @ As Directed STK-MED ONCE IV ; Start 11/23/18 at 08:26; Stop 11/23/18 at 08:26; Status DC Dextrose 250 ml @ As Directed STK-MED ONCE IV ; Start 11/23/18 at 08:31; Stop 11/23/18 at 08:32; Status DC Dextrose 250 ml @ 500 mls/hr 1X ONCE IV ; Start 11/23/18 at 08:45; Stop 11/23/18 at 08:40; Status DC Dextrose 500 ml @ 500 mls/hr 1X ONCE IV ; Start 11/23/18 at 08:45; Stop 11/23/18 at 08:41; Status DC Dextrose 250 ml @ 500 mls/hr 1X ONCE IV ; Start 11/23/18 at 08:45; Stop 11/23/18 at 09:14; Status DC Dextrose 250 ml @ 250 mls/hr 1X ONCE IV ; Start 11/23/18 at 08:45; Stop 11/23/18 at 09:44; Status DC Metoprolol Tartrate (Lopressor) 25 mg BID PO Last administered on 11/24/18at 03:32; Start 11/23/18 at 13:00; Stop 11/24/18 at 14:02; Status DC Magnesium Citrate (Citroma) 148 ml 1X ONCE PO Last administered on 11/23/18 16:10; Start 11/23/18 at 16:00; Stop 11/23/18 at 16:01; Status DC Docusate Sodium (Colace Solution) 100 mg BID PO Last administered on 11/26/18 09:26; Start 11/23/18 at 21:00 Multivitamins (Thera M Plus) 1 tab DAILY PO Last administered on 11/24/18 12:52; Start 11/24/18 at 11:00; Stop 11/24/18 at 13:13; Status DC Multivitamins (Thera-Plus Oral Liquid) 5 ml DAILY PEG Last administered on 11/26/18 09:26; Start 11/24/18 at 13:30 Metoprolol Tartrate (Lopressor) 12.5 mg BID PO Last administered on 11/26/18 09:26; Start 11/24/18 at 14:15 Famotidine (Pepcid) 20 mg BID PO ; Start 11/26/18 at 21:00 Active Scripts Active Tramadol Hcl 50 Mg Tablet 50 Mg PO PRN Q6HRS PRN Zyvox (Linezolid) 600 Mg Tablet 600 Mg PO BID Proair Hfa Inhaler (Albuterol Sulfate) 8.5 Gm Hfa.aer.ad 1 Puff INH PRN Q6HRS PRN Azithromycin Tablet (Azithromycin) 250 Mg Tablet 1 Pkg PO UD Reported Mupirocin Cream (Mupirocin) 15 Gm Cream..g. 1 Justina TP TID PRN Guaifenesin 100 Mg/5 Ml Liquid 100 Mg PO Q8HRS PRN Fluticasone Propionate Nasal Rozel (Fluticasone Propionate) 16 Gm Rozel.susp 2 Rozel NS DAILY Claritin (Loratadine) 10 Mg Capsule 10 Mg PO DAILY PRN Stomach Relief (Bismuth Subsalicylate) 262 Mg/15 Ml Oral.susp 262 Mg PEG Q6HRS PRN Artificial Tears Eye Drops (Dextran 70/Hypromellose) 15 Ml Drops 1 Drop EACHEYE QID PRN Albuterol Sulfate Neb Soln (Albuterol Sulfate) 2.5 Mg/3 Ml Vial.neb 2.5 Mg NEB Q8HRS PRN Vitals/I & O Vital Sign - Last 24 Hours 11/25/18 11/25/18 11/25/18 11/25/18 20:38 20:40 21:29 23:52 Temp 99.5 98.3 99.5 98.3 Pulse 89 102 75 Resp 28 30 B/P (MAP) 113/81 (92) 113/81 128/72 (90) Pulse Ox 98 98 O2 Delivery Nasal Cannula Nasal Cannula Nasal Cannula O2 Flow Rate 2.0 2.0 2.0 11/26/18 11/26/18 11/26/18 11/26/18 03:30 08:00 08:02 09:26 Temp 98.9 98.5 98.9 98.5 Pulse 86 92 92 Resp 24 24 B/P (MAP) 127/83 (98) 126/71 (89) 126/71 Pulse Ox 97 98 O2 Delivery Nasal Cannula Nasal Cannula Nasal Cannula O2 Flow Rate 2.0 2.0 2.0 11/26/18 11/26/18 11:13 14:40 Temp 98.4 99.0 98.4 99.0 Pulse 70 85 Resp 24 24 B/P (MAP) 130/74 (92) 133/58 (83) Pulse Ox 98 97 O2 Delivery Nasal Cannula Nasal Cannula O2 Flow Rate 2.0 2.0 Intake and Output 11/25/18 11/25/18 11/26/18 15:00 23:00 07:00 Intake Total 120 ml 1150 ml 50 ml Output Total 250 ml 850 ml 1500 ml Balance -130 ml 300 ml -1450 ml Nutrition Consultation Dietary Evaluation: Recommendations by RD: Protein supplementation Comments: NPO Adjust TF order to following: Glucerna 1.5@goal rate of 50 ml/hr, adjust water flushes to 150 ml q4 hrs, discussed w/RN and will adjust TF order Continue w/MVI for wound healing Continue w/Jonah BID via feeding tube for wound healing, discussed w/RN Expected Outcomes/Goals: to tolerate TF - met, goal ongoing Malnutrition Findings: Body Fat Depletion (Non Severe: Mild Depletion Weight Status: Appropriate JOVANI RAPP MD Nov 26, 2018 18:15
[2018-11-26 19:40] VITALS: BP 124/75
[2018-11-26] MEDS: FAMOTIDINE 20 MG TABLET. PO SCH (21:06)
[2018-11-26] MEDS: fentaNYL PF VIAL 100 MCG/2 ML VIAL IV PRN (22:03)
[2018-11-26 23:31] VITALS: BP 118/72
[2018-11-27 03:30] VITALS: BP 114/64
[2018-11-27] MEDS: IV NORMAL SALINE 1000ML BAG 1,000 ML IV SCH ×2 (05:00→12:12)
[2018-11-27] MEDS: PIPERACILLIN/TAZOBACTAM 3.375 GM in IV NORMAL SALINE 50ML 50 ML IV SCH ×3 (05:41→16:59)
[2018-11-27 06:38] LABS: CALCIUM 8.3 mg/dL (8.5-10.1); CREATININE 0.6 mg/dL (0.7-1.3); GFR 133.6
[2018-11-27 06:52] LABS: BASO # 0.1 x10^3/uL (0.0-0.2); BASO % 1 % (0-3); EOS # 0.2 x10^3/uL (0.0-0.7); EOS % 5 % (0-3); HEMATOCRIT 33.2 % (39.0-53.0); HEMOGLOBIN 11.5 g/dL (13.0-17.5); LYMPH # 0.8 x10^3/uL (1.0-4.8); LYMPH % 17 % (24-48); MEAN CORPUSCULAR HEMOGLOBIN 34 pg (25-35); MEAN CORPUSCULAR HGB CONC 35 g/dL (31-37); MEAN CORPUSCULAR VOLUME 99 fL (79-100); MONO # 0.4 x10^3/uL (0.0-1.1); MONO % 8 % (0-9); NEUT # 3.2 x10^3/uL (1.8-7.7); NEUT % 69 % (31-73); PLATELET COUNT 275 x10^3/uL (140-400); RED BLOOD COUNT 3.34 x10^6/uL (4.30-5.70); WHITE BLOOD COUNT 4.6 x10^3/uL (4.0-11.0)
--- NOTE | 2018-11-27 07:21 | PDOC ---
PULMONARY PROGRESS NOTES Subjective extubated 11/24, doesnt answer my Qs has cough w sputum, poor clearance of secretion MS at baseline Vitals Vital Signs Date Time Temp Pulse Resp B/P (MAP) Pulse Ox O2 Delivery O2 Flow Rate FiO2 11/27/18 03:30 98.9 82 24 114/64 (81) 96 Nasal Cannula 2.0 98.9 Comments does not follow commands General: No acute distress Lungs: Crackles, Other (rhonchi upper chest) Cardiovascular: S1, S2 Abdomen: Soft, Other (mildly tender) Extremities: Other (trace edema) Skin: Warm Labs Laboratory Tests Test 11/26/18 05:45 11/27/18 06:15 White Blood Count 5.8 x10^3/uL (4.0-11.0) 4.6 x10^3/uL (4.0-11.0) Red Blood Count 3.40 x10^6/uL (4.30-5.70) 3.34 x10^6/uL (4.30-5.70) Hemoglobin 11.8 g/dL (13.0-17.5) 11.5 g/dL (13.0-17.5) Hematocrit 33.8 % (39.0-53.0) 33.2 % (39.0-53.0) Mean Corpuscular Volume 100 fL (79-100) 99 fL (79-100) Mean Corpuscular Hemoglobin 35 pg (25-35) 34 pg (25-35) Mean Corpuscular Hemoglobin Concent 35 g/dL (31-37) 35 g/dL (31-37) Red Cell Distribution Width 13.1 % (11.5-14.5) 13.0 % (11.5-14.5) Platelet Count 256 x10^3/uL (140-400) 275 x10^3/uL (140-400) Neutrophils (%) (Auto) 76 % (31-73) 69 % (31-73) Lymphocytes (%) (Auto) 13 % (24-48) 17 % (24-48) Monocytes (%) (Auto) 8 % (0-9) 8 % (0-9) Eosinophils (%) (Auto) 4 % (0-3) 5 % (0-3) Basophils (%) (Auto) 1 % (0-3) 1 % (0-3) Neutrophils # (Auto) 4.4 x10^3/uL (1.8-7.7) 3.2 x10^3/uL (1.8-7.7) Lymphocytes # (Auto) 0.7 x10^3/uL (1.0-4.8) 0.8 x10^3/uL (1.0-4.8) Monocytes # (Auto) 0.4 x10^3/uL (0.0-1.1) 0.4 x10^3/uL (0.0-1.1) Eosinophils # (Auto) 0.2 x10^3/uL (0.0-0.7) 0.2 x10^3/uL (0.0-0.7) Basophils # (Auto) 0.0 x10^3/uL (0.0-0.2) 0.1 x10^3/uL (0.0-0.2) Sodium Level 144 mmol/L (136-145) 142 mmol/L (136-145) Potassium Level 3.8 mmol/L (3.5-5.1) 4.0 mmol/L (3.5-5.1) Chloride Level 107 mmol/L (98-107) 105 mmol/L (98-107) Carbon Dioxide Level 34 mmol/L (21-32) 35 mmol/L (21-32) Anion Gap 3 (6-14) 2 (6-14) Blood Urea Nitrogen 8 mg/dL (8-26) 11 mg/dL (8-26) Creatinine 0.6 mg/dL (0.7-1.3) 0.6 mg/dL (0.7-1.3) Estimated GFR (Cockcroft-Gault) 133.6 133.6 Glucose Level 114 mg/dL (70-99) 122 mg/dL (70-99) Calcium Level 8.3 mg/dL (8.5-10.1) 8.3 mg/dL (8.5-10.1) Laboratory Tests Test 11/27/18 06:15 White Blood Count 4.6 x10^3/uL (4.0-11.0) Red Blood Count 3.34 x10^6/uL (4.30-5.70) Hemoglobin 11.5 g/dL (13.0-17.5) Hematocrit 33.2 % (39.0-53.0) Mean Corpuscular Volume 99 fL (79-100) Mean Corpuscular Hemoglobin 34 pg (25-35) Mean Corpuscular Hemoglobin Concent 35 g/dL (31-37) Red Cell Distribution Width 13.0 % (11.5-14.5) Platelet Count 275 x10^3/uL (140-400) Neutrophils (%) (Auto) 69 % (31-73) Lymphocytes (%) (Auto) 17 % (24-48) Monocytes (%) (Auto) 8 % (0-9) Eosinophils (%) (Auto) 5 % (0-3) Basophils (%) (Auto) 1 % (0-3) Neutrophils # (Auto) 3.2 x10^3/uL (1.8-7.7) Lymphocytes # (Auto) 0.8 x10^3/uL (1.0-4.8) Monocytes # (Auto) 0.4 x10^3/uL (0.0-1.1) Eosinophils # (Auto) 0.2 x10^3/uL (0.0-0.7) Basophils # (Auto) 0.1 x10^3/uL (0.0-0.2) Sodium Level 142 mmol/L (136-145) Potassium Level 4.0 mmol/L (3.5-5.1) Chloride Level 105 mmol/L (98-107) Carbon Dioxide Level 35 mmol/L (21-32) Anion Gap 2 (6-14) Blood Urea Nitrogen 11 mg/dL (8-26) Creatinine 0.6 mg/dL (0.7-1.3) Estimated GFR (Cockcroft-Gault) 133.6 Glucose Level 122 mg/dL (70-99) Calcium Level 8.3 mg/dL (8.5-10.1) Medications Active Scripts Medications Dose Route/Sig Max Daily Dose Days Date Category Tramadol Hcl 50 Mg Tablet 50 Mg PO PRN Q6HRS PRN 11/15/18 Rx Zyvox (Linezolid) 600 Mg Tablet 600 Mg PO BID 11/15/18 Rx Mupirocin Cream (Mupirocin) 15 Gm Cream..g. 1 Justina TP TID PRN 11/10/18 Reported Guaifenesin 100 Mg/5 Ml Liquid 100 Mg PO Q8HRS PRN 11/10/18 Reported Fluticasone Propionate Nasal [place] (Fluticasone Propionate) 16 Gm [place].susp 2 [place] NS DAILY 11/10/18 Reported Claritin (Loratadine) 10 Mg Capsule 10 Mg PO DAILY PRN 11/10/18 Reported Stomach Relief (Bismuth Subsalicylate) 262 Mg/15 Ml Oral.susp 262 Mg PEG Q6HRS PRN 11/10/18 Reported Artificial Tears Eye Drops (Dextran 70/Hypromellose) 15 Ml Drops 1 Drop EACHEYE QID PRN 11/10/18 Reported Albuterol Sulfate Neb Soln (Albuterol Sulfate) 2.5 Mg/3 Ml Vial.neb 2.5 Mg NEB Q8HRS PRN 11/10/18 Reported Proair Hfa Inhaler (Albuterol Sulfate) 8.5 Gm Hfa.aer.ad 1 Puff INH PRN Q6HRS PRN 08/08/16 Rx Azithromycin Tablet (Azithromycin) 250 Mg Tablet 1 Pkg PO UD 08/08/16 Rx Impression . 1. Acute respiratory failure, multifactorial. Extubated 11/24 2. Aspiration pneumonia. 3. Suspect gram-negative, possibly gram-positive and anaerobes. 4. Septic shock. resolved 5. Underlying dementia and depression. 6. Type 2 diabetes. 7. Gastroesophageal reflux. 8. Status post PEG tube placement in the past. 9. Multiple other comorbidities as indicated above. 10. Elevated troponin. 11.h/o TBI, with progressive dementia 12. 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 1. extubated. MS at baseline. does not communicate. 2. Continue coverage for both gram-positive and gram-negative organisms. id on case 3. Leave up to PCP to consider vascular surgery input 4. elevate hob 5. TF via PEG, npo 6. abdomen and pelvis.CT REVIEWED 7. follow Cardiology rec 8. Needs prn suction. cannot clear secretions dr gilbert d/w in detail reg code status on 11/24. she will let us know about DNR/DNI d/w RN/ LANG MCCARTHY MD Nov 27, 2018 07:21
[2018-11-27 07:49] VITALS: BP 140/64
[2018-11-27] MEDS: METOPROLOL TART IMMED RELEASE 25 MG TABLET. PO SCH ×2 (08:30→20:54)
[2018-11-27] MEDS: DOCUSATE 100 MG/10 ML SOLUTION. PO SCH ×2 (08:31→20:54)
[2018-11-27] MEDS: ASPIRIN CHEWABLE 81 MG TABLET. PO SCH (08:31)
[2018-11-27] MEDS: APIXABAN 5 MG TABLET. PO SCH ×2 (08:31→20:54)
[2018-11-27] MEDS: MULTIVITAMINS,THERAPEUTIC 5 ML ORAL LIQUID. PEG SCH (08:31)
[2018-11-27] MEDS: FAMOTIDINE 20 MG TABLET. PO SCH ×2 (08:31→20:54)
--- NOTE | 2018-11-27 08:53 | PDOC ---
Infectious Disease Note Subjective Subjective Noncommunicative 2L O2 No fevers reported Tube feedings ROS ROS unobtainable Vital Sign Vital Signs Vital Signs Date Time Temp Pulse Resp B/P (MAP) Pulse Ox O2 Delivery O2 Flow Rate FiO2 11/27/18 08:32 87 140/64 11/27/18 07:49 97.7 24 94 Nasal Cannula 2.0 97.7 Physical Exam PHYSICAL EXAM GENERAL: Propped up in bed, lethargic HEENT: Mouth breather, oral cavity dry LUNGS: Clear anteriorly HEART: S1, S2, irregular ABDOMEN: Soft, PEG : Molina EXTREMITIES: No gross edema. 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 RIJ - clean Labs Lab Laboratory Tests Test 11/27/18 06:15 White Blood Count 4.6 x10^3/uL (4.0-11.0) Red Blood Count 3.34 x10^6/uL (4.30-5.70) Hemoglobin 11.5 g/dL (13.0-17.5) Hematocrit 33.2 % (39.0-53.0) Mean Corpuscular Volume 99 fL (79-100) Mean Corpuscular Hemoglobin 34 pg (25-35) Mean Corpuscular Hemoglobin Concent 35 g/dL (31-37) Red Cell Distribution Width 13.0 % (11.5-14.5) Platelet Count 275 x10^3/uL (140-400) Neutrophils (%) (Auto) 69 % (31-73) Lymphocytes (%) (Auto) 17 % (24-48) Monocytes (%) (Auto) 8 % (0-9) Eosinophils (%) (Auto) 5 % (0-3) Basophils (%) (Auto) 1 % (0-3) Neutrophils # (Auto) 3.2 x10^3/uL (1.8-7.7) Lymphocytes # (Auto) 0.8 x10^3/uL (1.0-4.8) Monocytes # (Auto) 0.4 x10^3/uL (0.0-1.1) Eosinophils # (Auto) 0.2 x10^3/uL (0.0-0.7) Basophils # (Auto) 0.1 x10^3/uL (0.0-0.2) Sodium Level 142 mmol/L (136-145) Potassium Level 4.0 mmol/L (3.5-5.1) Chloride Level 105 mmol/L (98-107) Carbon Dioxide Level 35 mmol/L (21-32) Anion Gap 2 (6-14) Blood Urea Nitrogen 11 mg/dL (8-26) Creatinine 0.6 mg/dL (0.7-1.3) Estimated GFR (Cockcroft-Gault) 133.6 Glucose Level 122 mg/dL (70-99) Calcium Level 8.3 mg/dL (8.5-10.1) Micro 11/20/18 Blood Culture - Preliminary, Resulted NO GROWTH AFTER 5 DAY URINE CULTURE RES 1 Final No growth Objective Assessment Sepsis, present on admission on 11/20. improving. cultures neg Acute respiratory failure, s/p extubation 11/24 Leukocytosis - better Elevated troponin. LEVOFLOXACIN ALLERGY. Uncertain what happens when this is taken. A-fib Debility Plan Plan of Care Continue Zosyn (11/21) for now wean soon Off vanc Monitor labs D/w nursing Poor prognosis Attending Co-Sign Attending Co-Sign The patient was seen and interviewed as well as examined at the bedside. The chart was reviewed. The case was discussed. Agree with the plan of care. HÉCTOR BHATIA APRN Nov 27, 2018 08:53 JAZIEL MONSALVE MD Nov 27, 2018 12:09
[2018-11-27 11:10] VITALS: BP 116/55
--- NOTE | 2018-11-27 12:58 | PDOC ---
PROGRESS NOTES Chief Complaint Chief Complaint Sepsis Acute respiratory failure, multifactorial. Extubated 11/24 Aspiration pneumonia COPD SOB Dementia Depression DM Diverticulitis GERD Kidney stones TBI from previous suicide attempt Type 2 diabetes. Status post PEG tube placement in the past. Elevated troponin. 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 does not communicate. continue TF via PEG, npo remains full code for now continue zosyn for now continue prn suctioning as can't clear secretions await family discussions regarding DNR and DNI Vitals Vitals Vital Signs Date Time Temp Pulse Resp B/P (MAP) Pulse Ox O2 Delivery O2 Flow Rate FiO2 11/27/18 11:10 98.4 67 24 116/55 (75) 97 Nasal Cannula 2.0 98.4 Physical Exam Physical Exam GENERAL: Propped up in bed, lethargic HEENT: Mouth breather, oral cavity dry LUNGS: Clear anteriorly HEART: S1, S2, irregular ABDOMEN: Soft, PEG : Molina EXTREMITIES: No gross edema. 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 RIJ - clean General: Alert, No acute distress Heart: Regular rate, Normal S1, Normal S2 Lungs: Crackles, Other (rhonchi upper chest) Abdomen: Normal bowel sounds, No masses Extremities: No cyanosis, No edema Skin: No rashes, No significant lesion Labs LABS Laboratory Tests Test 11/27/18 06:15 White Blood Count 4.6 x10^3/uL (4.0-11.0) Red Blood Count 3.34 x10^6/uL (4.30-5.70) Hemoglobin 11.5 g/dL (13.0-17.5) Hematocrit 33.2 % (39.0-53.0) Mean Corpuscular Volume 99 fL (79-100) Mean Corpuscular Hemoglobin 34 pg (25-35) Mean Corpuscular Hemoglobin Concent 35 g/dL (31-37) Red Cell Distribution Width 13.0 % (11.5-14.5) Platelet Count 275 x10^3/uL (140-400) Neutrophils (%) (Auto) 69 % (31-73) Lymphocytes (%) (Auto) 17 % (24-48) Monocytes (%) (Auto) 8 % (0-9) Eosinophils (%) (Auto) 5 % (0-3) Basophils (%) (Auto) 1 % (0-3) Neutrophils # (Auto) 3.2 x10^3/uL (1.8-7.7) Lymphocytes # (Auto) 0.8 x10^3/uL (1.0-4.8) Monocytes # (Auto) 0.4 x10^3/uL (0.0-1.1) Eosinophils # (Auto) 0.2 x10^3/uL (0.0-0.7) Basophils # (Auto) 0.1 x10^3/uL (0.0-0.2) Sodium Level 142 mmol/L (136-145) Potassium Level 4.0 mmol/L (3.5-5.1) Chloride Level 105 mmol/L (98-107) Carbon Dioxide Level 35 mmol/L (21-32) Anion Gap 2 (6-14) Blood Urea Nitrogen 11 mg/dL (8-26) Creatinine 0.6 mg/dL (0.7-1.3) Estimated GFR (Cockcroft-Gault) 133.6 Glucose Level 122 mg/dL (70-99) Calcium Level 8.3 mg/dL (8.5-10.1) Assessment and Plan Assessmemt and Plan Problems Medical Problems: (1) Acute respiratory failure Status: Acute (2) Aspiration pneumonia Status: Acute (3) Atrial fibrillation with RVR Status: Acute (4) COPD (chronic obstructive pulmonary disease) Status: Chronic (5) Diabetes mellitus Status: Chronic (6) Diverticulitis Status: Chronic (7) GERD (gastroesophageal reflux disease) Status: Chronic (8) Hypomagnesemia Status: Acute (9) Kidney stones Status: Chronic (10) Sepsis Status: Acute (11) UTI (urinary tract infection) Status: Acute Comment Review of Relevant I have reviewed the following items lew (where applicable) has been applied. Labs Laboratory Tests Test 11/26/18 05:45 11/27/18 06:15 White Blood Count 5.8 x10^3/uL (4.0-11.0) 4.6 x10^3/uL (4.0-11.0) Red Blood Count 3.40 x10^6/uL (4.30-5.70) 3.34 x10^6/uL (4.30-5.70) Hemoglobin 11.8 g/dL (13.0-17.5) 11.5 g/dL (13.0-17.5) Hematocrit 33.8 % (39.0-53.0) 33.2 % (39.0-53.0) Mean Corpuscular Volume 100 fL (79-100) 99 fL (79-100) Mean Corpuscular Hemoglobin 35 pg (25-35) 34 pg (25-35) Mean Corpuscular Hemoglobin Concent 35 g/dL (31-37) 35 g/dL (31-37) Red Cell Distribution Width 13.1 % (11.5-14.5) 13.0 % (11.5-14.5) Platelet Count 256 x10^3/uL (140-400) 275 x10^3/uL (140-400) Neutrophils (%) (Auto) 76 % (31-73) 69 % (31-73) Lymphocytes (%) (Auto) 13 % (24-48) 17 % (24-48) Monocytes (%) (Auto) 8 % (0-9) 8 % (0-9) Eosinophils (%) (Auto) 4 % (0-3) 5 % (0-3) Basophils (%) (Auto) 1 % (0-3) 1 % (0-3) Neutrophils # (Auto) 4.4 x10^3/uL (1.8-7.7) 3.2 x10^3/uL (1.8-7.7) Lymphocytes # (Auto) 0.7 x10^3/uL (1.0-4.8) 0.8 x10^3/uL (1.0-4.8) Monocytes # (Auto) 0.4 x10^3/uL (0.0-1.1) 0.4 x10^3/uL (0.0-1.1) Eosinophils # (Auto) 0.2 x10^3/uL (0.0-0.7) 0.2 x10^3/uL (0.0-0.7) Basophils # (Auto) 0.0 x10^3/uL (0.0-0.2) 0.1 x10^3/uL (0.0-0.2) Sodium Level 144 mmol/L (136-145) 142 mmol/L (136-145) Potassium Level 3.8 mmol/L (3.5-5.1) 4.0 mmol/L (3.5-5.1) Chloride Level 107 mmol/L (98-107) 105 mmol/L (98-107) Carbon Dioxide Level 34 mmol/L (21-32) 35 mmol/L (21-32) Anion Gap 3 (6-14) 2 (6-14) Blood Urea Nitrogen 8 mg/dL (8-26) 11 mg/dL (8-26) Creatinine 0.6 mg/dL (0.7-1.3) 0.6 mg/dL (0.7-1.3) Estimated GFR (Cockcroft-Gault) 133.6 133.6 Glucose Level 114 mg/dL (70-99) 122 mg/dL (70-99) Calcium Level 8.3 mg/dL (8.5-10.1) 8.3 mg/dL (8.5-10.1) Laboratory Tests Test 11/27/18 06:15 White Blood Count 4.6 x10^3/uL (4.0-11.0) Red Blood Count 3.34 x10^6/uL (4.30-5.70) Hemoglobin 11.5 g/dL (13.0-17.5) Hematocrit 33.2 % (39.0-53.0) Mean Corpuscular Volume 99 fL (79-100) Mean Corpuscular Hemoglobin 34 pg (25-35) Mean Corpuscular Hemoglobin Concent 35 g/dL (31-37) Red Cell Distribution Width 13.0 % (11.5-14.5) Platelet Count 275 x10^3/uL (140-400) Neutrophils (%) (Auto) 69 % (31-73) Lymphocytes (%) (Auto) 17 % (24-48) Monocytes (%) (Auto) 8 % (0-9) Eosinophils (%) (Auto) 5 % (0-3) Basophils (%) (Auto) 1 % (0-3) Neutrophils # (Auto) 3.2 x10^3/uL (1.8-7.7) Lymphocytes # (Auto) 0.8 x10^3/uL (1.0-4.8) Monocytes # (Auto) 0.4 x10^3/uL (0.0-1.1) Eosinophils # (Auto) 0.2 x10^3/uL (0.0-0.7) Basophils # (Auto) 0.1 x10^3/uL (0.0-0.2) Sodium Level 142 mmol/L (136-145) Potassium Level 4.0 mmol/L (3.5-5.1) Chloride Level 105 mmol/L (98-107) Carbon Dioxide Level 35 mmol/L (21-32) Anion Gap 2 (6-14) Blood Urea Nitrogen 11 mg/dL (8-26) Creatinine 0.6 mg/dL (0.7-1.3) Estimated GFR (Cockcroft-Gault) 133.6 Glucose Level 122 mg/dL (70-99) Calcium Level 8.3 mg/dL (8.5-10.1) Microbiology 11/21/18 Blood Culture - Final, Complete NO GROWTH AFTER 5 DAYS 11/20/18 Urine Culture - Final, Complete 11/20/18 Urine Culture Result 1 (KASIE) - Final, Complete Medications Current Medications Sodium Chloride (NORMAL SALINE FLUSH for STERILE FIELD) 10 ml STK-MED ONCE .ROUTE ; Start 11/20/18 at 22:37; Stop 11/20/18 at 22:38; Status DC Propofol 100 ml @ As Directed STK-MED ONCE IV ; Start 11/20/18 at 22:40; Stop 11/20/18 at 22:41; Status DC Norepinephrine Bitartrate 250 ml @ 0.188 mls/ hr 1X ONCE IV ; Start 11/20/18 at 23:00; Stop 11/20/18 at 23:01; Status Cancel Piperacillin Sod/ Tazobactam Sod (Zosyn Per Pharmacy) 1 each PRN DAILY PRN MC SEE COMMENTS; Start 11/20/18 at 23:00 Vancomycin HCl (Vanco Per Pharmacy) 1 each PRN DAILY PRN MC SEE COMMENTS Last administered on 11/25/18at 10:27; Start 11/20/18 at 23:00; Stop 11/25/18 at 13:13; Status DC Sodium Chloride 1,000 ml @ 1,000 mls/hr Q1H IV Last administered on 11/21/18at 00:50; Start 11/20/18 at 23:00; Stop 11/21/18 at 01:14; Status DC Norepinephrine Bitartrate 250 ml @ 0 mls/hr 1X ONCE IV Last administered on 11/20/18at 23:26; Start 11/20/18 at 23:30; Stop 11/20/18 at 23:31; Status DC Propofol (Diprivan) 200 mg 1X ONCE IV ; Start 11/20/18 at 23:30; Stop 11/20/18 at 23:31; Status DC Propofol 50 ml @ 0 mls/hr 1X ONCE IV Last administered on 11/20/18at 23:36; Start 11/20/18 at 23:45; Stop 11/20/18 at 23:46; Status DC Sodium Chloride 1,000 ml @ 125 mls/hr 1X ONCE IV Last administered on 11/21/18at 01:12; Start 11/21/18 at 01:00; Stop 11/21/18 at 08:59; Status DC Vancomycin HCl 2 gm/Sodium Chloride 500 ml @ 250 mls/hr 1X ONCE IV Last administered on 11/21/18at 04:06; Start 11/21/18 at 02:00; Stop 11/21/18 at 03:59; Status DC Piperacillin Sod/ Tazobactam Sod 3.375 gm/Sodium Chloride 50 ml @ 100 mls/hr Q6HRS IV Last administered on 11/27/18at 12:12; Start 11/21/18 at 01:45 Propofol 100 ml @ 0 mls/hr CONT PRN IV SEE I/O RECORD Last administered on 11/21/18at 10:05; Start 11/21/18 at 03:00; Stop 11/25/18 at 20:56; Status DC Etomidate (Amidate) 20 mg STK-MED ONCE IV ; Start 11/21/18 at 03:11; Stop 11/21/18 at 03:12; Status DC Rocuronium [place] (Zemuron) 50 mg STK-MED ONCE .ROUTE ; Start 11/21/18 at 03:12; Stop 11/21/18 at 03:13; Status DC Rocuronium [place] (Zemuron) 50 mg STK-MED ONCE .ROUTE ; Start 11/21/18 at 03:12; Stop 11/21/18 at 03:13; Status DC Vancomycin HCl 1.25 gm/Sodium Chloride 250 ml @ 167 mls/hr Q12H IV Last administered on 11/22/18 03:44; Start 11/21/18 at 16:00; Stop 11/22/18 at 16:11; Status DC Vancomycin HCl (Vancomycin Trough Level) 1 each 1X ONCE MC Last administered on 11/22/18at 15:42; Start 11/22/18 at 15:30; Stop 11/22/18 at 15:31; Status DC Magnesium Sulfate 50 ml @ 25 mls/hr 1X ONCE IV Last administered on 11/21/18 08:17; Start 11/21/18 at 07:30; Stop 11/21/18 at 09:29; Status DC Norepinephrine Bitartrate 250 ml @ 15.676 mls/ hr CONT PRN IV SEE I/O RECORD Last administered on 11/21/18at 20:58; Start 11/21/18 at 08:00; Stop 11/25/18 at 20:56; Status DC Fentanyl Citrate 30 ml @ 0 mls/hr CONT PRN IV SEE PROTOCOL; Start 11/21/18 at 10:15; Stop 11/26/18 at 14:11; Status DC Fentanyl Citrate (Fentanyl 2ml Vial) 25 mcg PRN Q1HR PRN IV SEE COMMENTS Last administered on 11/26/18at 22:03; Start 11/21/18 at 10:15 Chlorhexidine Gluconate (Peridex) 15 ml BID MM Last administered on 11/21/18at 20:58; Start 11/21/18 at 21:00; Stop 11/22/18 at 08:49; Status DC Famotidine (Pepcid Vial) 20 mg BID IVP Last administered on 11/26/18at 09:26; Start 11/21/18 at 21:00; Stop 11/26/18 at 14:11; Status DC Midazolam HCl 100 ml @ 0 mls/hr CONT PRN IV SEE PROTOCOL Last administered on 11/22/18 08:56; Start 11/21/18 at 10:15; Stop 11/25/18 at 20:56; Status DC Enoxaparin Sodium (Lovenox 40mg Syringe) 40 mg Q24H SQ Last administered on 11/21/18at 10:51; Start 11/21/18 at 10:15; Stop 11/22/18 at 08:43; Status DC Aspirin (Children'S Aspirin) 81 mg DAILYWBKFT PO Last administered on 11/27/18 08:32; Start 11/21/18 at 16:00 Sodium Chloride 1,000 ml @ 100 mls/hr Q10H IV Last administered on 11/27/18 12:12; Start 11/22/18 at 03:00 Apixaban (Eliquis) 5 mg BID PO Last administered on 11/27/18 08:32; Start 11/22/18 at 09:00 Albuterol Sulfate (Ventolin Neb Soln) 2.5 mg Q8HRS PRN NEB WHEEZING; Start 11/22/18 at 08:45; Status UNV Albuterol Sulfate (Ventolin Neb Soln) 2.5 mg PRN Q6HRS PRN INH SHORTNESS OF BREATH Last administered on 11/23/18 15:55; Start 11/22/18 at 08:45 Mupirocin (Bactroban) 1 justina TID PRN TP redness around PEG TUBE; Start 11/22/18 at 08:45 Artificial Tears (Artificial Tears) 1 drop PRN QID PRN OU DRY EYE; Start 11/22/18 at 09:00 Potassium Bicarbonate (Potassium Effervescent Tablet) 20 meq 1X ONCE PEG Last administered on 11/22/18 10:17; Start 11/22/18 at 09:00; Stop 11/22/18 at 09:01; Status DC Info (Anti-Coagulation Monitoring By Pharmacy) 1 each PRN DAILY PRN MC SEE COMMENTS Last administered on 11/25/18 10:30; Start 11/22/18 at 10:30 Metoprolol Tartrate (Lopressor Vial) 5 mg 1X ONCE IVP Last administered on 11/22/18 15:04; Start 11/22/18 at 15:00; Stop 11/22/18 at 15:01; Status DC Vancomycin HCl 1 gm/Sodium Chloride 250 ml @ 250 mls/hr Q12H IV Last administered on 11/25/18 09:22; Start 11/22/18 at 19:00; Stop 11/25/18 at 13:13; Status DC Vancomycin HCl (Vancomycin Trough Level) 1 each 1X ONCE MC Last administered on 8/8/19at 07:25; Start 11/24/18 at 06:30; Stop 11/24/18 at 06:31; Status DC Digoxin (Lanoxin) 250 mcg PRN DAILY PRN IV for sustained AFIB RVR; Start 11/22/18 at 16:45 Dextrose 250 ml @ As Directed STK-MED ONCE IV ; Start 11/23/18 at 08:26; Stop 11/23/18 at 08:26; Status DC Dextrose 250 ml @ As Directed STK-MED ONCE IV ; Start 11/23/18 at 08:31; Stop 11/23/18 at 08:32; Status DC Dextrose 250 ml @ 500 mls/hr 1X ONCE IV ; Start 11/23/18 at 08:45; Stop 11/23/18 at 08:40; Status DC Dextrose 500 ml @ 500 mls/hr 1X ONCE IV ; Start 11/23/18 at 08:45; Stop 11/23/18 at 08:41; Status DC Dextrose 250 ml @ 500 mls/hr 1X ONCE IV ; Start 11/23/18 at 08:45; Stop 11/23/18 at 09:14; Status DC Dextrose 250 ml @ 250 mls/hr 1X ONCE IV ; Start 11/23/18 at 08:45; Stop 11/23/18 at 09:44; Status DC Metoprolol Tartrate (Lopressor) 25 mg BID PO Last administered on 11/24/18at 03:32; Start 11/23/18 at 13:00; Stop 11/24/18 at 14:02; Status DC Magnesium Citrate (Citroma) 148 ml 1X ONCE PO Last administered on 11/23/18at 16:10; Start 11/23/18 at 16:00; Stop 11/23/18 at 16:01; Status DC Docusate Sodium (Colace Solution) 100 mg BID PO Last administered on 11/26/18at 09:26; Start 11/23/18 at 21:00 Multivitamins (Thera M Plus) 1 tab DAILY PO Last administered on 11/24/18at 12:52; Start 11/24/18 at 11:00; Stop 11/24/18 at 13:13; Status DC Multivitamins (Thera-Plus Oral Liquid) 5 ml DAILY PEG Last administered on 11/27/18at 08:32; Start 11/24/18 at 13:30 Metoprolol Tartrate (Lopressor) 12.5 mg BID PO Last administered on 11/27/18at 08:32; Start 11/24/18 at 14:15 Famotidine (Pepcid) 20 mg BID PO Last administered on 11/27/18at 08:32; Start 11/26/18 at 21:00 Active Scripts Active Tramadol Hcl 50 Mg Tablet 50 Mg PO PRN Q6HRS PRN Zyvox (Linezolid) 600 Mg Tablet 600 Mg PO BID Proair Hfa Inhaler (Albuterol Sulfate) 8.5 Gm Hfa.aer.ad 1 Puff INH PRN Q6HRS PRN Azithromycin Tablet (Azithromycin) 250 Mg Tablet 1 Pkg PO UD Reported Mupirocin Cream (Mupirocin) 15 Gm Cream..g. 1 Justina TP TID PRN Guaifenesin 100 Mg/5 Ml Liquid 100 Mg PO Q8HRS PRN Fluticasone Propionate Nasal Gordon (Fluticasone Propionate) 16 Gm Gordon.susp 2 Gordon NS DAILY Claritin (Loratadine) 10 Mg Capsule 10 Mg PO DAILY PRN Stomach Relief (Bismuth Subsalicylate) 262 Mg/15 Ml Oral.susp 262 Mg PEG Q6HRS PRN Artificial Tears Eye Drops (Dextran 70/Hypromellose) 15 Ml Drops 1 Drop EACHEYE QID PRN Albuterol Sulfate Neb Soln (Albuterol Sulfate) 2.5 Mg/3 Ml Vial.neb 2.5 Mg NEB Q8HRS PRN Vitals/I & O Vital Sign - Last 24 Hours 11/26/18 11/26/18 11/26/18 11/26/18 14:40 19:31 19:40 21:07 Temp 99.0 98.5 99.0 98.5 Pulse 85 96 79 Resp 24 28 B/P (MAP) 133/58 (83) 124/75 (91) 124/75 Pulse Ox 97 98 O2 Delivery Nasal Cannula Nasal Cannula Nasal Cannula O2 Flow Rate 2.0 2.0 2.0 11/26/18 11/26/18 11/27/18 11/27/18 22:03 23:31 00:01 03:30 Temp 98.1 98.9 98.1 98.9 Pulse 81 82 Resp 18 18 18 24 B/P (MAP) 118/72 (87) 114/64 (81) Pulse Ox 98 96 O2 Delivery Nasal Cannula Nasal Cannula Nasal Cannula Nasal Cannula O2 Flow Rate 2.0 2.0 2.0 2.0 11/27/18 11/27/18 11/27/18 11/27/18 07:49 08:00 08:32 11:10 Temp 97.7 98.4 97.7 98.4 Pulse 87 87 67 Resp 24 24 B/P (MAP) 140/64 (89) 140/64 116/55 (75) Pulse Ox 94 97 O2 Delivery Nasal Cannula Nasal Cannula Nasal Cannula O2 Flow Rate 2.0 2.0 2.0 Intake and Output 11/26/18 11/26/18 11/27/18 15:00 23:00 07:00 Intake Total 150 ml 150 ml 1300 ml Output Total 2600 ml 1500 ml Balance 150 ml -2450 ml -200 ml Nutrition Consultation Dietary Evaluation: Recommendations by RD: Protein supplementation Comments: NPO Adjust TF order to following: Glucerna 1.5@goal rate of 50 ml/hr, adjust water flushes to 150 ml q4 hrs, discussed w/RN and will adjust TF order Continue w/MVI for wound healing Continue w/Jonah BID via feeding tube for wound healing, discussed w/RN Expected Outcomes/Goals: to tolerate TF - met, goal ongoing Malnutrition Findings: Body Fat Depletion (Non Severe: Mild Depletion Weight Status: Appropriate JOVANI RAPP MD Nov 27, 2018 12:58
[2018-11-27] MEDS: ALBUTEROL SULFATE 2.5 MG/3 ML NEBU. INH PRN (13:17)
[2018-11-27 15:04] VITALS: BP 138/82
[2018-11-27 19:24] VITALS: BP 141/71
[2018-11-27 23:21] VITALS: BP 129/81
[2018-11-28] MEDS: PIPERACILLIN/TAZOBACTAM 3.375 GM in IV NORMAL SALINE 50ML 50 ML IV SCH ×2 (00:17→05:23)
[2018-11-28] MEDS: IV NORMAL SALINE 1000ML BAG 1,000 ML IV SCH ×2 (00:17→10:25)
[2018-11-28 02:00] VITALS: BP 144/78
[2018-11-28 06:04] LABS: BASO # 0.1 x10^3/uL (0.0-0.2); BASO % 1 % (0-3); EOS # 0.3 x10^3/uL (0.0-0.7); EOS % 4 % (0-3); HEMATOCRIT 34.1 % (39.0-53.0); HEMOGLOBIN 11.7 g/dL (13.0-17.5); LYMPH % 16 % (24-48); MEAN CORPUSCULAR HEMOGLOBIN 34 pg (25-35); MEAN CORPUSCULAR HGB CONC 35 g/dL (31-37); MEAN CORPUSCULAR VOLUME 99 fL (79-100); MONO # 0.5 x10^3/uL (0.0-1.1); MONO % 9 % (0-9); NEUT # 4.1 x10^3/uL (1.8-7.7); NEUT % 70 % (31-73); PLATELET COUNT 292 x10^3/uL (140-400); RED BLOOD COUNT 3.43 x10^6/uL (4.30-5.70); RED CELL DISTRIBUTION WIDTH 13.5 % (11.5-14.5); WHITE BLOOD COUNT 5.9 x10^3/uL (4.0-11.0)
[2018-11-28 06:21] LABS: CALCIUM 8.7 mg/dL (8.5-10.1); CREATININE 0.6 mg/dL (0.7-1.3); GFR 133.6; POTASSIUM 4.2 mmol/L (3.5-5.1)
[2018-11-28 07:00] VITALS: BP 126/69
--- NOTE | 2018-11-28 09:10 | PDOC ---
PULMONARY PROGRESS NOTES Subjective extubated 11/24, doesnt answer my Qs has cough w sputum, poor clearance of secretion MS at baseline Vitals Vital Signs Date Time Temp Pulse Resp B/P (MAP) Pulse Ox O2 Delivery O2 Flow Rate FiO2 11/28/18 07:00 99.1 98 16 126/69 (88) 96 Nasal Cannula 2.0 99.1 Comments does not follow commands General: No acute distress Lungs: Crackles, Other (rhonchi upper chest) Cardiovascular: S1, S2 Abdomen: Soft, Other (mildly tender) Extremities: Other (trace edema) Skin: Warm Labs Laboratory Tests Test 11/27/18 06:15 11/28/18 00:29 11/28/18 05:25 White Blood Count 4.6 x10^3/uL (4.0-11.0) 5.9 x10^3/uL (4.0-11.0) Red Blood Count 3.34 x10^6/uL (4.30-5.70) 3.43 x10^6/uL (4.30-5.70) Hemoglobin 11.5 g/dL (13.0-17.5) 11.7 g/dL (13.0-17.5) Hematocrit 33.2 % (39.0-53.0) 34.1 % (39.0-53.0) Mean Corpuscular Volume 99 fL (79-100) 99 fL (79-100) Mean Corpuscular Hemoglobin 34 pg (25-35) 34 pg (25-35) Mean Corpuscular Hemoglobin Concent 35 g/dL (31-37) 35 g/dL (31-37) Red Cell Distribution Width 13.0 % (11.5-14.5) 13.5 % (11.5-14.5) Platelet Count 275 x10^3/uL (140-400) 292 x10^3/uL (140-400) Neutrophils (%) (Auto) 69 % (31-73) 70 % (31-73) Lymphocytes (%) (Auto) 17 % (24-48) 16 % (24-48) Monocytes (%) (Auto) 8 % (0-9) 9 % (0-9) Eosinophils (%) (Auto) 5 % (0-3) 4 % (0-3) Basophils (%) (Auto) 1 % (0-3) 1 % (0-3) Neutrophils # (Auto) 3.2 x10^3/uL (1.8-7.7) 4.1 x10^3/uL (1.8-7.7) Lymphocytes # (Auto) 0.8 x10^3/uL (1.0-4.8) 1.0 x10^3/uL (1.0-4.8) Monocytes # (Auto) 0.4 x10^3/uL (0.0-1.1) 0.5 x10^3/uL (0.0-1.1) Eosinophils # (Auto) 0.2 x10^3/uL (0.0-0.7) 0.3 x10^3/uL (0.0-0.7) Basophils # (Auto) 0.1 x10^3/uL (0.0-0.2) 0.1 x10^3/uL (0.0-0.2) Sodium Level 142 mmol/L (136-145) 142 mmol/L (136-145) Potassium Level 4.0 mmol/L (3.5-5.1) 4.2 mmol/L (3.5-5.1) Chloride Level 105 mmol/L (98-107) 104 mmol/L (98-107) Carbon Dioxide Level 35 mmol/L (21-32) 35 mmol/L (21-32) Anion Gap 2 (6-14) 3 (6-14) Blood Urea Nitrogen 11 mg/dL (8-26) 14 mg/dL (8-26) Creatinine 0.6 mg/dL (0.7-1.3) 0.6 mg/dL (0.7-1.3) Estimated GFR (Cockcroft-Gault) 133.6 133.6 Glucose Level 122 mg/dL (70-99) 105 mg/dL (70-99) Calcium Level 8.3 mg/dL (8.5-10.1) 8.7 mg/dL (8.5-10.1) Glucose (Fingerstick) 107 mg/dL (70-99) Laboratory Tests Test 11/28/18 00:29 11/28/18 05:25 Glucose (Fingerstick) 107 mg/dL (70-99) White Blood Count 5.9 x10^3/uL (4.0-11.0) Red Blood Count 3.43 x10^6/uL (4.30-5.70) Hemoglobin 11.7 g/dL (13.0-17.5) Hematocrit 34.1 % (39.0-53.0) Mean Corpuscular Volume 99 fL (79-100) Mean Corpuscular Hemoglobin 34 pg (25-35) Mean Corpuscular Hemoglobin Concent 35 g/dL (31-37) Red Cell Distribution Width 13.5 % (11.5-14.5) Platelet Count 292 x10^3/uL (140-400) Neutrophils (%) (Auto) 70 % (31-73) Lymphocytes (%) (Auto) 16 % (24-48) Monocytes (%) (Auto) 9 % (0-9) Eosinophils (%) (Auto) 4 % (0-3) Basophils (%) (Auto) 1 % (0-3) Neutrophils # (Auto) 4.1 x10^3/uL (1.8-7.7) Lymphocytes # (Auto) 1.0 x10^3/uL (1.0-4.8) Monocytes # (Auto) 0.5 x10^3/uL (0.0-1.1) Eosinophils # (Auto) 0.3 x10^3/uL (0.0-0.7) Basophils # (Auto) 0.1 x10^3/uL (0.0-0.2) Sodium Level 142 mmol/L (136-145) Potassium Level 4.2 mmol/L (3.5-5.1) Chloride Level 104 mmol/L (98-107) Carbon Dioxide Level 35 mmol/L (21-32) Anion Gap 3 (6-14) Blood Urea Nitrogen 14 mg/dL (8-26) Creatinine 0.6 mg/dL (0.7-1.3) Estimated GFR (Cockcroft-Gault) 133.6 Glucose Level 105 mg/dL (70-99) Calcium Level 8.7 mg/dL (8.5-10.1) Medications Active Scripts Medications Dose Route/Sig Max Daily Dose Days Date Category Tramadol Hcl 50 Mg Tablet 50 Mg PO PRN Q6HRS PRN 11/15/18 Rx Zyvox (Linezolid) 600 Mg Tablet 600 Mg PO BID 11/15/18 Rx Mupirocin Cream (Mupirocin) 15 Gm Cream..g. 1 [place] TP TID PRN 11/10/18 Reported Guaifenesin 100 Mg/5 Ml Liquid 100 Mg PO Q8HRS PRN 11/10/18 Reported Fluticasone Propionate Nasal [place] (Fluticasone Propionate) 16 Gm [place].susp 2 [place] NS DAILY 11/10/18 Reported Claritin (Loratadine) 10 Mg Capsule 10 Mg PO DAILY PRN 11/10/18 Reported Stomach Relief (Bismuth Subsalicylate) 262 Mg/15 Ml Oral.susp 262 Mg PEG Q6HRS PRN 11/10/18 Reported Artificial Tears Eye Drops (Dextran 70/Hypromellose) 15 Ml Drops 1 Drop EACHEYE QID PRN 11/10/18 Reported Albuterol Sulfate Neb Soln (Albuterol Sulfate) 2.5 Mg/3 Ml Vial.neb 2.5 Mg NEB Q8HRS PRN 11/10/18 Reported Proair Hfa Inhaler (Albuterol Sulfate) 8.5 Gm Hfa.aer.ad 1 Puff INH PRN Q6HRS PRN 08/08/16 Rx Azithromycin Tablet (Azithromycin) 250 Mg Tablet 1 Pkg PO UD 08/08/16 Rx Impression . 1. Acute respiratory failure, multifactorial. Extubated 11/24 2. Aspiration pneumonia. 3. Suspect gram-negative, possibly gram-positive and anaerobes. 4. Septic shock. resolved 5. Underlying dementia and depression. 6. Type 2 diabetes. 7. Gastroesophageal reflux. 8. Status post PEG tube placement in the past. 9. Multiple other comorbidities as indicated above. 10. Elevated troponin. 11.h/o TBI, with progressive dementia 12. 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 1. extubated. MS at baseline. does not communicate. 2. Continue coverage for both gram-positive and gram-negative organisms. id on case 3. Leave up to PCP to consider vascular surgery input 4. elevate hob 5. TF via PEG, npo 6. abdomen and pelvis.CT REVIEWED 7. follow Cardiology rec 8. Needs prn suction. cannot clear secretions dr gilbert d/w in detail reg code status on 8/8. she will let us know about DNR/DNI d/w RN/ JERI VAZQUEZ MD Nov 28, 2018 09:10
[2018-11-28] MEDS: MULTIVITAMINS,THERAPEUTIC 5 ML ORAL LIQUID. PEG SCH (09:30)
[2018-11-28] MEDS: DOCUSATE 100 MG/10 ML SOLUTION. PO SCH (09:30)
[2018-11-28] MEDS: FAMOTIDINE 20 MG TABLET. PO SCH (09:31)
[2018-11-28] MEDS: ASPIRIN CHEWABLE 81 MG TABLET. PO SCH (09:31)
[2018-11-28] MEDS: METOPROLOL TART IMMED RELEASE 25 MG TABLET. PO SCH (09:31)
[2018-11-28] MEDS: APIXABAN 5 MG TABLET. PO SCH (09:31)
--- NOTE | 2018-11-28 09:43 | PDOC ---
Infectious Disease Note Subjective Subjective Noncommunicative 2L O2 No fevers reported Tube feedings ROS ROS no n/v/d/ Vital Sign Vital Signs Vital Signs Date Time Temp Pulse Resp B/P (MAP) Pulse Ox O2 Delivery O2 Flow Rate FiO2 11/28/18 09:31 98 126/69 11/28/18 07:00 99.1 16 96 Nasal Cannula 2.0 99.1 Physical Exam PHYSICAL EXAM GENERAL: Propped up in bed, lethargic HEENT: Mouth breather, oral cavity dry LUNGS: Clear anteriorly HEART: S1, S2, irregular ABDOMEN: Soft, PEG : [place] EXTREMITIES: No gross edema. 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: Nonverbal, lethargic RIJ - clean Labs Lab Laboratory Tests Test 11/28/18 00:29 11/28/18 05:25 Glucose (Fingerstick) 107 mg/dL (70-99) White Blood Count 5.9 x10^3/uL (4.0-11.0) Red Blood Count 3.43 x10^6/uL (4.30-5.70) Hemoglobin 11.7 g/dL (13.0-17.5) Hematocrit 34.1 % (39.0-53.0) Mean Corpuscular Volume 99 fL (79-100) Mean Corpuscular Hemoglobin 34 pg (25-35) Mean Corpuscular Hemoglobin Concent 35 g/dL (31-37) Red Cell Distribution Width 13.5 % (11.5-14.5) Platelet Count 292 x10^3/uL (140-400) Neutrophils (%) (Auto) 70 % (31-73) Lymphocytes (%) (Auto) 16 % (24-48) Monocytes (%) (Auto) 9 % (0-9) Eosinophils (%) (Auto) 4 % (0-3) Basophils (%) (Auto) 1 % (0-3) Neutrophils # (Auto) 4.1 x10^3/uL (1.8-7.7) Lymphocytes # (Auto) 1.0 x10^3/uL (1.0-4.8) Monocytes # (Auto) 0.5 x10^3/uL (0.0-1.1) Eosinophils # (Auto) 0.3 x10^3/uL (0.0-0.7) Basophils # (Auto) 0.1 x10^3/uL (0.0-0.2) Sodium Level 142 mmol/L (136-145) Potassium Level 4.2 mmol/L (3.5-5.1) Chloride Level 104 mmol/L (98-107) Carbon Dioxide Level 35 mmol/L (21-32) Anion Gap 3 (6-14) Blood Urea Nitrogen 14 mg/dL (8-26) Creatinine 0.6 mg/dL (0.7-1.3) Estimated GFR (Cockcroft-Gault) 133.6 Glucose Level 105 mg/dL (70-99) Calcium Level 8.7 mg/dL (8.5-10.1) Micro Microbiology 11/21/18 Blood Culture - Final, Complete NO GROWTH AFTER 5 DAYS 11/20/18 Urine Culture - Final, Complete 11/20/18 Urine Culture Result 1 (KASIE) - Final, Complete Objective Assessment Sepsis, present on admission on 11/20. improving. cultures neg Acute respiratory failure, s/p extubation 11/24 Leukocytosis - better Elevated troponin. LEVOFLOXACIN ALLERGY. Uncertain what happens when this is taken. A-fib Debility Plan Plan of Care change zosyn to augmentin through tube Monitor labs D/w nursing terminal worker Poor prognosis ok to d/c to [place] RADHA LIZAMA MD Nov 28, 2018 09:43
[2018-11-28] MEDS ORDERED: AMOXICILLIN/K CLAV 875/125MG TABLET. PO SCH (10:00)
[2018-11-28 10:45] VITALS: BP 124/78
[2018-11-28] MEDS ORDERED: AMOXICILLIN/CLAV 400MG/57MG 5 ML ORAL.SUSP. PEG SCH (11:30)
[2018-11-28] MEDS ORDERED: Multivitamins,Therapeutic Liq PEG (11:31)
[2018-11-28] MEDS ORDERED: APIX5TAB PO (11:31)
[2018-11-28] MEDS ORDERED: FAMO20TA5 PO (11:31)
[2018-11-28] MEDS ORDERED: METO25TA4 PO (11:31)
[2018-11-28] MEDS ORDERED: ASPI-630 PO (11:31)
[2018-11-28] MEDS ORDERED: AMOX400S PEG (11:31)
--- NOTE | 2018-11-28 11:34 | PDOC3 ---
Discharge Summary Visit Information Date of Admission: Nov 20, 2018 Date of Discharge: Nov 28, 2018 Admitting Diagnosis Comment: Sepsis Acute respiratory failure, multifactorial. Extubated 11/24 Aspiration pneumonia COPD SOB Dementia Depression DM Diverticulitis GERD Kidney stones TBI from previous suicide attempt Type 2 diabetes. Status post PEG tube placement in the past. Elevated troponin. 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/ poor candidate for w/u and RX Final Diagnosis Problems Medical Problems: (1) Acute respiratory failure Status: Acute (2) Aspiration pneumonia Status: Acute (3) Atrial fibrillation with RVR Status: Acute (4) COPD (chronic obstructive pulmonary disease) Status: Chronic (5) Diabetes mellitus Status: Chronic (6) Diverticulitis Status: Chronic (7) GERD (gastroesophageal reflux disease) Status: Chronic (8) Hypomagnesemia Status: Acute (9) Kidney stones Status: Chronic (10) Sepsis Status: Acute (11) UTI (urinary tract infection) Status: Acute Brief Hospital Course Allergies Allergies Coded Allergies Type Severity Reaction Last Updated Verified cyclobenzaprine Allergy Intermediate 04/28/16 Yes ibuprofen Allergy Intermediate 04/28/16 Yes ketorolac Allergy Intermediate 04/28/16 Yes levofloxacin Allergy Intermediate 04/28/16 Yes meperidine Allergy Intermediate 04/28/16 Yes oxycodone Allergy Intermediate 04/28/16 Yes propoxyphene Allergy Intermediate 04/28/16 Yes Vital Signs Vital Signs Date Time Temp Pulse Resp B/P (MAP) Pulse Ox O2 Delivery O2 Flow Rate FiO2 11/28/18 10:45 98.7 81 18 124/78 (93) 99 Nasal Cannula 2.0 98.7 Lab Results Laboratory Tests Test 11/27/18 06:15 11/28/18 00:29 11/28/18 05:25 White Blood Count 4.6 x10^3/uL (4.0-11.0) 5.9 x10^3/uL (4.0-11.0) Red Blood Count 3.34 x10^6/uL (4.30-5.70) 3.43 x10^6/uL (4.30-5.70) Hemoglobin 11.5 g/dL (13.0-17.5) 11.7 g/dL (13.0-17.5) Hematocrit 33.2 % (39.0-53.0) 34.1 % (39.0-53.0) Mean Corpuscular Volume 99 fL (79-100) 99 fL (79-100) Mean Corpuscular Hemoglobin 34 pg (25-35) 34 pg (25-35) Mean Corpuscular Hemoglobin Concent 35 g/dL (31-37) 35 g/dL (31-37) Red Cell Distribution Width 13.0 % (11.5-14.5) 13.5 % (11.5-14.5) Platelet Count 275 x10^3/uL (140-400) 292 x10^3/uL (140-400) Neutrophils (%) (Auto) 69 % (31-73) 70 % (31-73) Lymphocytes (%) (Auto) 17 % (24-48) 16 % (24-48) Monocytes (%) (Auto) 8 % (0-9) 9 % (0-9) Eosinophils (%) (Auto) 5 % (0-3) 4 % (0-3) Basophils (%) (Auto) 1 % (0-3) 1 % (0-3) Neutrophils # (Auto) 3.2 x10^3/uL (1.8-7.7) 4.1 x10^3/uL (1.8-7.7) Lymphocytes # (Auto) 0.8 x10^3/uL (1.0-4.8) 1.0 x10^3/uL (1.0-4.8) Monocytes # (Auto) 0.4 x10^3/uL (0.0-1.1) 0.5 x10^3/uL (0.0-1.1) Eosinophils # (Auto) 0.2 x10^3/uL (0.0-0.7) 0.3 x10^3/uL (0.0-0.7) Basophils # (Auto) 0.1 x10^3/uL (0.0-0.2) 0.1 x10^3/uL (0.0-0.2) Sodium Level 142 mmol/L (136-145) 142 mmol/L (136-145) Potassium Level 4.0 mmol/L (3.5-5.1) 4.2 mmol/L (3.5-5.1) Chloride Level 105 mmol/L (98-107) 104 mmol/L (98-107) Carbon Dioxide Level 35 mmol/L (21-32) 35 mmol/L (21-32) Anion Gap 2 (6-14) 3 (6-14) Blood Urea Nitrogen 11 mg/dL (8-26) 14 mg/dL (8-26) Creatinine 0.6 mg/dL (0.7-1.3) 0.6 mg/dL (0.7-1.3) Estimated GFR (Cockcroft-Gault) 133.6 133.6 Glucose Level 122 mg/dL (70-99) 105 mg/dL (70-99) Calcium Level 8.3 mg/dL (8.5-10.1) 8.7 mg/dL (8.5-10.1) Glucose (Fingerstick) 107 mg/dL (70-99) Laboratory Tests Test 11/28/18 00:29 11/28/18 05:25 Glucose (Fingerstick) 107 mg/dL (70-99) White Blood Count 5.9 x10^3/uL (4.0-11.0) Red Blood Count 3.43 x10^6/uL (4.30-5.70) Hemoglobin 11.7 g/dL (13.0-17.5) Hematocrit 34.1 % (39.0-53.0) Mean Corpuscular Volume 99 fL (79-100) Mean Corpuscular Hemoglobin 34 pg (25-35) Mean Corpuscular Hemoglobin Concent 35 g/dL (31-37) Red Cell Distribution Width 13.5 % (11.5-14.5) Platelet Count 292 x10^3/uL (140-400) Neutrophils (%) (Auto) 70 % (31-73) Lymphocytes (%) (Auto) 16 % (24-48) Monocytes (%) (Auto) 9 % (0-9) Eosinophils (%) (Auto) 4 % (0-3) Basophils (%) (Auto) 1 % (0-3) Neutrophils # (Auto) 4.1 x10^3/uL (1.8-7.7) Lymphocytes # (Auto) 1.0 x10^3/uL (1.0-4.8) Monocytes # (Auto) 0.5 x10^3/uL (0.0-1.1) Eosinophils # (Auto) 0.3 x10^3/uL (0.0-0.7) Basophils # (Auto) 0.1 x10^3/uL (0.0-0.2) Sodium Level 142 mmol/L (136-145) Potassium Level 4.2 mmol/L (3.5-5.1) Chloride Level 104 mmol/L (98-107) Carbon Dioxide Level 35 mmol/L (21-32) Anion Gap 3 (6-14) Blood Urea Nitrogen 14 mg/dL (8-26) Creatinine 0.6 mg/dL (0.7-1.3) Estimated GFR (Cockcroft-Gault) 133.6 Glucose Level 105 mg/dL (70-99) Calcium Level 8.7 mg/dL (8.5-10.1) Brief Hospital Course Mr. 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 Information Condition at Discharge: Improved, Stable Disposition/Orders: D/C to Home Scheduled Amoxicillin/Potassium Clav (Amox Tr-K Clv 400-57/5 Susp) 400 Mg/5 Ml Susp.recon, 11 ML PEG Q12HR for asp pna for 10 Days Prescribed by: CAMILA DE on 11/28/18 1131 Apixaban (Eliquis) 5 Mg Tablet, 5 MG PO BID for bed boiund, #60 Prescribed by: CAMILA DE on 11/28/18 1131 Aspirin (Aspirin) 81 Mg Tab.chew, 81 MG PO DAILYWBKFT for a fib, #90 Prescribed by: CAMILA DE on 11/28/18 1131 Azithromycin (Azithromycin Tablet) 250 Mg Tablet, 1 PKG PO UD, #6 Prescribed by: LIA AGUILERA on 08/08/16 0712 Famotidine (Famotidine) 20 Mg Tablet, 20 MG PO BID for gerd, #60 Prescribed by: CAMILA DE on 11/28/18 1131 Fluticasone Propionate (Fluticasone Propionate Nasal [place]) 16 Gm [place].susp, 2 SPRAY NS DAILY for congestion, #1 Ref 11 (Reported) Entered as Reported by: JOHNSON MEDRANO on 11/10/181744 Linezolid (Zyvox) 600 Mg Tablet, 600 MG PO BID for aspiration bacteremia, #14 Prescribed by: CAMILA DE on 11/15/18 1246 Metoprolol Tartrate (Metoprolol Tartrate) 25 Mg Tablet, 12.5 MG PO BID for a fib, #60 Prescribed by: CAMILA DE on 11/28/18 1131 [Multivitamins,Therapeutic Liq] 5 ML LIQUID, 5 ML PEG DAILY for mvi, #60 Prescribed by: CAMILA DE on 11/28/18 1131 Scheduled PRN Albuterol Sulfate (Proair Hfa Inhaler) 8.5 Gm Hfa.aer.ad, 1 PUFF INH PRN Q6HRS PRN for SHORTNESS OF BREATH, #1 Prescribed by: LIA AGUILERA on 08/08/16 0713 Last Action: Continued on 11/22/18845 by DUONG CRAWLEY Albuterol Sulfate (Albuterol Sulfate Neb Soln) 2.5 Mg/3 Ml Vial.neb, 2.5 MG NEB Q8HRS PRN for WHEEZING, Ref 0 (Reported) Entered as Reported by: JOHNSON MEDRANO on 11/10/181744 Last Action: Continued on 11/22/18845 by DUONG CRAWLEY Bismuth Subsalicylate (Stomach Relief) 262 Mg/15 Ml Oral.susp, 262 MG PEG Q6HRS PRN for upset stomach, (Reported) Entered as Reported by: JOHNSON MEDRANO on 11/10/181744 Dextran 70/Hypromellose (Artificial Tears Eye Drops) 15 Ml Drops, 1 DROP EACHEYE QID PRN for dry eye, #15 Ref 5 (Reported) Entered as Reported by: JOHNSON MEDRANO on 11/10/181744 Last Action: Converted on 11/22/18845 by DUONG CRAWLEY Guaifenesin (Guaifenesin) 100 Mg/5 Ml Liquid, 100 MG PO Q8HRS PRN for COUGH, (Reported) Entered as Reported by: JOHNSON MEDRANO on 11/10/181744 Loratadine (Claritin) 10 Mg Capsule, 10 MG PO DAILY PRN for ALLERGIES, (Reported) Entered as Reported by: JOHNSON MEDRANO on 11/10/181744 Mupirocin Calcium (Mupirocin Cream) 15 Gm Cream..g., 1 NABIL TP TID PRN for redness around PEG TUBE, (Reported) Entered as Reported by: JOHNSON MEDRANO on 11/10/181744 Last Action: Continued on 11/22/18 0846 by DUONG CRAWLEY Tramadol Hcl (Tramadol Hcl) 50 Mg Tablet, 50 MG PO PRN Q6HRS PRN for PAIN, #30 Prescribed by: CAMILA DE on 11/15/18 1246 CAMILA DE MD Nov 28, 2018 11:34
--- NOTE | 2018-11-28 12:52 | SNU/HH DC ---
DISCHARGE WITH HOME HEALTH DISCHARGE INFORMATION: Discharge Date: Nov 28, 2018 Final Diagnosis: Problems Medical Problems: (1) Acute respiratory failure Status: Acute (2) Aspiration pneumonia Status: Acute (3) Atrial fibrillation with RVR Status: Acute (4) COPD (chronic obstructive pulmonary disease) Status: Chronic (5) Diabetes mellitus Status: Chronic (6) Diverticulitis Status: Chronic (7) GERD (gastroesophageal reflux disease) Status: Chronic (8) Hypomagnesemia Status: Acute (9) Kidney stones Status: Chronic (10) Sepsis Status: Acute (11) UTI (urinary tract infection) Status: Acute Condition on Discharge: Stable CODE STATUS: Code Status: Full HOME HEALTH: Face to Face: I certify this patient is under my care and that I, or a nurse practitioner or physician's office assistant working with me, had a face to face encounter that meets the physician face to face encounter requirements with this patient on []. Medical Complications: Dementia RN For Eval/Treatment: Yes Physical Therapy For: Evalulation/Treatment Occupational Therapy For: Evaluation/Treatment Speech Language Pathology For: Swallow Cognition Home Health Aide For: Self-care VICE PRESIDENT For: Community Resources Pt Meets Homebound Status: Poor cognition POST DISCHARGE ORDERS: Activity Instructions for Disc: Bedrest today Weight Bearing Status after Di: Non weight bearing DIET AFTER DISCHARGE: NPO< TF via peg, keep upright when feeding CHECKS AFTER DISCHARGE: Checks after discharge: Check blood press - daily, Check blood sugar, ac/hs CERTIFICATION STATEMENT: Certification Statement: Certification Statement: Based on the above finding, I certify that this patient is confined to the home and needs intermittent senior care care, physical therapy and/or speech therapy, or continues to need occupational therapy.~ This patient is under my care, and I have initiated the establishment of the plan of care.~ This patient will be followed by myself or a community physician who will periodically review the plan of care. Home Meds Active Scripts [Multivitamins,Therapeutic Liq] 5 ML LIQUID No Conflict Check, 5 ML PEG DAILY for mvi, #60 Prov:CAMILA DE MD 11/28/18 Famotidine (FAMOTIDINE) 20 Mg Tablet, 20 MG PO BID for gerd, #60 TAB Prov:CAMILA DE MD 11/28/18 Aspirin (ASPIRIN) 81 Mg Tab.chew, 81 MG PO DAILYWBKFT for a fib, #90 TAB.CHEW Prov:CAMILA DE MD 11/28/18 Metoprolol Tartrate (METOPROLOL TARTRATE) 25 Mg Tablet, 12.5 MG PO BID for a fib, #60 TAB Prov:CAMILA DE MD 11/28/18 Apixaban (ELIQUIS) 5 Mg Tablet, 5 MG PO BID for bed boiund, #60 TAB Prov:CAMILA DE MD 11/28/18 Amoxicillin/Potassium Clav (AMOX TR-K CLV 400-57/5 SUSP) 400 Mg/5 Ml Susp.recon, 11 ML PEG Q12HR for asp pna for 10 Days, MISC Prov:CAMILA DE MD 11/28/18 Tramadol Hcl (TRAMADOL HCL) 50 Mg Tablet, 50 MG PO PRN Q6HRS PRN for PAIN, #30 TAB Prov:CAMILA DE MD 11/15/18 Albuterol Sulfate (PROAIR HFA INHALER) 8.5 Gm Hfa.aer.ad, 1 PUFF INH PRN Q6HRS PRN for SHORTNESS OF BREATH, #1 INHALER Prov:LIA AUGILERA MD 08/08/16 Reported Medications Mupirocin Calcium (MUPIROCIN CREAM) 15 Gm Cream..g., 1 NABIL TP TID PRN for redness around PEG TUBE, TUBE 11/10/18 Guaifenesin (GUAIFENESIN) 100 Mg/5 Ml Liquid, 100 MG PO Q8HRS PRN for COUGH, LIQUID 11/10/18 Fluticasone Propionate (FLUTICASONE PROPIONATE [place]AL SPRAY) 16 Gm [place].susp, 2 SPRAY NS DAILY for congestion, #1 INHALER 11 Refills 11/10/18 Loratadine (CLARITIN) 10 Mg Capsule, 10 MG PO DAILY PRN for ALLERGIES, CAP 11/10/18 Bismuth Subsalicylate (STOMACH RELIEF) 262 Mg/15 Ml Oral.susp, 262 MG PEG Q6HRS PRN for upset stomach, MISC 11/10/18 Dextran 70/Hypromellose (ARTIFICIAL TEARS EYE DROPS) 15 Ml Drops, 1 DROP EACHEYE QID PRN for dry eye, #15 ML 5 Refills 11/10/18 Albuterol Sulfate (ALBUTEROL SULFATE NEB SOLN) 2.5 Mg/3 Ml Vial.neb, 2.5 MG NEB Q8HRS PRN for WHEEZING, EACH 0 Refills 11/10/18 Discontinued Scripts Linezolid (ZYVOX) 600 Mg Tablet, 600 MG PO BID for aspiration bacteremia, #14 TAB Prov:CAMILA DE MD 11/15/18 Azithromycin (AZITHROMYCIN TABLET) 250 Mg Tablet, 1 PKG PO UD, #6 TAB Prov:LIA AGUILERA MD 08/08/16 CAMILA DE MD Nov 28, 2018 12:52
--- NOTE | 2018-11-28 13:39 | NUR ---
SS following up with discharge planning. Discharge orders for home healthcare received. SS phoned and faxed discharge orders and referral to [facility], ; fax [phone].
--- NOTE | 2018-11-28 15:00 | NUR ---
Wound Care Wound care follow for peg tube excoriation. Pt has reddened area under peg tube, red but not open drainage from PEG tube insertion area. Cleansed area with saline wash and applied skin prep, ostomy powder and drain sponge, recommend to change daily and as needed for drainage. No other wounds noted on full skin inspection. Pt left on left side with heels floated. WC will continue to follow for possible changes.
[2018-11-28] MEDS: ANTI-COAG MONITOR BY PHARMACY. MC PRN (15:08)
== END 2018-11-28 15:36 | disposition home health service (06) | DRG 871 ==
LOC: ER 22:19 → 1 WEST ICU 23:00 → 2 NORTH 11-25 20:40
PROVIDERS: ADMIT Internal Medicine; ATTEND Internal Medicine
PROC: 5A1945Z Respiratory Ventilation, 24-96 Consecutive Hours (ICD-10-PCS; principal; 2018-11-20)
PROC: 02HV33Z Insertion of Infusion Device into Superior Vena Cava, Percutaneous Approach (ICD-10-PCS; 2018-11-20)
PROC: B548ZZA Ultrasonography of Superior Vena Cava, Guidance (ICD-10-PCS; 2018-11-20)
PROC: 0BH17EZ Insertion of Endotracheal Airway into Trachea, Via Natural or Artificial Opening (ICD-10-PCS; 2018-11-20)
PROC: 0D9670Z Drainage of Stomach with Drainage Device, Via Natural or Artificial Opening (ICD-10-PCS; 2018-11-21)
DX: A41.9 Sepsis, unspecified organism (principal); J69.0 Pneumonitis due to inhalation of food and vomit; R65.21 Severe sepsis with septic shock; J96.21 Acute and chronic respiratory failure with hypoxia; N39.0 Urinary tract infection, site not specified; E87.2 Acidosis; J90 Pleural effusion, not elsewhere classified; K57.92 Diverticulitis of intestine, part unspecified, without perforation or abscess without bleeding; E11.9 Type 2 diabetes mellitus without complications; E83.42 Hypomagnesemia; F03.90 Unspecified dementia, unspecified severity, without behavioral disturbance, psychotic disturbance, mood disturbance, and anxiety; F32.9 Major depressive disorder, single episode, unspecified; F43.10 Post-traumatic stress disorder, unspecified; I48.91 Unspecified atrial fibrillation; J43.9 Emphysema, unspecified; K21.9 Gastro-esophageal reflux disease without esophagitis; N20.0 Calculus of kidney; R13.10 Dysphagia, unspecified; I71.4 Abdominal aortic aneurysm, without rupture; B19.20 Unspecified viral hepatitis C without hepatic coma; Z79.899 Other long term (current) drug therapy; Z82.49 Family history of ischemic heart disease and other diseases of the circulatory system; Z83.3 Family history of diabetes mellitus; Z87.442 Personal history of urinary calculi; Z87.820 Personal history of traumatic brain injury; Z87.891 Personal history of nicotine dependence; Z91.5 Personal history of self-harm; Z93.1 Gastrostomy status; Z90.49 Acquired absence of other specified parts of digestive tract; Z88.6 Allergy status to analgesic agent; Z88.1 Allergy status to other antibiotic agents; Z88.8 Allergy status to other drugs, medicaments and biological substances
CPT/HCPCS: 31500; 36415; 36556; 36600; 51702; 71045; 74018; 74176; 80048; 80053; 80202; 81001; 82805; 82962; 83605; 83690; 83735; 83880; 84484; 85007; 85025; 85610; 87040; 87086; 87641; 93005; 94002; 94003; 94640; 96365; J1650; J2250; J2543; J2704; J3010; J3370; J3475; J3490; J7030; J7040; J7050; J7613; 99291-25; G0378